=== PATIENT | female | born 1945 | race Caucasian/White ===

== ENCOUNTER 2019-07-25 09:45 | Outpatient (CLI) | payer MEDICARE, OTHER, SELFPAY ==
--- NOTE | 2019-07-25 10:07 | MM_ITS ---
WS: [id number] BILATERAL DIGITAL SCREENING MAMMOGRAPHY WITH CAD CLINICAL INFORMATION: SCREENING HISTORY: Screening mammogram. No current complaints. COMPARISON: TECHNIQUE: Bilateral CC and MLO views. FINDINGS: The breasts are composed of heterogeneous fibroglandular density tissue, which can limit the detectio n of small underlying mass lesions. Lucent centered calcifications. No suspicious mass, asymmetry, ca lcifications, or architectural distortion. No evidence of malignancy. MM/[place] [id number] IMPRESSION: BI-RADS: 2-Benign FOLLOW UP: 1 Year Follow-up Recommend return to annual screening mammography.
== END 2019-07-25 09:46 | disposition home or self-care (01) ==
PROVIDERS: Family Provider Family Medicine; PCP Family Medicine; Visit Provider Nurse Practitioner
DX: Z12.31 Encounter for screening mammogram for malignant neoplasm of breast (principal); C83.38 Diffuse large B-cell lymphoma, lymph nodes of multiple sites; Z45.2 Encounter for adjustment and management of vascular access device
CPT/HCPCS: 77067; 96523

== ENCOUNTER 2019-08-04 22:19 | Emergency (ER) | payer MEDICARE, OTHER, SELFPAY ==
[2019-08-04 22:25] VITALS: BP 119/70; PULSE 77; RESP 16; TEMP 36.6; O2SAT 97; BMI 22.6
--- NOTE | 2019-08-04 22:31 | ED_ITS ---
Entered by Tanya Anguiano, acting as scribe for Michael Ryan DO HPI - Eye Problem General: Chief complaint: Eye Problems Stated complaint: left eye redness Time Seen by Provider: 08/04/19 22:31 Source: patient Mode of arrival: ambulatory Limitations: no limitations History of Present Illness: HPI Narrative: 74 yo f came to the er pov for eye problems. Onset was today. Pt states that she woke up with both eyes pink. Pt states that her vision is fine. MD chief complaint: eye redness Onset (ago): day(s) (today) Onset description: sudden Duration: constant Location: left eye Associated symptoms: Denies fever(s), headache(s), nausea or vomiting Review of Systems Const: Denies: fever Eyes: Denies: change in vision or blurry vision ENMT: Denies: painful swallowing, swelling of lips/tongue, bleeding gums, dental pain, Change in hearing, nose bleeds, post nasal drip or facial/sinus pain Card: Denies: chest pain, palpitations, irregular heart rhythm, edema, swelling of feet/ankles, shortness of breath on exertion or shortness of breath when lying down Resp: Denies: shortness of breath, productive cough, non-productive cough or wheezing GI: Denies: nausea or vomiting Neuro: Denies: headache PFSH ED PFSH: Statuses (acute, chronic, etc) shown below reflect problem list status as previously entered and may not be historically accurate Social History Smoking and tobacco status: never smoked Physical Exam Const: GENERAL APPEARANCE: well developed ORIENTATION/CONSCIOUSNESS: Yes oriented to person, Yes oriented to place and Yes oriented to time HENMT: COMMON NORMALS: normocephalic, external ears normal and external nose normal HEAD & SCALP: normocephalic; no scalp tenderness FACE & SINUS: normal facial exam NOSE: external nose normal and no nasal discharge EXTERNAL EAR: Yes external ears normal MOUTH: tongue normal TEETH & GINGIVA: no abnormal tooth and associated gingiva THROAT: posterior oropharynx normal; no peritonsillar mass Eye: COMMON NORMALS: PERRL and EOMs intact bilaterally EYELID: eyelids normal CONJUNCTIVA: Yes conjunctiva abnormal positive left subconjunctival hemorrhage PUPIL: Yes PERRL Neck/C-Spine: COMMON NORMALS: full ROM GENERAL: No tracheal deviation Chest: COMMONS NORMALS: inspection of chest normal CHEST: No tenderness Resp: COMMON NORMALS: clear to auscultation bilaterally EFFORT & INSPECTION: No tachypneic, No respiratory distress, No retractions, No uses accessory muscles and No tracheal deviation AUSCULTATION: clear to auscultation bilaterally, no rhonchi, no wheezes and lung sounds not diminished Cardio: COMMON NORMALS: regular rate and regular rhythm RATE: regular rate RHYTHM: regular rhythm HEART SOUNDS: no murmurs PERIPHERAL PULSES: radial pulses present GI: INSPECTION: No abdominal distension PALPATION: No guarding and No rigid Neuro: SENSORIUM/ORIENTATION: Yes oriented to person, Yes oriented to place and Yes oriented to time Psych: COMMON NORMALS: mental status grossly normal Skin: COMMON NORMALS: no rashes or lesions noted GENERAL SKIN EXAM: no rashes or lesions noted Course ED course: Nonpainful redness to the left eye, appears to be subconjunctival hemorrhage. The patient states that she was lifting buckets of dirt earlier in the day which may be a cause Vital Signs: Vital signs: Vital Signs Temperature 97.8 F 08/04/19 22:25 Pulse Rate 61 08/04/19 23:16 Respiratory Rate 18 08/04/19 23:16 Blood Pressure 116/74 08/04/19 23:16 Pulse Oximetry 98 08/04/19 23:16 Discharge Plan Discharge Patient Disposition: Home, Self-Care Clinical Impression: Subconjunctival hemorrhage Qualifiers: Laterality: left Qualified Code(s): H11.32 - Conjunctival hemorrhage, left eye Condition: Stable Prescriptions: No Action Unable to Assess RF: 0 Discharge Orders: Discharge Order (Routine); Ordered 08/04/19 Ordered By: Michael Ryan Referrals: Jaycee Reed MD [Primary Care Provider] - Tevin Diaz MD [Physician] - 4-7 days Discharge Diet: Usual diet Discharge Activity: Increase activity as tolerated Patient Instructions: Subconjunctival Hemorrhage (ED) Activity Restrictions/Additional Instructions: Limit straining or forceful actions. Return for blurred vision, eye pain, other concerning symptoms Discharge Date/Time: 08/04/19 23:14 Coding Level of Care Code ED Winemaker for Chg Fwd The documentation recorded by the Silvio lynn Stephanie Lyn, accurately reflects the service I personally performed and the decisions made by me, Michael Ryan, DO Aug 04, 2019 22:19
[2019-08-04 23:16] VITALS: BP 116/74; PULSE 61; RESP 18; O2SAT 98
== END 2019-08-04 23:14 | disposition home or self-care (01) ==
PROVIDERS: Emergency Provider Emergency Medicine; Family Provider Family Medicine; PCP Family Medicine
DX: H11.32 Conjunctival hemorrhage, left eye (principal)
CPT/HCPCS: 99281

== ENCOUNTER 2019-08-24 11:22 | Outpatient (CLI) | payer MEDICARE, OTHER, SELFPAY | END 2019-08-24 11:23 | disposition home or self-care (01) | LOC: ONCMED 11:22 | PROVIDERS: Family Provider Family Medicine; PCP Family Medicine; Visit Provider Internal Medicine Medical Oncology | DX: Z45.2 Encounter for adjustment and management of vascular access device (principal) | CPT/HCPCS: 96523 ==

== ENCOUNTER 2019-09-21 10:09 | Outpatient (CLI) | payer MEDICARE, OTHER, SELFPAY | END 2019-09-21 10:10 | disposition home or self-care (01) | LOC: ONCMED 10:09 | PROVIDERS: Family Provider Family Medicine; PCP Family Medicine; Visit Provider Internal Medicine Medical Oncology | DX: Z45.2 Encounter for adjustment and management of vascular access device (principal) | CPT/HCPCS: 96523 ==

== ENCOUNTER 2019-10-22 09:37 | Outpatient (CLI) | payer MEDICARE, OTHER, SELFPAY | END 2019-10-22 09:38 | disposition home or self-care (01) | LOC: ONCMED 09:37 | PROVIDERS: Family Provider Family Medicine; PCP Family Medicine; Visit Provider Internal Medicine Medical Oncology | DX: Z45.2 Encounter for adjustment and management of vascular access device (principal) | CPT/HCPCS: 96523 ==

== ENCOUNTER 2019-11-22 10:03 | Outpatient (CLI) | payer MEDICARE, OTHER, SELFPAY | END 2019-11-22 10:04 | disposition home or self-care (01) | LOC: ONCMED 10:05 | PROVIDERS: PCP Family Medicine; Visit Provider Internal Medicine Medical Oncology | DX: Z45.2 Encounter for adjustment and management of vascular access device (principal); C83.38 Diffuse large B-cell lymphoma, lymph nodes of multiple sites | CPT/HCPCS: 96523 ==

== ENCOUNTER 2019-12-18 09:18 | Outpatient (CLI) | payer MEDICARE, OTHER, SELFPAY ==
--- NOTE | 2019-12-18 09:37 | MR_ITS ---
WS: [id number] MRI LEFT KNEE NONCONTRAST TECHNIQUE: Axial PD, coronal PD fat sat, coronal PD, sagittal PD, and sagittal PD fat-sat images obta ined. CLINICAL INFORMATION: LT MEDIAL KNEE PAIN COMPARISON: None. FINDINGS: Normal anterior and posterior cruciate ligaments. Distal quadriceps and patella tendons are intact. H ypertrophic patella. Chronic degenerative narrowing medial and lateral joint compartments. Chronic th inning of the menisci. Horizontal and radial tear involving the posterior horn medial meniscus extend ing to the articular surface. Lateral meniscus is better preserved. Small amount of edema about the m edial meniscus. Edema along the superficial and deep fibers of the MCL which appears intact consistent with grade 2 i njury. Normal LCL. Degenerative edema involving the medial joint compartment in the femoral condyle a nd tibial plateau. Hypertrophic changes along the joint line. MR/MR knee LT wo con* [id number] IMPRESSION: 1. Normal anterior and posterior cruciate ligaments. 2. Horizontal and radial tear involving the posterior horn medial meniscus ext ending to the articular surface. 3. Advanced degenerative narrowing involving the medial joint compartment with near complete loss of joint space and subchondral edema. 4. Grade 2 ligamentous injury involving the MCL which is intact.
== END 2019-12-18 09:19 | disposition home or self-care (01) ==
LOC: RADWPI 09:23
PROVIDERS: Family Provider Family Medicine; PCP Family Medicine; Visit Provider Family Medicine
DX: M25.562 Pain in left knee (principal); S83.242A Other tear of medial meniscus, current injury, left knee, initial encounter; X58.XXXA Exposure to other specified factors, initial encounter
CPT/HCPCS: 73721

== ENCOUNTER 2019-12-24 11:46 | Outpatient (CLI) | payer MEDICARE, OTHER, SELFPAY ==
[2019-12-24 12:24] LABS: Basophils % 0.2 %; Eosinophils # 0.1 10^3/uL (0.0-0.8); Eosinophils % 1.7 %; Hematocrit 32.7 % (37.0-47.0); Hemoglobin 10.6 g/dL (11.5-15.3); Lymphocytes # 1.5 10^3/uL (0.8-4.8); Lymphocytes % 32.9 %; Mean Corpuscular HGB Conc 32.4 g/dL (30.0-36.0); Mean Corpuscular Hemoglobin 33.3 pg (28.0-34.0); Mean Corpuscular Volume 102.8 fL (81-99); Mean Platelet Volume 8.9 fL (7.4-10.4); Monocytes # 0.4 10^3/uL (0.2-0.9); Monocytes % 8.9 %; Neutrophils # 2.6 10^3/uL (1.8-7.7); Neutrophils % 56.1 %; Nucleated Red Blood Cells % 0 %; Platelet Count 149 10^3/cmm (130-400); Red Blood Count 3.18 10^6/uL (4.1-5.3); White Blood Count 4.6 10^3/uL (4.0-10.0)
[2019-12-24 12:37] LABS: Alanine Aminotransferase 18 U/L (0-33); Alkaline Phosphatase 71 IU/L (35-105); Anion Gap 14.9 (5-19); Aspartate Amino Transferase 20 U/L (0-32); Blood Urea Nitrogen 16 mg/dL (8-23); Calcium 8.8 mg/dL (8.5-10.5); Carbon Dioxide 28 mmol/L (22-29); Chloride 101 mmol/L (98-107); Glucose 144 mg/dL (65-115); Osmolality Calculated 289 mOsm/kg (285-295); Potassium 3.9 mmol/L (3.5-5.1); Sodium 140 mmol/L (136-145); Total Bilirubin 0.2 mg/dL (0.15-1.2)
[2019-12-24 14:30] LABS: Lactate Dehydrogenase 212 U/L (135-214)
--- NOTE | 2019-12-28 09:33 | ONC FU_ITS ---
Dr. Noel Patient Follow-Up Note Patient: Ira Frost Unit #: [id number]: [id number] Dicatated By: Ehsan Noel M.D.Date of Visit:Dec 24, 2019 Onc Med Follow-up/Prog Note Chief Complaint: Lymphoma. 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 She was initially diagnosed with low-grade B cell lymphoma in August of 1999 when she presented with a chylous pleural effusion. There was also extensive retroperitoneal adenopathy. By CT scan it measured 7.5 x 5 cm and extended for a vertical length of 17-18 cm, from the level of the celiac axis to a level 4-5 cm below the bifurcation of the aorta. There was some associated hydronephrosis. The diagnosis was confirmed by right inguinal lymph node biopsy which showed grade I follicular lymphoma. She had an excellent response to treatment with 6 cycles of CVP chemotherapy, which she completed in January of 2000. She developed significant lower extremity pain following her chemotherapy. 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 Over time, it gradually resolved. She had no further treatment for the lymphoma. She was seen in March 2012 with new onset of lower extremity edema. A specific cause for that was never determined. There was no evidence of deep vein thrombosis by venous Doppler. CT scans did show some mesenteric and retroperitoneal adenopathy, but the largest lymph nodes measured only up to 1.5 cm, and they were FDG negative by PET. It was, nonetheless, felt to be suspicious for low-grade non-Hodgkin's lymphoma. There was also some mediastinal adenopathy, which appeared to be more likely reactive. Her swelling subsequently resolved and she had no further problems with the exception of an acute illness in June 2012 when she developed dizziness and vomiting. Evaluation in the emergency room was unrevealing. Her symptoms subsequently resolved, so this was most likely a viral syndrome. She remained on observation/expectant management. As of October 2015, her follow-up CT scan had shown some increase in the adenopathy, but with the largest node still relatively small at 2.24 cm, and she continued on observation. On 07/20/2016 she presented to the emergency room with an enlarging mass in the right side of the neck. She had been aware of it for a while, but she she had only recently made us aware of it. She was seen by Dr. Michaud as an outpatient and she underwent left axillary lymph node biopsy and placement of Port-A-Cath venous access device on 07/22/2016. The procedure was complicated by pneumothorax, requiring chest tube placement and hospitalization. Pathology on the lymph node biopsy was consistent with low-grade follicular lymphoma (grade 1-2/3). Restaging CT scans of the chest, abdomen, and pelvis on 07/28/2016 showed bulky right supraclavicular adenopathy. It measured 8.6 x 7.3 cm, but it was incompletely included on that study. A left subclavicular lymph node measured 1.1 cm. A postoperative fluid collection the left axilla measured 2.8 cm. There was additional smaller bilateral axillary adenopathy, largest measuring 1.7 x 1.3 cm. A precarinal mediastinal lymph node measured 1.4 x 1 cm, and a right hilar lymph node measured 1.9 x 1.2 cm. The abdomen/pelvis showed a generalized increase in the bulk of mesenteric and retroperitoneal lymphadenopathy with the entire process measuring about 11.2 cm in length and 4.8 cm in depth and extending over a vertical height of 13.9 cm. Bilateral inguinal lymph nodes measured up to 1.3 cm. Also noted were new multiple low density splenic metastatic lesions. She was seen for follow-up visit on 08/03/2016. At that point she had noted a significant decrease in her energy/activity tolerance, and her appetite also had declined. Her ECOG score was still 1. She was not having fever or night sweats. Her weight had dropped 13 pounds since October 2015. As the biopsy was still consistent with low-grade lymphoma, I opted to treat her with bendamustine/Rituxan. She presented for cycle 1 day 1 chemotherapy on 08/05/2016. Her laboratory studies at that time showed her hemoglobin decreased to 9.7 g compared to 12.0 g on a previous study from 07/28/2016. Her creatinine had increased from 1.1 to 1.3 mg/dL and a calcium increased from 10.4 to 13.7 mg/dL. She completed the day 1 bendamustine with no adverse effects, but during the Rituxan infusion she developed tightness in her throat and difficulty breathing. She had a drop in her oxygen saturation. She did recover with additional IV Solu-Medrol and Benadryl. She was not able to complete the full dose of Rituxan. She was hospitalized overnight for IV hydration. She received additional steroid therapy as well as an infusion of sodium pamidronate. She was able to complete her day 2 bendamustine the following day. During subsequent follow-up she developed an enlarging nodule in the left axilla. Ultrasound was consistent with seroma. She also developed a generalized erythematous skin eruption. She was treated with methylprednisolone with gradual resolution of the rash. I had seen her for follow-up on 09/02/2016. At that point she was not showing a significant response to the chemotherapy, and by clinical evaluation, I had suspected transformation of her lymphoma. She was referred to [facility] for further management. She was confirmed there to have transformed diffuse large B-cell lymphoma with involvement in the supraclavicular lymph node and spleen, thus stage III. Her IPI-3 score was 3 based on age, LDH, and stage. She began treatment with R-CHOP chemotherapy, cycle 1 administered on 09/17/2016. Her treatment was complicated by severe neutropenia and anemia. She required transfusion, but she otherwise tolerated it well. She had evidence of complete response after 2 cycles by PET/CT on 10/28/2016. She continued treatment and completed cycle 4 of R-CHOP on 11/18/2016. She became severely pancytopenic following that treatment, requiring hospital admission. She recovered uneventfully. However, by that point she had experienced a significant decline in performance status. She returned to [facility]. As her PET/CT following 2 cycles of chemotherapy had shown complete response, she was then offered the option to stop her treatment and proceed stem cell transplant. She underwent BEAM conditioning followed by autologous stem cell transplant on 01/12/2017. On 01/27/2017 she was able to be discharged to a nearby nursing facility. She was then able to transfer to a local long-term where she continued to have gradual recovery. She subsequently was able to return home. Her medical history is other significant for degenerative arthritis and for nephrolithiasis. She has had no other ongoing medical illnesses. Prior surgeries have been limited to tonsillectomy and removal of some benign skin lesions. She is a nonsmoker. INTERIM HISTORY: Restaging CT scans of the chest, abdomen, and pelvis on 04/22/2017 showed resolution of right supraclavicular all whitt lymphadenopathy and of bilateral axillary, mediastinal, and right hilar lymphadenopathy. There was an inferior lingular shaped subpleural soft tissue focus suggestive of focal atelectasis, postinflammatory change, or neoplasm. There was just trace residual left pleural effusion. There was continued decreased mesenteric and retroperitoneal lymphadenopathy and resolution of splenic low attenuation masses. Echocardiogram on 04/28/2017 showed normal left ventricular ejection fraction at 66%. There was no pericardial effusion. She continued on observation/expectant management. Repeat CT scans of the chest, abdomen, and pelvis on 03/27/2018 showed very marginal enlargement of numerous bilateral subcentimeter pulmonary nodules. There was no axillary, hilar, or mediastinal lymphadenopathy noted. There also was no evidence of recurrent lymphadenopathy in the abdomen/pelvis. There was unchanged central mesentery hazy opacity and subcentimeter central mesenteric shotty lymph nodes also appeared stable. Her surveillance CT scans on 06/26/2018 showed slight increase in multilobar, noncalcified pulmonary nodules, the largest measuring 5 mm. As on the prior study these nodules had a very minimal increase in the range of 1 to 2 mm. These were felt to be possibly postinfectious or related to metastatic disease or to lymphoma. There was no adenopathy in the chest, abdomen or pelvis. Central mesenteric misting was stable. There was new mild dilatation of the right renal pelvis and proximal ureter. No stone was identified, and it was felt to be possibly due to mild narrowing of the proximal right ureter or to transient dilatation of the renal pelvis. On 11/24/2018 she presented with complaints of being exhausted and pale. There were no significant changes in her laboratory studies or clinical exam. Restaging CT scans of the chest, abdomen, and pelvis on 12/28/2018 showed stable appearance of left upper and lower lobe subcentimeter noncalcified pulmonary nodules. There was resolution of right middle lobe pneumonia since July 2018. There was no lymphadenopathy or other evidence of disease progression in the abdomen/pelvis. In the absence of any obvious recurrence/progression of her lymphoma, she continued on observation/expectant management. She is seen for a scheduled visit. She has been feeling good generally. Her main complaint is that she had recently injured her left knee while gardening. She has had it evaluated with MRI, that result has not been reported yet. She says it is getting better. She has pretty good energy. She is doing light work. ECOG score is 1. Her appetite is good. She has no fever or night sweats. She has no shortness of breath, cough, or chest pain. She currently has no GI or complaints. In particular, she has had no further diarrhea. She has no other joint or bone pain. She has no focal neurologic symptoms. Medications: Acyclovir 1 (400 mg) Tablet Oral b.i.d., C 500 1 Tablet (of 500 mg) Oral b.i.d., Calcium 1 (250 mg) Capsule Oral daily, [employer] Fish Oil 1 (1000 mg) Capsule Oral daily, Multi-Vitamin 1 Tablet Oral daily Allergies: Demerol Review of Systems: Constitutional - Her energy is pretty good. She is doing gardening and other light work. Appetite is good and weight is stable. No fever, night sweats, or hot flashes. ECOG score is 1, ENMT - No sinus congestion/drainage. No mouth sores. No sore throat or difficulty swallowing, Hematologic/Lymphatic - No abnormal bruising or bleeding, Respiratory - No shortness of breath. No cough. No pleuritic pain or hemoptysis, Cardiovascular - No angina pain. No palpitations, Gastrointestinal - No nausea or vomiting. She has some acid reflux, but not bad. She is not having to take medication. She has not been having diarrhea. No constipation. No blood in the stool or black stools, Genitourinary (F) - No dysuria or hematuria. No urinary frequency. No urgency or incontinence, Musculoskeletal - She recently her left knee while working in the garden. It is getting better. She has no other joint or bone pain, Integumentary - No skin rash, Neurologic - No headache or dizziness. No numbness or tingling. No other focal neurologic symptoms, Psychiatric - No anxiety or depression. No insomnia. Vital Signs: Performed on Dec 24, 2019 13:36 Height - 67.00 in Weight - 143.2 lbs (HIGH) BSA - 1.75 sq.m BMI - 22.43 Temperature - 98.3 F (LOW) Pulse - 70 /min Respiration - 18 /min BP - 109/61 mm(hg) O2 Sat - 98 % Pain - 0 Physical Examination: Constitutional - She has limited mobility, but she otherwise looks pretty good, Eyes - Sclerae nonicteric. Conjunctivae clear, ENMT - No lesions noted in the oral cavity, Hematologic/Lymphatic - No cervical, clavicular, or axillary adenopathy, Respiratory - Lungs are clear with good air movement bilaterally, Cardiovascular - Heart rhythm is regular. There is no murmur, gallop or rub noted, Abdomen - Soft. Liver and spleen are not enlarged. There is no abdominal mass or ascites noted and there is no inguinal adenopathy, Extremities - No edema, Neurologic - There are no focal neurologic deficits noted. Lab/Imaging: Test performed on Dec 24, 2019 12:04 LDH (Total) 212 U/L Sodium 140 mmol/L Potassium 3.9 mmol/L Chloride 101 mmol/L CO2 28 mmol/L Anion Gap 14.9 BUN 16 mg/dL Creatinine 0.7 mg/dL Cr Clearance (Est) 71.21 mL/min Glucose 144 mg/dL Calcium 8.8 mg/dL Protein, Total 6.0 g/dL Albumin 4.0 g/dL Globulin 2.0 g/dL Bilirubin, Total 0.2 mg/dL ALT (SGPT) 18 U/L AST (SGOT) 20 U/L Alkaline Phosphatase 71 IU/L WBC 4.6 10 3/uL RBC 3.18 10 6/uL HGB 10.6 g/dL HCT 32.7 % MCV 102.8 fL MCH 33.3 pg MCHC 32.4 g/dL RDW 14.0 % Platelet Count 149 10 3/cmm MPV 8.9 fL Neutrophils 2.6 10 3/uL Lymphocytes 1.5 10 3/uL Monocytes 0.4 10 3/uL Eosinophils 0.1 10 3/uL Basophils 0.0 10 3/uL Neutrophil % 56.1 % Lymphocyte % 32.9 % Monocyte % 8.9 % Eosinophil % 1.7 % Basophils % 0.2 % NRBC % 0 % Impression: 1. Patient with transformed diffuse large B cell lymphoma, stage III, IPI score 3. The diagnosis was confirmed by needle biopsy of right supraclavicular mass on 09/08/2016. 2. She began a course of R-CHOP chemotherapy on 09/17/2016. She appeared to have complete response after 2 cycles of treatment. She continued her chemotherapy and she received her fourth cycle on 11/18/2016. That treatment was complicated by severe pancytopenia, requiring hospital admission. 3. She was then given the option to proceed with stem cell transplant. She underwent BEAM conditioning followed by autologous stem cell transplant, day 01/12/2017. 4. She has developed significant elevation of liver enzymes, predominantly alkaline phosphatase, but with normal bilirubin. 5. She has a history of low-grade non-Hodgkin's lymphoma, stage CIELO at initial diagnosis in 1999. She had a good response to a course of treatment with CVP chemotherapy, which she completed in January 2000. She had subsequently been followed on observation/expectant management. 6. She initially had evidence of recurrence in July 2016. A left axillary lymph node biopsy was still consistent with low-grade lymphoma, and she had subsequently started treatment with bendamustine/Rituxan, cycle 1 day 1 on 08/05/2016. Her other medical illnesses include: 7. Nephrolithiasis. 8. Degenerative arthritis. She had very marginal performance status following high-dose chemotherapy/stem cell transplant. During follow-up she has remained mildly anemic, but she has continued to show gradual improvement in her performance status. Overall, she appears to be doing well clinically with no evidence of recurrence/progression of the lymphoma. Plan: She remains on observation/expectant management for the lymphoma. I will see her again in 6 months. In the meantime, I will go ahead and make arrangements to have her Port-A-Cath removed. Signed By: Ehsan Noel M.D. <<Signature on File>>
== END 2019-12-24 11:47 | disposition home or self-care (01) ==
LOC: ONCMED 11:49
PROVIDERS: PCP Family Medicine; Visit Provider Internal Medicine Medical Oncology
DX: C83.38 Diffuse large B-cell lymphoma, lymph nodes of multiple sites (principal); Z92.21 Personal history of antineoplastic chemotherapy; D64.9 Anemia, unspecified; Z94.84 Stem cells transplant status; N20.0 Calculus of kidney; M19.90 Unspecified osteoarthritis, unspecified site; Z95.828 Presence of other vascular implants and grafts
CPT/HCPCS: 36591; 80053; 83615; 85025; G0463

== ENCOUNTER 2020-01-09 09:42 | Day surgery (SDC) | payer MEDICARE, OTHER, SELFPAY ==
[2020-01-08 12:40] VITALS: BMI 20.6
[2020-01-09] MEDS: sodium chloride 0.9% 1,000 ML 30 ML IV (10:31)
--- NOTE | 2020-01-09 11:58 | W.PM.OPSUD ---
Surgery/Procedure H&P Update DATE OF PROCEDURE: January 09, 2020 DATE H&P PERFORMED: 01/07/20 H&P UPDATE INFORMATION: I have reviewed H&P completed within last 30 days, I have examined patient prior to procedure and No changes to prior documentation PREOP DIAGNOSIS: Removal of Port-A-Cath PLANNED PROCEDURE: Operation Date: 01/09/20 13:10 Proposed Procedures p Portacath Removal/[id number] C85.90(Not Applicable) - Conor Jiang MD
[2020-01-09 12:10] VITALS: BP 140/90; PULSE 62; RESP 16; O2SAT 100
[2020-01-09 12:15] VITALS: BP 153/80; PULSE 68; RESP 16; O2SAT 98
[2020-01-09 12:20] VITALS: BP 150/91; PULSE 72; RESP 16; O2SAT 100
[2020-01-09 12:25] VITALS: BP 141/82; PULSE 70; RESP 14; O2SAT 100
[2020-01-09] MEDS: lidocaine 1% INJ 20 mL IM (12:25)
[2020-01-09 12:30] VITALS: BP 144/79; PULSE 65; RESP 14; O2SAT 100
[2020-01-09 12:41] VITALS: BP 149/82; PULSE 61; RESP 18; TEMP 36.1; O2SAT 93
--- NOTE | 2020-01-09 15:17 | PM.OP ---
Operative Report Date of procedure: January 09, 2020 Pre-op Diagnosis: Removal of Port-A-Cath Post-op diagnosis: same Procedure Done: Removal of Mediport from the left subclavian vein Pathology: none sent Surgeon: Conor Jiang Anesthesia: Local Condition: stable Disposition: same day Procedure: Patient was taken to the operating room and her left chest was prepped and draped in a sterile manner. 20 mL of 1% lidocaine with 0.5% Marcaine was infiltrated around the MediPort and catheter in the left subclavian vein. Using a 15 blade the previous incision was opened, the subcutaneous tissue was divided using electrocautery and MediPort along the catheter was dissected free from the surrounding subcutaneous tissue and removed entirely. The wound was irrigated with saline, hemostasis ensured with electrocautery and subcutaneous tissue was approximated using 3-0 Vicryl suture and skin was closed using running subcuticular 4-0 Monocryl suture. 4x4 and sterile dressings were used as a pressure dressing. The patient was transferred to the recovery room in stable condition.
== END 2020-01-09 13:16 | disposition home or self-care (01) ==
PROVIDERS: PCP Family Medicine; Visit Provider Surgery
PROC: (CPT 36589; principal; 2020-01-09 13:10)
DX: Z45.2 Encounter for adjustment and management of vascular access device (principal)
CPT/HCPCS: 36590; 12345; J2001; J3490; J7030

== ENCOUNTER → 2020-01-10 11:46 | Outpatient (BNVA) | payer MEDICARE, OTHER, SELFPAY | PROVIDERS: PCP Family Medicine; Referring Provider Family Medicine; Visit Provider Orthopaedic Surgery | DX: M17.12 Unilateral primary osteoarthritis, left knee (principal); M25.562 Pain in left knee | CPT/HCPCS: 73560; 73565 ==

== ENCOUNTER 2020-06-26 10:01 | Outpatient (CLI) | payer MEDICARE, OTHER, SELFPAY ==
[2020-06-26 10:46] LABS: Basophils % 0.4 %; Eosinophils % 0.8 %; Hematocrit 36.5 % (37.0-47.0); Hemoglobin 11.8 g/dL (11.5-15.3); Lymphocytes # 1.4 10^3/uL (0.8-4.8); Lymphocytes % 27.5 %; Mean Corpuscular HGB Conc 32.3 g/dL (30.0-36.0); Mean Corpuscular Hemoglobin 32.8 pg (28.0-34.0); Mean Corpuscular Volume 101.4 fL (81-99); Monocytes # 0.4 10^3/uL (0.2-0.9); Monocytes % 7.7 %; Neutrophils % 63.4 %; Nucleated Red Blood Cells % 0 %; Platelet Count 180 10^3/cmm (130-400); Red Cell Distribution Width 13.2 % (12.1-15.1); White Blood Count 5.2 10^3/uL (4.0-10.0)
[2020-06-26 11:13] LABS: Alanine Aminotransferase 22 U/L (0-33); Albumin Level 4.3 g/dL (3.5-5.2); Alkaline Phosphatase 95 IU/L (35-105); Aspartate Amino Transferase 22 U/L (0-32); Blood Urea Nitrogen 18 mg/dL (8-23); Calcium 9.2 mg/dL (8.5-10.5); Carbon Dioxide 26 mmol/L (22-29); Chloride 101 mmol/L (98-107); Glucose 103 mg/dL (65-115); Lactate Dehydrogenase 190 U/L (135-214); Osmolality Calculated 286 mOsm/kg (285-295); Sodium 137 mmol/L (136-145); Total Bilirubin 0.2 mg/dL (0.15-1.2); Total Protein 6.3 g/dL (6.6-8.7)
--- NOTE | 2020-06-29 13:44 | ONC FU_ITS ---
Dr. Noel Patient Follow-Up Note Patient: Ira Frost Unit #: [id number]: 1945 Dicatated By: Ehsan Noel M.D.Date of Visit:Jun 26, 2020 Onc Med Follow-up/Prog Note Chief Complaint: Lymphoma. 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 She was initially diagnosed with low-grade B cell lymphoma in August of 1999 when she presented with a chylous pleural effusion. There was also extensive retroperitoneal adenopathy. By CT scan it measured 7.5 x 5 cm and extended for a vertical length of 17-18 cm, from the level of the celiac axis to a level 4-5 cm below the bifurcation of the aorta. There was some associated hydronephrosis. The diagnosis was confirmed by right inguinal lymph node biopsy which showed grade I follicular lymphoma. She had an excellent response to treatment with 6 cycles of CVP chemotherapy, which she completed in January of 2000. She developed significant lower extremity pain following her chemotherapy. 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 Over time, it gradually resolved. She had no further treatment for the lymphoma. She was seen in March 2012 with new onset of lower extremity edema. A specific cause for that was never determined. There was no evidence of deep vein thrombosis by venous Doppler. CT scans did show some mesenteric and retroperitoneal adenopathy, but the largest lymph nodes measured only up to 1.5 cm, and they were FDG negative by PET. It was, nonetheless, felt to be suspicious for low-grade non-Hodgkin's lymphoma. There was also some mediastinal adenopathy, which appeared to be more likely reactive. Her swelling subsequently resolved and she had no further problems with the exception of an acute illness in June 2012 when she developed dizziness and vomiting. Evaluation in the emergency room was unrevealing. Her symptoms subsequently resolved, so this was most likely a viral syndrome. She remained on observation/expectant management. As of October 2015, her follow-up CT scan had shown some increase in the adenopathy, but with the largest node still relatively small at 2.24 cm, and she continued on observation. On 07/20/2016 she presented to the emergency room with an enlarging mass in the right side of the neck. She had been aware of it for a while, but she she had only recently made us aware of it. She was seen by Dr. Michaud as an outpatient and she underwent left axillary lymph node biopsy and placement of Port-A-Cath venous access device on 07/22/2016. The procedure was complicated by pneumothorax, requiring chest tube placement and hospitalization. Pathology on the lymph node biopsy was consistent with low-grade follicular lymphoma (grade 1-2/3). Restaging CT scans of the chest, abdomen, and pelvis on 07/28/2016 showed bulky right supraclavicular adenopathy. It measured 8.6 x 7.3 cm, but it was incompletely included on that study. A left subclavicular lymph node measured 1.1 cm. A postoperative fluid collection the left axilla measured 2.8 cm. There was additional smaller bilateral axillary adenopathy, largest measuring 1.7 x 1.3 cm. A precarinal mediastinal lymph node measured 1.4 x 1 cm, and a right hilar lymph node measured 1.9 x 1.2 cm. The abdomen/pelvis showed a generalized increase in the bulk of mesenteric and retroperitoneal lymphadenopathy with the entire process measuring about 11.2 cm in length and 4.8 cm in depth and extending over a vertical height of 13.9 cm. Bilateral inguinal lymph nodes measured up to 1.3 cm. Also noted were new multiple low density splenic metastatic lesions. She was seen for follow-up visit on 08/03/2016. At that point she had noted a significant decrease in her energy/activity tolerance, and her appetite also had declined. Her ECOG score was still 1. She was not having fever or night sweats. Her weight had dropped 13 pounds since October 2015. As the biopsy was still consistent with low-grade lymphoma, I opted to treat her with bendamustine/Rituxan. She presented for cycle 1 day 1 chemotherapy on 08/05/2016. Her laboratory studies at that time showed her hemoglobin decreased to 9.7 g compared to 12.0 g on a previous study from 07/28/2016. Her creatinine had increased from 1.1 to 1.3 mg/dL and a calcium increased from 10.4 to 13.7 mg/dL. She completed the day 1 bendamustine with no adverse effects, but during the Rituxan infusion she developed tightness in her throat and difficulty breathing. She had a drop in her oxygen saturation. She did recover with additional IV Solu-Medrol and Benadryl. She was not able to complete the full dose of Rituxan. She was hospitalized overnight for IV hydration. She received additional steroid therapy as well as an infusion of sodium pamidronate. She was able to complete her day 2 bendamustine the following day. During subsequent follow-up she developed an enlarging nodule in the left axilla. Ultrasound was consistent with seroma. She also developed a generalized erythematous skin eruption. She was treated with methylprednisolone with gradual resolution of the rash. I had seen her for follow-up on 09/02/2016. At that point she was not showing a significant response to the chemotherapy, and by clinical evaluation, I had suspected transformation of her lymphoma. She was referred to [facility] for further management. She was confirmed there to have transformed diffuse large B-cell lymphoma with involvement in the supraclavicular lymph node and spleen, thus stage III. Her IPI-3 score was 3 based on age, LDH, and stage. She began treatment with R-CHOP chemotherapy, cycle 1 administered on 09/17/2016. Her treatment was complicated by severe neutropenia and anemia. She required transfusion, but she otherwise tolerated it well. She had evidence of complete response after 2 cycles by PET/CT on 10/28/2016. She continued treatment and completed cycle 4 of R-CHOP on 11/18/2016. She became severely pancytopenic following that treatment, requiring hospital admission. She recovered uneventfully. However, by that point she had experienced a significant decline in performance status. She returned to [facility]. As her PET/CT following 2 cycles of chemotherapy had shown complete response, she was then offered the option to stop her treatment and proceed stem cell transplant. She underwent BEAM conditioning followed by autologous stem cell transplant on 01/12/2017. On 01/27/2017 she was able to be discharged to a nearby nursing facility. She was then able to transfer to a local [facility] where she continued to have gradual recovery. She subsequently was able to return home. Her medical history is other significant for degenerative arthritis and for nephrolithiasis. She has had no other ongoing medical illnesses. Prior surgeries have been limited to tonsillectomy and removal of some benign skin lesions. She is a nonsmoker. INTERIM HISTORY: Restaging CT scans of the chest, abdomen, and pelvis on 04/22/2017 showed resolution of right supraclavicular all whitt lymphadenopathy and of bilateral axillary, mediastinal, and right hilar lymphadenopathy. There was an inferior lingular shaped subpleural soft tissue focus suggestive of focal atelectasis, postinflammatory change, or neoplasm. There was just trace residual left pleural effusion. There was continued decreased mesenteric and retroperitoneal lymphadenopathy and resolution of splenic low attenuation masses. Echocardiogram on 04/28/2017 showed normal left ventricular ejection fraction at 66%. There was no pericardial effusion. She continued on observation/expectant management. Repeat CT scans of the chest, abdomen, and pelvis on 03/27/2018 showed very marginal enlargement of numerous bilateral subcentimeter pulmonary nodules. There was no axillary, hilar, or mediastinal lymphadenopathy noted. There also was no evidence of recurrent lymphadenopathy in the abdomen/pelvis. There was unchanged central mesentery hazy opacity and subcentimeter central mesenteric shotty lymph nodes also appeared stable. Her surveillance CT scans on 06/26/2018 showed slight increase in multilobar, noncalcified pulmonary nodules, the largest measuring 5 mm. As on the prior study these nodules had a very minimal increase in the range of 1 to 2 mm. These were felt to be possibly postinfectious or related to metastatic disease or to lymphoma. There was no adenopathy in the chest, abdomen or pelvis. Central mesenteric misting was stable. There was new mild dilatation of the right renal pelvis and proximal ureter. No stone was identified, and it was felt to be possibly due to mild narrowing of the proximal right ureter or to transient dilatation of the renal pelvis. On 11/24/2018 she presented with complaints of being exhausted and pale. There were no significant changes in her laboratory studies or clinical exam. Restaging CT scans of the chest, abdomen, and pelvis on 12/28/2018 showed stable appearance of left upper and lower lobe subcentimeter noncalcified pulmonary nodules. There was resolution of right middle lobe pneumonia since July 2018. There was no lymphadenopathy or other evidence of disease progression in the abdomen/pelvis. In the absence of any obvious recurrence/progression of her lymphoma, she continued on observation/expectant management. She is seen for a followup visit. She has been feeling good generally. Her energy is pretty good, though she still tends to feel draggy. Her ECOG score is 1. Her appetite is good. She has no fever or night sweats. She has no shortness of breath, cough, or chest pain. She has no GI or complaints. She still has pain in her left knee, but not as bad. She sitll has a little numbness in her feet. Medications: Acyclovir 1 (400 mg) Tablet Oral b.i.d., C 500 1 Tablet (of 500 mg) Oral b.i.d., Calcium 1 (250 mg) Capsule Oral daily, [facility] Fish Oil 1 (1000 mg) Capsule Oral daily, Multi-Vitamin 1 Tablet Oral daily Allergies: Demerol Review of Systems: Constitutional - Her energy has been pretty good, though she still feels draggy. She is able to do light work. Her appetite is good. Her weight is stable. No fever, night sweats, or hot flashes. ECOG score is 1, ENMT - No sinus congestion/drainage. No mouth sores. No sore throat or difficulty swallowing, Hematologic/Lymphatic - She still has some bruising, Respiratory - No shortness of breath. No cough. No pleuritic pain or hemoptysis, Cardiovascular - No angina pain. No palpitations, Gastrointestinal - No nausea or vomiting. No heartburn or acid reflux. No diarrhea or constipation. No blood in the stool or black stools, Genitourinary (F) - No dysuria or hematuria. No urinary frequency. No urgency or incontinence, Musculoskeletal - She has some joint pain, especially the left knee. It is better now than it was, Integumentary - No skin rash, Neurologic - No headache or dizziness, but she does complain that she is not as sure footed. She still has a little numbness in her feet. No other focal neurologic symptoms, Psychiatric - No anxiety or depression. She sleeps 4 to 5 hours a night. Vital Signs: Performed on Jun 26, 2020 13:34 Height - 67.00 in Weight - 146.4 lbs (HIGH) BSA - 1.77 sq.m BMI - 22.93 Temperature - 97.8 F (LOW) Pulse - 87 /min Respiration - 16 /min BP - 102/64 mm(hg) O2 Sat - 96 % Pain - 0 Physical Examination: Constitutional - She looks good generally, Eyes - Sclerae nonicteric. Conjunctivae clear, ENMT - No lesions noted in the oral cavity, Hematologic/Lymphatic - No cervical, clavicular, or axillary adenopathy, Respiratory - Lungs are clear with good air movement bilaterally, Cardiovascular - Heart rhythm is regular. There is no murmur, gallop, or rub noted, Abdomen - Soft. Liver and spleen are not enlarged. There is no abdominal mass or ascites noted and there is no inguinal adenopathy, Extremities - No edema, Neurologic - No focal neurologic deficits noted. Lab/Imaging: Test performed on Jun 26, 2020 10:18 LDH (Total) 190 U/L Sodium 137 mmol/L Potassium 4.0 mmol/L Chloride 101 mmol/L CO2 26 mmol/L Anion Gap 14.0 BUN 18 mg/dL Creatinine 0.6 mg/dL Cr Clearance (Est) 84.93 mL/min Glucose 103 mg/dL Osmolality - Calculated 286 mOsm/kg Calcium 9.2 mg/dL Protein, Total 6.3 g/dL Albumin 4.3 g/dL Globulin 2.0 g/dL Bilirubin, Total 0.2 mg/dL ALT (SGPT) 22 U/L AST (SGOT) 22 U/L Alkaline Phosphatase 95 IU/L WBC 5.2 10 3/uL RBC 3.60 10 6/uL HGB 11.8 g/dL HCT 36.5 % MCV 101.4 fL MCH 32.8 pg MCHC 32.3 g/dL RDW 13.2 % Platelet Count 180 10 3/cmm MPV 9.0 fL Neutrophils 3.30 10 3/uL Lymphocytes 1.4 10 3/uL Monocytes 0.4 10 3/uL Eosinophils 0.0 10 3/uL Basophils 0.0 10 3/uL Neutrophil % 63.4 % Lymphocyte % 27.5 % Monocyte % 7.7 % Eosinophil % 0.8 % Basophils % 0.4 % NRBC % 0 % Impression: 1. Patient with transformed diffuse large B cell lymphoma, stage III, IPI score 3. The diagnosis was confirmed by needle biopsy of right supraclavicular mass on 09/08/2016. 2. She began a course of R-CHOP chemotherapy on 09/17/2016. She appeared to have complete response after 2 cycles of treatment. She continued her chemotherapy and she received her fourth cycle on 11/18/2016. That treatment was complicated by severe pancytopenia, requiring hospital admission. 3. She was then given the option to proceed with stem cell transplant. She underwent BEAM conditioning followed by autologous stem cell transplant, day 01/12/2017. 4. She has developed significant elevation of liver enzymes, predominantly alkaline phosphatase, but with normal bilirubin. 5. She has a history of low-grade non-Hodgkin's lymphoma, stage CIELO at initial diagnosis in 1999. She had a good response to a course of treatment with CVP chemotherapy, which she completed in January 2000. She had subsequently been followed on observation/expectant management. 6. She initially had evidence of recurrence in July 2016. A left axillary lymph node biopsy was still consistent with low-grade lymphoma, and she had subsequently started treatment with bendamustine/Rituxan, cycle 1 day 1 on 08/05/2016. Her other medical illnesses include: 7. Nephrolithiasis. 8. Degenerative arthritis. She had very marginal performance status following high-dose chemotherapy/stem cell transplant. During follow-up she has continued to show gradual improvement. Overall, she appears has been doing well clinically with no evidence of recurrence/progression of the lymphoma. Plan: She remains on observation/expectant management for the lymphoma. I will see her again in 6 months. In the meantime, I will go ahead and make arrangements to have her Port-A-Cath removed. Signed By: Ehsan Noel M.D. <<Signature on File>>
== END 2020-06-26 10:02 | disposition home or self-care (01) ==
LOC: ONCMED 10:04
PROVIDERS: PCP Family Medicine; Visit Provider Internal Medicine Medical Oncology
DX: Z85.72 Personal history of non-Hodgkin lymphomas (principal); N20.0 Calculus of kidney; M19.90 Unspecified osteoarthritis, unspecified site; Z92.21 Personal history of antineoplastic chemotherapy; Z94.84 Stem cells transplant status
CPT/HCPCS: 36415; 80053; 83615; 85025; G0463

== ENCOUNTER 2020-12-25 13:02 | Outpatient (CLI) | payer MEDICARE, OTHER, SELFPAY ==
[2020-12-25 14:00] LABS: Basophils % 0.5 %; Eosinophils % 0.9 %; Hematocrit 35.6 % (37.0-47.0); Hemoglobin 11.7 g/dL (11.5-15.3); Lymphocytes # 1.3 10^3/uL (0.8-4.8); Lymphocytes % 29.2 %; Mean Corpuscular HGB Conc 32.9 g/dL (30.0-36.0); Mean Corpuscular Hemoglobin 32.1 pg (28.0-34.0); Mean Corpuscular Volume 97.8 fL (81-99); Mean Platelet Volume 9.4 fL (7.4-10.4); Monocytes # 0.4 10^3/uL (0.2-0.9); Monocytes % 9.3 %; Neutrophils # 2.63 10^3/uL (1.8-7.7); Neutrophils % 59.9 %; Nucleated Red Blood Cells % 0 %; Platelet Count 160 10^3/cmm (130-400); Red Blood Count 3.64 10^6/uL (4.1-5.3); Red Cell Distribution Width 13.4 % (12.1-15.1); White Blood Count 4.4 10^3/uL (4.0-10.0)
[2020-12-25 14:13] LABS: Alanine Aminotransferase 15 U/L (0-33); Albumin Level 4.2 g/dL (3.5-5.2); Alkaline Phosphatase 84 IU/L (35-105); Anion Gap 13.3 (5-19); Aspartate Amino Transferase 20 U/L (0-32); Blood Urea Nitrogen 16 mg/dL (8-23); Calcium 9.3 mg/dL (8.5-10.5); Carbon Dioxide 28 mmol/L (22-29); Chloride 100 mmol/L (98-107); Globulin 2.1 g/dL (1.3-4.6); Glucose 100 mg/dL (65-115); Lactate Dehydrogenase 248 U/L (135-214); Osmolality Calculated 285 mOsm/kg (285-295); Potassium 4.3 mmol/L (3.5-5.1); Sodium 137 mmol/L (136-145); Total Bilirubin 0.3 mg/dL (0.15-1.2); Total Protein 6.3 g/dL (6.6-8.7)
--- NOTE | 2020-12-29 07:04 | ONC FU_ITS ---
Dr. Noel Patient Follow-Up Note Patient: Ira Frost Unit #: [id number]: 1945 Dicatated By: Ehsan Noel M.D.Date of Visit:Dec 25, 2020 Onc Med Follow-up/Prog Note Chief Complaint: Lymphoma. History of Present Illness: This is a 75 year-old woman with transformed diffuse large B-cell lymphoma. She was initially diagnosed with low-grade B cell lymphoma in August of 1999 when she presented with a chylous pleural effusion. There was also extensive retroperitoneal adenopathy. By CT scan it measured 7.5 x 5 cm and extended for a vertical length of 17-18 cm, from the level of the celiac axis to a level 4-5 cm below the bifurcation of the aorta. There was some associated hydronephrosis. The diagnosis was confirmed by right inguinal lymph node biopsy which showed grade I follicular lymphoma. She had an excellent response to treatment with 6 cycles of CVP chemotherapy, which she completed in January of 2000. She developed significant lower extremity pain following her chemotherapy. 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 Over time, it gradually resolved. She had no further treatment for the lymphoma. She was seen in March 2012 with new onset of lower extremity edema. A specific cause for that was never determined. There was no evidence of deep vein thrombosis by venous Doppler. CT scans did show some mesenteric and retroperitoneal adenopathy, but the largest lymph nodes measured only up to 1.5 cm, and they were FDG negative by PET. It was, nonetheless, felt to be suspicious for low-grade non-Hodgkin's lymphoma. There was also some mediastinal adenopathy, which appeared to be more likely reactive. Her swelling subsequently resolved and she had no further problems with the exception of an acute illness in June 2012 when she developed dizziness and vomiting. Evaluation in the emergency room was unrevealing. Her symptoms subsequently resolved, so this was most likely a viral syndrome. She remained on observation/expectant management. As of October 2015, her follow-up CT scan had shown some increase in the adenopathy, but with the largest node still relatively small at 2.24 cm, and she continued on observation. On 07/20/2016 she presented to the emergency room with an enlarging mass in the right side of the neck. She had been aware of it for a while, but she she had only recently made us aware of it. She was seen by Dr. Michaud as an outpatient and she underwent left axillary lymph node biopsy and placement of Port-A-Cath venous access device on 07/22/2016. The procedure was complicated by pneumothorax, requiring chest tube placement and hospitalization. Pathology on the lymph node biopsy was consistent with low-grade follicular lymphoma (grade 1-2/3). Restaging CT scans of the chest, abdomen, and pelvis on 07/28/2016 showed bulky right supraclavicular adenopathy. It measured 8.6 x 7.3 cm, but it was incompletely included on that study. A left subclavicular lymph node measured 1.1 cm. A postoperative fluid collection the left axilla measured 2.8 cm. There was additional smaller bilateral axillary adenopathy, largest measuring 1.7 x 1.3 cm. A precarinal mediastinal lymph node measured 1.4 x 1 cm, and a right hilar lymph node measured 1.9 x 1.2 cm. The abdomen/pelvis showed a generalized increase in the bulk of mesenteric and retroperitoneal lymphadenopathy with the entire process measuring about 11.2 cm in length and 4.8 cm in depth and extending over a vertical height of 13.9 cm. Bilateral inguinal lymph nodes measured up to 1.3 cm. Also noted were new multiple low density splenic metastatic lesions. She was seen for follow-up visit on 08/03/2016. At that point she had noted a significant decrease in her energy/activity tolerance, and her appetite also had declined. Her ECOG score was still 1. She was not having fever or night sweats. Her weight had dropped 13 pounds since October 2015. As the biopsy was still consistent with low-grade lymphoma, I opted to treat her with bendamustine/Rituxan. She presented for cycle 1 day 1 chemotherapy on 08/05/2016. Her laboratory studies at that time showed her hemoglobin decreased to 9.7 g compared to 12.0 g on a previous study from 07/28/2016. Her creatinine had increased from 1.1 to 1.3 mg/dL and a calcium increased from 10.4 to 13.7 mg/dL. She completed the day 1 bendamustine with no adverse effects, but during the Rituxan infusion she developed tightness in her throat and difficulty breathing. She had a drop in her oxygen saturation. She did recover with additional IV Solu-Medrol and Benadryl. She was not able to complete the full dose of Rituxan. She was hospitalized overnight for IV hydration. She received additional steroid therapy as well as an infusion of sodium pamidronate. She was able to complete her day 2 bendamustine the following day. During subsequent follow-up she developed an enlarging nodule in the left axilla. Ultrasound was consistent with seroma. She also developed a generalized erythematous skin eruption. She was treated with methylprednisolone with gradual resolution of the rash. I had seen her for follow-up on 09/02/2016. At that point she was not showing a significant response to the chemotherapy, and by clinical evaluation, I had suspected transformation of her lymphoma. She was referred to [facility] for further management. She was confirmed there to have transformed diffuse large B-cell lymphoma with involvement in the supraclavicular lymph node and spleen, thus stage III. Her IPI-3 score was 3 based on age, LDH, and stage. She began treatment with R-CHOP chemotherapy, cycle 1 administered on 09/17/2016. Her treatment was complicated by severe neutropenia and anemia. She required transfusion, but she otherwise tolerated it well. She had evidence of complete response after 2 cycles by PET/CT on 10/28/2016. She continued treatment and completed cycle 4 of R-CHOP on 11/18/2016. She became severely pancytopenic following that treatment, requiring hospital admission. She recovered uneventfully. However, by that point she had experienced a significant decline in performance status. She returned to [facility]. As her PET/CT following 2 cycles of chemotherapy had shown complete response, she was then offered the option to stop her treatment and proceed stem cell transplant. She underwent BEAM conditioning followed by autologous stem cell transplant on 01/12/2017. On 01/27/2017 she was able to be discharged to a nearby nursing facility. She was then able to transfer to a local [place] [facility] care facility where she continued to have gradual recovery. She subsequently was able to return home. Restaging CT scans of the chest, abdomen, and pelvis on 04/22/2017 showed resolution of right supraclavicular all whitt lymphadenopathy and of bilateral axillary, mediastinal, and right hilar lymphadenopathy. There was an inferior lingular shaped subpleural soft tissue focus suggestive of focal atelectasis, postinflammatory change, or neoplasm. There was just trace residual left pleural effusion. There was continued decreased mesenteric and retroperitoneal lymphadenopathy and resolution of splenic low attenuation masses. Echocardiogram on 04/28/2017 showed normal left ventricular ejection fraction at 66%. There was no pericardial effusion. She continued on observation/expectant management. Repeat CT scans of the chest, abdomen, and pelvis on 03/27/2018 showed very marginal enlargement of numerous bilateral subcentimeter pulmonary nodules. There was no axillary, hilar, or mediastinal lymphadenopathy noted. There also was no evidence of recurrent lymphadenopathy in the abdomen/pelvis. There was unchanged central mesentery hazy opacity and subcentimeter central mesenteric shotty lymph nodes also appeared stable. Her surveillance CT scans on 06/26/2018 showed slight increase in multilobar, noncalcified pulmonary nodules, the largest measuring 5 mm. As on the prior study these nodules had a very minimal increase in the range of 1 to 2 mm. These were felt to be possibly postinfectious or related to metastatic disease or to lymphoma. There was no adenopathy in the chest, abdomen or pelvis. Central mesenteric misting was stable. There was new mild dilatation of the right renal pelvis and proximal ureter. No stone was identified, and it was felt to be possibly due to mild narrowing of the proximal right ureter or to transient dilatation of the renal pelvis. On 11/24/2018 she presented with complaints of being exhausted and pale. There were no significant changes in her laboratory studies or clinical exam. Restaging CT scans of the chest, abdomen, and pelvis on 12/28/2018 showed stable appearance of left upper and lower lobe subcentimeter noncalcified pulmonary nodules. There was resolution of right middle lobe pneumonia since July 2018. There was no lymphadenopathy or other evidence of disease progression in the abdomen/pelvis. In the absence of any obvious recurrence/progression of her lymphoma, she continued on observation/expectant management. Her medical history is other significant for degenerative arthritis and for nephrolithiasis. She has had no other ongoing medical illnesses. Prior surgeries have been limited to tonsillectomy and removal of some benign skin lesions. She is a nonsmoker. INTERIM HISTORY: She is seen for a follow-up visit. She has been feeling pretty good generally, though she says she still does not have the energy that she used to. She is able to do light work. ECOG score is 1. Her appetite has been good. She has no fever or night sweats. She has not had sore mouth or throat, and she has no difficulty swallowing. She has no shortness of breath, cough, or chest pain. She has no GI complaints other than occasional heartburn, which she has been able to manage adequately by eating [place] cheese. Bladder function has been okay. She has no significant joint or bone pain, but she still gets a lot of muscle cramps at night. She reports that is still difficult for her to get up from a chair. She has also unsteady, and she still has numbness/tingling in her feet. Medications: Acyclovir 1 (400 mg) Tablet Oral b.i.d., C 500 1 Tablet (of 500 mg) Oral b.i.d., Calcium 1 (250 mg) Capsule Oral daily, [facility] Fish Oil 1 (1000 mg) Capsule Oral daily, Multi-Vitamin 1 Tablet Oral daily Allergies: Demerol Vital Signs: Performed on Dec 25, 2020 15:18 Height - 67.00 in Weight - 141 lbs (LOW) BSA - 1.74 sq.m BMI - 22.08 Temperature - 97.6 F (LOW) Pulse - 69 /min Respiration - 18 /min BP - 101/65 mm(hg) O2 Sat - 95 % (LOW) Pain - 0 Fatigue - 5 Physical Examination: Constitutional - She looks good generally, Eyes - Sclerae nonicteric. Conjunctivae clear, ENMT - No lesions noted in the oral cavity, Hematologic/Lymphatic - No cervical, clavicular, or axillary adenopathy, Respiratory - Lungs are clear with good air movement bilaterally, Cardiovascular - Heart rhythm is regular. There is no murmur, gallop, or rub noted, Abdomen - Soft. Liver and spleen are not enlarged. There is no abdominal mass or ascites noted and there is no inguinal adenopathy, Extremities - No edema, Neurologic - No focal neurologic deficits noted. Lab/Imaging: Test performed on Dec 25, 2020 13:18 LDH (Total) 248 U/L Sodium 137 mmol/L Potassium 4.3 mmol/L Chloride 100 mmol/L CO2 28 mmol/L Anion Gap 13.3 BUN 16 mg/dL Creatinine 0.7 mg/dL Cr Clearance (Est) 69.03 mL/min Glucose 100 mg/dL Osmolality - Calculated 285 mOsm/kg Calcium 9.3 mg/dL Protein, Total 6.3 g/dL Albumin 4.2 g/dL Globulin 2.1 g/dL Bilirubin, Total 0.3 mg/dL ALT (SGPT) 15 U/L AST (SGOT) 20 U/L Alkaline Phosphatase 84 IU/L WBC 4.4 10 3/uL RBC 3.64 10 6/uL HGB 11.7 g/dL HCT 35.6 % MCV 97.8 fL MCH 32.1 pg MCHC 32.9 g/dL RDW 13.4 % Platelet Count 160 10 3/cmm MPV 9.4 fL Neutrophils 2.63 10 3/uL Lymphocytes 1.3 10 3/uL Monocytes 0.4 10 3/uL Eosinophils 0.0 10 3/uL Basophils 0.0 10 3/uL Neutrophil % 59.9 % Lymphocyte % 29.2 % Monocyte % 9.3 % Eosinophil % 0.9 % Basophils % 0.5 % NRBC % 0 % Problem List: 1. Patient with transformed diffuse large B cell lymphoma, stage III, IPI score 3. The diagnosis was confirmed by needle biopsy of right supraclavicular mass on 09/08/2016. 2. She has a history of low-grade non-Hodgkin's lymphoma, stage CIELO at initial diagnosis in 1999. 3. Nephrolithiasis. 4. Degenerative arthritis. Problems Addressed with this Encounter and Plan: 1. Patient with transformed diffuse large B cell lymphoma, stage III, IPI score 3. The diagnosis was confirmed by needle biopsy of right supraclavicular mass on 09/08/2016. She began a course of R-CHOP chemotherapy on 09/17/2016. She appeared to have complete response after 2 cycles of treatment. She continued her chemotherapy and she received her 4th cycle on 11/18/2016. That treatment was complicated by severe pancytopenia, requiring hospital admission. She then underwent stem cell transplant with BEAM conditioning on 01/12/2017. Following the transplant procedure she had very marginal performance status and she had developed significant elevation of liver enzymes, predominantly alkaline phosphatase. During follow-up she had gradual improvement in her clinical status and her liver enzymes eventually normalized. At this point she continues to have some fatigue and she also has some residual neuropathy symptoms, but thus far there has been no evidence of any further recurrence of her lymphoma. She continues on expectant management. I will see her again in 6 months. 2. She has a history of low-grade non-Hodgkin's lymphoma, stage CIELO at initial diagnosis in 1999. She had a good response to a course of treatment with CVP chemotherapy, which she completed in January 2000. She had subsequently been followed on observation/expectant management. She initially had evidence of recurrence in July 2016. A left axillary lymph node biopsy was still consistent with low-grade lymphoma, and she had started treatment with bendamustine/Rituxan, cycle 1 day 1 on 08/05/2016. Her treatment was subsequently changed when she was confirmed to have transformation to diffuse large B-cell lymphoma. Thus far during follow-up there has been no evidence for recurrence of the low-grade lymphoma, but she is still at risk. Signed By: Ehsan Noel M.D. <<Signature on File>>
== END 2020-12-25 13:03 | disposition home or self-care (01) ==
LOC: ONCMED 13:09
PROVIDERS: PCP Family Medicine; Visit Provider Internal Medicine Medical Oncology
DX: Z08 Encounter for follow-up examination after completed treatment for malignant neoplasm (principal); Z85.72 Personal history of non-Hodgkin lymphomas; N20.0 Calculus of kidney; M19.90 Unspecified osteoarthritis, unspecified site; Z79.899 Other long term (current) drug therapy; Z92.21 Personal history of antineoplastic chemotherapy
CPT/HCPCS: 80053; 83615; 85025; 99214

== ENCOUNTER 2021-03-04 08:17 | Emergency (ER) | payer MEDICARE, OTHER, SELFPAY ==
[2021-03-04 08:28] VITALS: BP 159/93; PULSE 76; RESP 18; O2SAT 100; BMI 22.6
--- NOTE | 2021-03-04 08:32 | XR_ITS ---
WS: [id number] Exam: XR chest 1V portable [id number] Date/Time of Exam: 03/04/2021 8:35 AM Reason For Exam: dyspnea/cough Comparison 12/07/2018. The lungs are hyperinflated and clear. Chronic interstitial changes in the lower lung zones. Normal c ardiomediastinal silhouette. No pleural effusions. Regional bony elements are intact. XR/XR chest 1V portable [id number] IMPRESSION: 1. No acute cardiopulmonary finding. 2. Pulmonary hyperinflation which might indicate obstructive lung disease.
--- NOTE | 2021-03-04 08:32 | ECG_ITS ---
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
--- NOTE | 2021-03-04 08:34 | W.ED.CHESTPA ---
HPI - Chest Pain General: Chief Complaint: Chest Pain Stated Complaint: THINKS HAS HAD A HEART ATTACK Time Seen by Provider: 03/04/21 08:19 History of Present Illness: HPI narrative: 75-year-old female presents emergency room with complaint of chest discomfort. She became quite anxious and nervous after an interaction with the tablet for a property she owns. She not previously had a known history of heart disease she did have lymphoma and had a bone marrow transplant. She is not diabetic or hypertensive. There is no radiation of pain to the neck or arm she was a little bit short of breath she is completely resolved with a chest pain now without any intervention she had not noted anything that worsened or relieved it other than time. She does not but have a any similar episodes recently. MD complaint: chest discomfort Onset (ago): minute(s) Timing of current episode: episodic Onset: during rest Pain location: left chest Pain radiation: none Quality: heaviness Relieving factors: nothing Exacerbating factors: nothing Associated symptoms: Reports palpitations and sense of impending doom; Deny abdominal pain, diaphoresis, dyspnea, fever(s), leg edema, nausea, syncope or vomiting Treatment prior to arrival: none Review of Systems Const: Denies: fever(s) or diaphoresis ENMT: Denies: throat pain, ear or mastoid pain, nasal discharge or nasal congestion Card: Reports: palpitations; Denies: syncope Resp: Denies: dyspnea GI: Denies: abdominal pain, nausea or vomiting : Denies: flank pain, difficulty voiding, dysuria, urinary frequency or urinary urgency Skin/Breast: Denies: rash or pruritus [facility] PFSH: Medical History (Updated 03/04/21 @ 12:05 by Mega Bhandari DO) Lymphoma Port-A-Cath in place Family History Denies family history of Anesthesia complication Bleeding disorder Social History Smoking and tobacco status: never smoked Physical Exam Const: COMMON NORMALS: no acute distress GENERAL APPEARANCE: cooperative and comfortable ORIENTATION/CONSCIOUSNESS: Yes awake, Yes oriented to person, Yes oriented to place and Yes oriented to time HENMT: COMMON NORMALS: normocephalic, atraumatic and hearing grossly normal bilaterally HEAD & SCALP: normocephalic and atraumatic Neck/C-Spine: COMMON NORMALS: no JVD Resp: COMMON NORMALS: normal respiratory effort, No retractions, No use of accessory muscles and clear to auscultation bilaterally AUSCULTATION: clear to auscultation bilaterally Cardio: COMMON NORMALS: no JVD, regular rate, regular rhythm and No murmurs present (Cardio) RATE: regular rate RHYTHM: regular rhythm GI: COMMON NORMALS: Soft to palpation and No hepatosplenomegaly present AUSCULTATION: Yes normoactive bowel sounds PALPATION: Yes Soft to palpation, No Tenderness to palpation present (GI), No Guarding due to palpation present (GI) and Yes No hepatosplenomegaly present Extremity: COMMON NORMALS: normal to inspection, capillary refill normal, no clubbing, cyanosis or edema, no calf tenderness and no pedal edema Neuro: SENSORIUM/ORIENTATION: Yes oriented to person, Yes oriented to place and Yes oriented to time Skin: COMMON NORMALS: no rashes or lesions noted GENERAL SKIN EXAM: no rashes or lesions noted Course Vital Signs: Vital signs: Vital Signs Pulse Rate 65 03/04/21 10:50 Respiratory Rate 16 03/04/21 10:50 Blood Pressure 135/73 03/04/21 10:50 Pulse Oximetry 100 03/04/21 10:50 MDM - Chest Pain MDM Narrative: Medical decision making narrative: Reviewed EKG and labs on the chart discussed the patient will discharge patient home and make arrangements for outpatient Lexiscan sestamibi stress test. Lab Data: Labs: Lab Results 03/04/21 03/04/21 03/04/21 Range/Units 08:50 08:50 08:50 WBC 4.6 (4.0-10.0) 10^3/ uL RBC 3.67 L (4.1-5.3) 10^6/u L Hgb 11.6 (11.5-15.3) g/dL Hct 36.5 L (37.0-47.0) % MCV 99.5 H (81-99) fl MCH 31.6 (28.0-34.0) pg MCHC 31.8 (30.0-36.0) g/dL RDW 13.9 (12.1-15.1) % Plt Count 177 (130-400) 10^3/c mm MPV 9.0 (7.4-10.4) fL Neut % (Auto) 55.8 % Lymph % (Auto) 30.0 % Slope % (Auto) 9.9 % Eos % (Auto) 3.7 % Baso % (Auto) 0.2 % Neut # (Auto) 2.59 (1.8-7.7) 10^3/u L Lymph # (Auto) 1.4 (0.8-4.8) 10^3/u L Slope # (Auto) 0.5 (0.2-0.9) 10^3/u L Eos # (Auto) 0.2 (0.0-0.8) 10^3/u L Baso # (Auto) 0.0 (0.0-0.1) 10^3/u L Nucleated RBC % (a uto) 0 % Nucleated RBCs # 0.0 /100WBC Sodium 141 (136-145) mmol/L Potassium 3.9 (3.5-5.1) mmol/L Chloride 105 (98-107) mmol/L Carbon Dioxide 27 (22-29) mmol/L Anion Gap 12.9 (5-19) BUN 16 (8-23) mg/dL Creatinine 0.5 (0.5-0.9) mg/dL GFR Calculation Not Reportable Glucose 91 (65-115) mg/dL Calculated Osmolal ity 293 (285-295) mOsm/k g Calcium 8.7 (8.5-10.5) mg/dL Total Bilirubin 0.3 (0.15-1.2) mg/dL AST 14 (0-32) U/L ALT 13 (0-33) U/L Alkaline Phosphata se 78 (35-105) IU/L Troponin T Baselin e 17 H (0-10) ng/L Troponin T 120 Min mentasta (0-10) ng/L Delta Troponin T (0-10) ABS# Total Protein 5.7 L (6.6-8.7) g/dL Albumin 4.2 (3.5-5.2) g/dL Globulin 1.5 (1.3-4.6) g/dL Urine Color (Yellow) Urine Appearance (CLEAR) Urine pH (5-7) Ur Specific Gravit y (1.005-1.030) Urine Protein (Negative) Urine Glucose (UA) (Normal) Urine Ketones (Negative) Urine Blood (Negative) Urine Nitrate (Negative) Urine Bilirubin (Negative) Urine Urobilinogen (Negative) mg/dL Ur Leukocyte Arleth ase (Negative) 03/04/21 03/04/21 Range/Units 09:09 10:53 WBC (4.0-10.0) 10^3/ uL RBC (4.1-5.3) 10^6/u L Hgb (11.5-15.3) g/dL Hct (37.0-47.0) % MCV (81-99) fl MCH (28.0-34.0) pg MCHC (30.0-36.0) g/dL RDW (12.1-15.1) % Plt Count (130-400) 10^3/c mm MPV (7.4-10.4) fL Neut % (Auto) % Lymph % (Auto) % Slope % (Auto) % Eos % (Auto) % Baso % (Auto) % Neut # (Auto) (1.8-7.7) 10^3/u L Lymph # (Auto) (0.8-4.8) 10^3/u L Slope # (Auto) (0.2-0.9) 10^3/u L Eos # (Auto) (0.0-0.8) 10^3/u L Baso # (Auto) (0.0-0.1) 10^3/u L Nucleated RBC % (a uto) % Nucleated RBCs # /100WBC Sodium (136-145) mmol/L Potassium (3.5-5.1) mmol/L Chloride (98-107) mmol/L Carbon Dioxide (22-29) mmol/L Anion Gap (5-19) BUN (8-23) mg/dL Creatinine (0.5-0.9) mg/dL GFR Calculation Glucose (65-115) mg/dL Calculated Osmolal ity (285-295) mOsm/k g Calcium (8.5-10.5) mg/dL Total Bilirubin (0.15-1.2) mg/dL AST (0-32) U/L ALT (0-33) U/L Alkaline Phosphata se (35-105) IU/L Troponin T Baselin e (0-10) ng/L Troponin T 120 Min mentasta 15.38 H (0-10) ng/L Delta Troponin T -1.62 L (0-10) ABS# Total Protein (6.6-8.7) g/dL Albumin (3.5-5.2) g/dL Globulin (1.3-4.6) g/dL Urine Color Yellow (Yellow) Urine Appearance Clear (CLEAR) Urine pH 6.5 (5-7) Ur Specific Gravit y 1.005 (1.005-1.030) Urine Protein Neg (Negative) Urine Glucose (UA) Norm (Normal) Urine Ketones Negative (Negative) Urine Blood Neg (Negative) Urine Nitrate Negative (Negative) Urine Bilirubin Neg (Negative) Urine Urobilinogen Norm (Negative) mg/dL Ur Leukocyte Arleth ase Negative (Negative) Discharge Plan Discharge Patient Disposition: Home Clinical Impression: Atypical chest pain Condition: Stable Prescriptions: New aspirin 81 mg tablet,delayed release (DR/EC) 81 mg PO DAILY Qty: 30 RF: 0 No Action acyclovir 400 mg Tablet 400 mg PO BID RF: 0 multivitamin Tablet 2 tab PO TID RF: 0 Calcium + D 600 mg(1,500mg) -200 unit Tablet 2 tab PO TID RF: 0 Vitamin C 500 mg Tablet 1,000 mg PO TID RF: 0 Fish Oil Capsule 2,000 mg PO TID RF: 0 Vitamin D3 125 mcg (5,000 unit) Tablet 125 mcg PO DAILY RF: 0 Vitamin With Lots Of Herbs 2 tab PO TID RF: 0 vitamin E 1 cap PO DAILY RF: 0 Discharge Orders: Discharge ED (Routine); Ordered 03/04/21 Ordered By: Mega Bhandari Referrals: Jaycee Reed MD [Primary Care Provider] - Discharge Diet: Usual diet Discharge Activity: Increase activity as tolerated Patient Instructions: Opioid Safety Activity Restrictions/Additional Instructions: Management will call to make arrangements for you to have a Lexiscan sestamibi stress test. 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
[2021-03-04 08:48] VITALS: BP 165/83; PULSE 71; RESP 16; O2SAT 99
[2021-03-04 09:00] LABS: Basophils % 0.2 %; Eosinophils # 0.2 10^3/uL (0.0-0.8); Eosinophils % 3.7 %; Hematocrit 36.5 % (37.0-47.0); Hemoglobin 11.6 g/dL (11.5-15.3); Lymphocytes # 1.4 10^3/uL (0.8-4.8); Mean Corpuscular HGB Conc 31.8 g/dL (30.0-36.0); Mean Corpuscular Hemoglobin 31.6 pg (28.0-34.0); Mean Corpuscular Volume 99.5 fl (81-99); Monocytes # 0.5 10^3/uL (0.2-0.9); Monocytes % 9.9 %; Neutrophils # 2.59 10^3/uL (1.8-7.7); Neutrophils % 55.8 %; Nucleated Red Blood Cells % 0 %; Platelet Count 177 10^3/cmm (130-400); Red Blood Count 3.67 10^6/uL (4.1-5.3); Red Cell Distribution Width 13.9 % (12.1-15.1); White Blood Count 4.6 10^3/uL (4.0-10.0)
[2021-03-04 09:20] LABS: Troponin(5th) Baseline 17 ng/L (0-10)
[2021-03-04 09:22] LABS: Add Urine Microscopic? NO; Charge for UA Resulting for Rev
[2021-03-04 09:24] LABS: Alanine Aminotransferase 13 U/L (0-33); Albumin Level 4.2 g/dL (3.5-5.2); Alkaline Phosphatase 78 IU/L (35-105); Anion Gap 12.9 (5-19); Aspartate Amino Transferase 14 U/L (0-32); Carbon Dioxide 27 mmol/L (22-29); Chloride 105 mmol/L (98-107); Creatinine Clr Calc Pharmacy 57.5934; Globulin 1.5 g/dL (1.3-4.6); Glucose 91 mg/dL (65-115); Potassium 3.9 mmol/L (3.5-5.1); Sodium 141 mmol/L (136-145); Total Bilirubin 0.3 mg/dL (0.15-1.2); Total Protein 5.7 g/dL (6.6-8.7)
[2021-03-04 09:25] LABS: Bilirubin Urine Neg (Negative); Blood Urine Neg (Negative); Glucose Urine UA Norm (Normal); Ketones Urine Negative (Negative); Leukocyte Esterase Urine Negative (Negative); Nitrate Urine Negative (Negative); Protein Urine Neg (Negative); Specific Gravity, Urine 1.005 (1.005-1.030); Urine Appearance Clear (CLEAR); Urine Color Yellow (Yellow); Urobilinogen Urine Norm (Negative); pH Urine 6.5 (5-7)
[2021-03-04 09:29] LABS: Blood Urea Nitrogen 16 mg/dL (8-23); Calcium 8.7 mg/dL (8.5-10.5); Osmolality Calculated 293 mOsm/kg (285-295)
--- NOTE | 2021-03-04 09:56 | PC.PHAR ---
pt states she takes care of her own medications-pt states she takes no rx medications except for the acyclovir 400mg bid-pt states she takes lots of otc medications-pt states a from [facility] makes her a vitamin states it has lots of herbs and other things she is unsure of the names
[2021-03-04 10:50] VITALS: BP 135/73; PULSE 65; RESP 16; O2SAT 100
[2021-03-04 11:25] LABS: Troponin 5 2HR 15.38 ng/L (0-10)
[2021-03-04 11:31] LABS: Troponin 5 2HR Delta -1.62 ABS# (0-10)
--- NOTE | 2021-03-04 13:35 | DCPLANNER ---
intake manager had message to schedule an outpatient stress test for patient. intake manager faxed signed order to centralized scheduling, who will patient with appointment information.
--- NOTE | 2021-03-04 14:32 | ECG_ITS ---
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
--- NOTE | 2021-03-05 10:58 | DCPLANNER ---
Patient has an outpatient stress test scheduled for Saturday March 20, 2021 at 10:00.
--- NOTE | 2021-03-25 14:53 | DCPLANNER ---
Patient had a follow up appointment scheduled for 03.20.21 for an outpatient stress test - patient did attend appointment.
== END 2021-03-04 12:18 | disposition home or self-care (01) ==
PROVIDERS: Emergency Provider Family Medicine; PCP Family Medicine
DX: R07.89 Other chest pain (principal)
CPT/HCPCS: 71045; 80053; 81003; 84484; 85025; 93005; 99283

== ENCOUNTER 2021-03-20 07:14 | Outpatient (CLI) | payer MEDICARE, OTHER, SELFPAY ==
--- NOTE | 2021-03-20 07:45 | NMCV_ITS ---
NM ander perf SPECT r/s* [id number] Ira Frost Age: 75 Gender: F : 1945 Exam Date: 03/20/2021 08:25 Ordering Phys: Mega Bhandari DO Technologist: SANDRO Mann Exam Location: [facility] Indications: CHEST PAIN STRESS TEST Please see separate stress test report in [facility] for full findings IMAGE PROTOCOL Rest/Stress 1 Lexiscan Day Radiopharmaceutical Dose (mCi) Administration Site Administered by Rest: Tc-99m 10.7 IV SANDRO Sotelo Sestamibi Stress:Tc-99m 32.0 IV SANDRO Sotelo Sestamibi Rest: 20-Mar-2021 60 Discovery 630 Stress: 20-Mar-2021 30 Discovery 630 0.4mg Lexiscan. Images obtained in supine and prone position. SPECT RESULTS Technical Quality: Excellent Raw Data Analysis: Normal Image Corrections: No attenuation or motion correction applied Summed Stress Score: 0 Summed Rest Score: 0 Summed Difference Score: 0 PERFUSION FINDINGS SPECT images demonstrate homogeneous tracer distribution throughout the myocardium. FUNCTIONAL RESULTS (calculated via Gated SPECT) Stress Image LV EF (%): 75 Stress EDV (mL):59 TID: 0.74 Stress ESV (mL):15 FUNCTIONAL FINDINGS: The left ventricle is normal in size. Transient Ischemia Dilatation of 0.74. There is normal left ventricular systolic function. The left ventricular ejection fraction is normal with a value of 75%. There is normal left ventricular wall thickening with no regional wall motion normality. Normal end-diastolic end-systolic volumes. IMPRESSIONS 1. Myocardial perfusion imaging is normal. 2. Overall left ventricular systolic function is normal without regional wall motion abnormalities. 3. The left ventricular ejection fraction is normal with a value of 75%. 4. No significant EKG changes with Lexiscan stress. Refer to separate report for details. 5. Scan indicates low risk for cardiac events. Krystal Carey MD (Electronically Signed) Final Date: 20 March 2021 13:09 S
--- NOTE | 2021-03-20 07:45 | ECG_ITS ---
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 Interpretive Statements NAME OF STUDY: LEXISCAN SESTAMIBI STRESS TEST INDICATION: Chest Pain PROCEDURE: At the baseline, the blood pressure was 135/66 mmHg with a heart rate of 50 bpm. The electrocardiogram showed sinus bradycardia, normal axis. The Lexiscan was infused over a period of 20 seconds. A total of 0.4 milligrams of Lexiscan was infused. The stress phase was continued for a total of 5 minutes. Heart rate at the end of the stress phase was 87 bpm with a blood pressure of 134/68 mmHg. The EKG at the peak infusion revealed sinus rhythm with no significant ST-T wave changes. Sestamibi was injected 20 seconds after the Lexiscan infusion. Blood pressure at the end of the recovery phase was 133/71 mmHg with a heart rate of 86 beats per minute. CONCLUSION: 1. Normal EKG response to LexiScan infusion. 2. No LexiScan induced chest pain or cardiac arrhythmia. 3. Normal blood pressure and heart rate response. 4. Sestamibi/sestamibi perfusion scan pending; see separate report. Electronically Signed On 03-20-2021 13:05:32 CDT by Krystal Carey M.D. [id number]
[2021-03-20 07:48] VITALS: BMI 22.4
[2021-03-20 09:17] VITALS: BP 126/81; PULSE 88
[2021-03-20] MEDS: regadenoson 0.4 Mg/5 ml Syringe IVP (09:19)
== END 2021-03-20 07:15 | disposition home or self-care (01) ==
PROVIDERS: PCP Family Medicine; Visit Provider Family Medicine
DX: R07.9 Chest pain, unspecified (principal)
CPT/HCPCS: 78452; 93017; A9500; J2785

== ENCOUNTER 2021-06-25 13:03 | Outpatient (CLI) | payer MEDICARE, OTHER, SELFPAY ==
[2021-06-25 13:39] LABS: Basophils % 0.4 %; Eosinophils # 0.1 10^3/uL (0.0-0.8); Eosinophils % 1.1 %; Hematocrit 36.6 % (37.0-47.0); Hemoglobin 12.1 g/dL (11.5-15.3); Lymphocytes # 1.5 10^3/uL (0.8-4.8); Lymphocytes % 26.6 %; Mean Corpuscular HGB Conc 33.1 g/dL (30.0-36.0); Mean Corpuscular Hemoglobin 32.7 pg (28.0-34.0); Mean Corpuscular Volume 98.9 fl (81-99); Monocytes # 0.4 10^3/uL (0.2-0.9); Monocytes % 7.6 %; Neutrophils # 3.56 10^3/uL (1.8-7.7); Neutrophils % 63.9 %; Nucleated Red Blood Cells % 0 %; Platelet Count 174 10^3/cmm (130-400); White Blood Count 5.6 10^3/uL (4.0-10.0)
[2021-06-25 13:58] LABS: Alanine Aminotransferase 15 U/L (0-33); Albumin Level 4.4 g/dL (3.5-5.2); Alkaline Phosphatase 70 IU/L (35-105); Anion Gap 19.3 (5-19); Aspartate Amino Transferase 18 U/L (0-32); Blood Urea Nitrogen 17 mg/dL (8-23); Calcium 8.9 mg/dL (8.5-10.5); Carbon Dioxide 24 mmol/L (22-29); Chloride 101 mmol/L (98-107); Globulin 1.7 g/dL (1.3-4.6); Glucose 108 mg/dL (65-115); Lactate Dehydrogenase 209 U/L (135-214); Osmolality Calculated 292 mOsm/kg (285-295); Potassium 4.3 mmol/L (3.5-5.1); Sodium 140 mmol/L (136-145); Total Bilirubin 0.2 mg/dL (0.15-1.2); Total Protein 6.1 g/dL (6.6-8.7)
--- NOTE | 2021-06-28 14:21 | ONC FU_ITS ---
Dr. Noel Patient Follow-Up Note Patient: Ira Frost Unit #: [id number]: 1945 Dicatated By: Ehsan Noel M.D.Date of Visit:Jun 25, 2021 Onc Med Follow-up/Prog Note Chief Complaint: Lymphoma. History of Present Illness: This is a 75 year-old woman with transformed diffuse large B-cell lymphoma. She was initially diagnosed with low-grade B cell lymphoma in August of 1999 when she presented with a chylous pleural effusion. There was also extensive retroperitoneal adenopathy. By CT scan it measured 7.5 x 5 cm and extended for a vertical length of 17-18 cm, from the level of the celiac axis to a level 4-5 cm below the bifurcation of the aorta. There was some associated hydronephrosis. The diagnosis was confirmed by right inguinal lymph node biopsy which showed grade I follicular lymphoma. She had an excellent response to treatment with 6 cycles of CVP chemotherapy, which she completed in January of 2000. She developed significant lower extremity pain following her chemotherapy. 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 Over time, it gradually resolved. She had no further treatment for the lymphoma. She was seen in March 2012 with new onset of lower extremity edema. A specific cause for that was never determined. There was no evidence of deep vein thrombosis by venous Doppler. CT scans did show some mesenteric and retroperitoneal adenopathy, but the largest lymph nodes measured only up to 1.5 cm, and they were FDG negative by PET. It was, nonetheless, felt to be suspicious for low-grade non-Hodgkin's lymphoma. There was also some mediastinal adenopathy, which appeared to be more likely reactive. Her swelling subsequently resolved and she had no further problems with the exception of an acute illness in June 2012 when she developed dizziness and vomiting. Evaluation in the emergency room was unrevealing. Her symptoms subsequently resolved, so this was most likely a viral syndrome. She remained on observation/expectant management. As of October 2015, her follow-up CT scan had shown some increase in the adenopathy, but with the largest node still relatively small at 2.24 cm, and she continued on observation. On 07/20/2016 she presented to the emergency room with an enlarging mass in the right side of the neck. She had been aware of it for a while, but she she had only recently made us aware of it. She was seen by Dr. Michaud as an outpatient and she underwent left axillary lymph node biopsy and placement of Port-A-Cath venous access device on 07/22/2016. The procedure was complicated by pneumothorax, requiring chest tube placement and hospitalization. Pathology on the lymph node biopsy was consistent with low-grade follicular lymphoma (grade 1-2/3). Restaging CT scans of the chest, abdomen, and pelvis on 07/28/2016 showed bulky right supraclavicular adenopathy. It measured 8.6 x 7.3 cm, but it was incompletely included on that study. A left subclavicular lymph node measured 1.1 cm. A postoperative fluid collection the left axilla measured 2.8 cm. There was additional smaller bilateral axillary adenopathy, largest measuring 1.7 x 1.3 cm. A precarinal mediastinal lymph node measured 1.4 x 1 cm, and a right hilar lymph node measured 1.9 x 1.2 cm. The abdomen/pelvis showed a generalized increase in the bulk of mesenteric and retroperitoneal lymphadenopathy with the entire process measuring about 11.2 cm in length and 4.8 cm in depth and extending over a vertical height of 13.9 cm. Bilateral inguinal lymph nodes measured up to 1.3 cm. Also noted were new multiple low density splenic metastatic lesions. She was seen for follow-up visit on 08/03/2016. At that point she had noted a significant decrease in her energy/activity tolerance, and her appetite also had declined. Her ECOG score was still 1. She was not having fever or night sweats. Her weight had dropped 13 pounds since October 2015. As the biopsy was still consistent with low-grade lymphoma, I opted to treat her with bendamustine/Rituxan. She presented for cycle 1 day 1 chemotherapy on 08/05/2016. Her laboratory studies at that time showed her hemoglobin decreased to 9.7 g compared to 12.0 g on a previous study from 07/28/2016. Her creatinine had increased from 1.1 to 1.3 mg/dL and a calcium increased from 10.4 to 13.7 mg/dL. She completed the day 1 bendamustine with no adverse effects, but during the Rituxan infusion she developed tightness in her throat and difficulty breathing. She had a drop in her oxygen saturation. She did recover with additional IV Solu-Medrol and Benadryl. She was not able to complete the full dose of Rituxan. She was hospitalized overnight for IV hydration. She received additional steroid therapy as well as an infusion of sodium pamidronate. She was able to complete her day 2 bendamustine the following day. During subsequent follow-up she developed an enlarging nodule in the left axilla. Ultrasound was consistent with seroma. She also developed a generalized erythematous skin eruption. She was treated with methylprednisolone with gradual resolution of the rash. I had seen her for follow-up on 09/02/2016. At that point she was not showing a significant response to the chemotherapy, and by clinical evaluation, I had suspected transformation of her lymphoma. She was referred to [facility] for further management. She was confirmed there to have transformed diffuse large B-cell lymphoma with involvement in the supraclavicular lymph node and spleen, thus stage III. Her IPI-3 score was 3 based on age, LDH, and stage. She began treatment with R-CHOP chemotherapy, cycle 1 administered on 09/17/2016. Her treatment was complicated by severe neutropenia and anemia. She required transfusion, but she otherwise tolerated it well. She had evidence of complete response after 2 cycles by PET/CT on 10/28/2016. She continued treatment and completed cycle 4 of R-CHOP on 11/18/2016. She became severely pancytopenic following that treatment, requiring hospital admission. She recovered uneventfully. However, by that point she had experienced a significant decline in performance status. She returned to [facility]. As her PET/CT following 2 cycles of chemotherapy had shown complete response, she was then offered the option to stop her treatment and proceed stem cell transplant. She underwent BEAM conditioning followed by autologous stem cell transplant on 01/12/2017. On 01/27/2017 she was able to be discharged to a nearby nursing facility. She was then able to transfer to a local [facility] where she continued to have gradual recovery. She subsequently was able to return home. Restaging CT scans of the chest, abdomen, and pelvis on 04/22/2017 showed resolution of right supraclavicular all whitt lymphadenopathy and of bilateral axillary, mediastinal, and right hilar lymphadenopathy. There was an inferior lingular shaped subpleural soft tissue focus suggestive of focal atelectasis, postinflammatory change, or neoplasm. There was just trace residual left pleural effusion. There was continued decreased mesenteric and retroperitoneal lymphadenopathy and resolution of splenic low attenuation masses. Echocardiogram on 04/28/2017 showed normal left ventricular ejection fraction at 66%. There was no pericardial effusion. She continued on observation/expectant management. Repeat CT scans of the chest, abdomen, and pelvis on 03/27/2018 showed very marginal enlargement of numerous bilateral subcentimeter pulmonary nodules. There was no axillary, hilar, or mediastinal lymphadenopathy noted. There also was no evidence of recurrent lymphadenopathy in the abdomen/pelvis. There was unchanged central mesentery hazy opacity and subcentimeter central mesenteric shotty lymph nodes also appeared stable. Her surveillance CT scans on 06/26/2018 showed slight increase in multilobar, noncalcified pulmonary nodules, the largest measuring 5 mm. As on the prior study these nodules had a very minimal increase in the range of 1 to 2 mm. These were felt to be possibly postinfectious or related to metastatic disease or to lymphoma. There was no adenopathy in the chest, abdomen or pelvis. Central mesenteric misting was stable. There was new mild dilatation of the right renal pelvis and proximal ureter. No stone was identified, and it was felt to be possibly due to mild narrowing of the proximal right ureter or to transient dilatation of the renal pelvis. On 11/24/2018 she presented with complaints of being exhausted and pale. There were no significant changes in her laboratory studies or clinical exam. Restaging CT scans of the chest, abdomen, and pelvis on 12/28/2018 showed stable appearance of left upper and lower lobe subcentimeter noncalcified pulmonary nodules. There was resolution of right middle lobe pneumonia since July 2018. There was no lymphadenopathy or other evidence of disease progression in the abdomen/pelvis. In the absence of any obvious recurrence/progression of her lymphoma, she continued on observation/expectant management. Her medical history is other significant for degenerative arthritis and for nephrolithiasis. She has had no other ongoing medical illnesses. Prior surgeries have been limited to tonsillectomy and removal of some benign skin lesions. She is a nonsmoker. INTERIM HISTORY: She is seen for a follow-up visit. She has been feeling pretty good generally. She has noticed that her energy has been gradually slowing down. She is still doing light work. ECOG score is 1. She has good appetite. She has no fever or night sweats. She had an ER visit for chest pain back in March. It appeared to have been stress related. She had a negative sestamibi stress test. She has not had sore mouth or throat. She does not complain of cough or shortness of breath. She has had no further chest pain. She has no GI or complaints. She has no significant joint or bone pain. She does not complain of headache or dizziness, and at this point she has no residual neuropathy. Medications: Acyclovir 1 (400 mg) Tablet Oral b.i.d., C 500 1 Tablet (of 500 mg) Oral b.i.d., Calcium 1 (250 mg) Capsule Oral daily, [facility] Fish Oil 1 (1000 mg) Capsule Oral daily, Multi-Vitamin 1 Tablet Oral daily Allergies: Demerol Vital Signs: Performed on Jun 25, 2021 14:38 Height - 67.00 in Weight - 143.0 lbs (HIGH) BSA - 1.75 sq.m BMI - 22.40 Temperature - 97.5 F (LOW) Pulse - 79 /min Respiration - 16 /min BP - 124/76 mm(hg) O2 Sat - 96 % Pain - 0 Fatigue - 0 Physical Examination: Constitutional - She looks pretty good generally, Eyes - Sclerae nonicteric. Conjunctivae clear, ENMT - No lesions noted in the oral cavity, Hematologic/Lymphatic - No cervical, clavicular, or axillary adenopathy, Respiratory - Lungs are clear with good air movement bilaterally, Cardiovascular - Heart rhythm is regular. There is no murmur, gallop, or rub noted, Abdomen - Soft. Liver and spleen are not enlarged. There is no abdominal mass or ascites noted and there is no inguinal adenopathy, Extremities - No edema, Neurologic - No focal neurologic deficits noted. Lab/Imaging: Test performed on Jun 25, 2021 13:20 LDH (Total) 209 U/L Sodium 140 mmol/L Potassium 4.3 mmol/L Chloride 101 mmol/L CO2 24 mmol/L Anion Gap 19.3 BUN 17 mg/dL Creatinine 0.6 mg/dL Cr Clearance (Est) 81.68 mL/min Glucose 108 mg/dL Osmolality - Calculated 292 mOsm/kg Calcium 8.9 mg/dL Protein, Total 6.1 g/dL Albumin 4.4 g/dL Globulin 1.7 g/dL Bilirubin, Total 0.2 mg/dL ALT (SGPT) 15 U/L AST (SGOT) 18 U/L Alkaline Phosphatase 70 IU/L WBC 5.6 10 3/uL RBC 3.70 10 6/uL HGB 12.1 g/dL HCT 36.6 % MCV 98.9 fl MCH 32.7 pg MCHC 33.1 g/dL RDW 14.0 % Platelet Count 174 10 3/cmm MPV 9.0 fL Neutrophils 3.56 10 3/uL Lymphocytes 1.5 10 3/uL Monocytes 0.4 10 3/uL Eosinophils 0.1 10 3/uL Basophils 0.0 10 3/uL Neutrophil % 63.9 % Lymphocyte % 26.6 % Monocyte % 7.6 % Eosinophil % 1.1 % Basophils % 0.4 % NRBC % 0 % Problem List: 1. Patient with transformed diffuse large B cell lymphoma, stage III, IPI score 3. The diagnosis was confirmed by needle biopsy of right supraclavicular mass on 09/08/2016. 2. She has a history of low-grade non-Hodgkin's lymphoma, stage CIELO at initial diagnosis in 1999. 3. Nephrolithiasis. 4. Degenerative arthritis. Problems Addressed with this Encounter and Plan: Patient with low-grade non-Hodgkin's lymphoma, stage CIELO at initial diagnosis in 1999. She had a good response to a course of treatment with CVP chemotherapy, which she completed in January 2000. She had subsequently been followed on observation/expectant management. She had subsequent transformation to diffuse large B cell lymphoma, stage III, IPI score 3. The diagnosis was confirmed by needle biopsy of a right supraclavicular mass on 09/08/2016. She began a course of R-CHOP chemotherapy on 09/17/2016. She appeared to have complete response after 2 cycles of treatment. She continued her chemotherapy and she received her 4th cycle on 11/18/2016. That treatment was complicated by severe pancytopenia, requiring hospital admission. She then underwent stem cell transplant with BEAM conditioning on 01/12/2017. Following the transplant procedure she had very marginal performance status and she had developed significant elevation of liver enzymes, predominantly alkaline phosphatase, but her liver enzymes eventually normalized and her performance status gradually improved. During follow-up she has continued to have some fatigue, and over the past year there has been some decline in her activity tolerance. Overall, though, she is doing well clinically. Thus far there has been no evidence of any further recurrence of the lymphoma. She remains on observation/expectant management. I will see her again in 6 months. Signed By: Ehsan Noel M.D. <<Signature on File>>
== END 2021-06-25 13:04 | disposition home or self-care (01) ==
LOC: ONCMED 13:06
PROVIDERS: PCP Family Medicine; Visit Provider Internal Medicine Medical Oncology
DX: Z08 Encounter for follow-up examination after completed treatment for malignant neoplasm (principal); Z85.72 Personal history of non-Hodgkin lymphomas; Z85.79 Personal history of other malignant neoplasms of lymphoid, hematopoietic and related tissues; N20.0 Calculus of kidney; M19.90 Unspecified osteoarthritis, unspecified site; Z95.828 Presence of other vascular implants and grafts
CPT/HCPCS: 36415; 80053; 83615; 85025; 99214

== ENCOUNTER 2021-10-18 11:06 | Emergency (ER) | payer MEDICARE, OTHER, SELFPAY ==
[2021-10-18 11:17] VITALS: BP 114/74; PULSE 75; RESP 16; TEMP 37; O2SAT 96; BMI 22.6
--- NOTE | 2021-10-18 11:31 | ED_ITS ---
HPI - General Adult General: Chief complaint: General Medical Stated complaint: Weakness, diff breathing Time Seen by Provider: 10/18/21 11:26 Source: patient Mode of arrival: ambulatory Limitations: no limitations History of Present Illness: Patient is a 76-year-old female presents to ED today with a complaint of diarrhea and fevers as high as 99.0. She states symptoms started yesterday. She states she is only here because all other offices are closed and she wants a test for the Fela's Croatian flu . She states her elderly sister comes and stays with her on the weekends and is normally from a [place] [facility] and states she does not want to expose her to COVID if this is indeed what she has. She does not want any other tests or blood work. She reports approximately 5-6 episodes of nonbloody diarrhea over the past 24 hours. Occasional and mild abdominal cramping. She has no other symptoms or concerns at this time. Onset (ago): day(s) (yesterday) Quality: other (cramping) Associated symptoms: Deny chest pain, dyspnea, headache(s), nausea, rash or vomiting Treatments prior to arrival: none Review of Systems Const: Reports: fever(s) (reports fevres as high as 99.0); Denies: chills or body aches Card: Denies: chest pain Resp: Denies: dyspnea GI: Reports: diarrhea and GI cramping; Denies: nausea, vomiting, hematemesis, coffee ground emesis, hematochezia or melena : Denies: flank pain or dysuria Musc: Denies: neck pain, back pain, extremity pain or joint pain Skin/Breast: Denies: rash Neuro: Denies: headache(s), numbness in extremities, weakness in extremities, sensory changes or dizziness PFS ED PFSH: Medical History Lymphoma Port-A-Cath in place Family History Denies family history of Anesthesia complication Bleeding disorder Social History Smoking and tobacco status: never smoked Physical Exam Const: COMMON NORMALS: no acute distress, average body habitus, patient orien nadia x3, no limitations, healthy appearing, alert and well nourished Resp: COMMON NORMALS: normal respiratory effort and clear to auscultation bila terally AUSCULTATION: clear to auscultation bilaterally Cardio: COMMON NORMALS: regular rate and regular rhythm RATE: regular rate RHYTHM: regular rhythm GI: COMMON NORMALS: Normal to inspection, nondistended, normoactive bowel sounds present, Soft to palpation, non-tender, No hepatosplenomegaly present and no masses PALPATION: Yes Soft to palpation and Yes No hepatosplenomegaly pr esent : COMMON NORMALS: Yes no CVA tenderness BLADDER/KIDNEY EXAM: Yes no CVA tenderness Back/Pelvis: COMMON NORMALS: no CVA tenderness Extremity: COMMON NORMALS: normal to inspection Neuro: JD COMA SCALE: document [facility] findings Sanborn coma scale eye opening: Spontaneous Sanborn coma scale verbal response: Orientated Sanborn coma scale motor response: Obey commands Sanborn coma scale total score: 15 COMMON NORMALS: patient oriented x3, moves all extremities, no focal motor deficits and no sensory deficits noted SENSORIUM/ORIENTATION: Yes alert Skin: COMMON NORMALS: no rashes or lesions noted GENERAL SKIN EXAM: no rashes or lesions noted Course Vital Signs: Vital signs: Vital Signs Temperature 98.6 F 10/18/21 11:17 Pulse Rate 75 10/18/21 11:17 Respiratory Rate 16 10/18/21 11:17 Blood Pressure 114/74 10/18/21 11:17 Pulse Oximetry 96 10/18/21 11:17 [facility] - General Adult Medical Decision Making Patient states she is only here for a COVID test. She does not want any other testing or work-up performed. Coronavirus PCR obtained. I will contact patient later with results. Discharge Plan Discharge Patient Disposition: Home Clinical Impression: Diarrhea Qualifiers: Diarrhea type: unspecified type Qualified Code(s): R19.7 - Diarrhea, unspecified Condition: Stable Prescriptions: No Action acyclovir 400 mg Tablet 400 mg PO BID 0RF multivitamin Tablet 2 tab PO TID 0RF Calcium + D 600 mg(1,500mg) -200 unit Tablet 2 tab PO TID 0RF Vitamin C 500 mg Tablet 1,000 mg PO TID 0RF Fish Oil Capsule 2,000 mg PO TID 0RF Vitamin D3 125 mcg (5,000 unit) Tablet 125 mcg PO DAILY 0RF Vitamin With Lots Of Herbs 2 tab PO TID 0RF vitamin E 1 cap PO DAILY 0RF aspirin 81 mg tablet,delayed release (DR/EC) 81 mg PO DAILY Qty: 30 0RF Discharge Orders: Discharge ED (Routine); Ordered 10/18/21 Ordered By: Elvia Galloway Referrals: Jaycee Reed MD [Primary Care Provider] - Coding Level of Care Code ED Ceo And President for Remington Orantes
[2021-10-18 12:00] VITALS: PULSE 78; RESP 16; O2SAT 98
[2021-10-18 13:25] LABS: Adenovirus Not Detected (NOT DETECT); Chlamydia Pneumoniae Not Detected (NOT DETECT); Coronavirus 229E,HKU1,NL63,OC4 Not Detected (NOT DETECT); Human Metapneumovirus Not Detected (NOT DETECT); Human Rhinovirus/Enterovirus Not Detected (NOT DETECT); Influenza A Not Detected (NOT DETECT); Influenza A H1 Not Detected (NOT DETECT); Influenza A H1-2009 Not Detected (NOT DETECT); Influenza A H3 Not Detected (NOT DETECT); Influenza B Not Detected (NOT DETECT); Mycoplasma Pneumoniae Not Detected (NOT DETECT); Parainfluenza Virus Type 1 Not Detected (NOT DETECT); Parainfluenza Virus Type 2 Not Detected (NOT DETECT); Parainfluenza Virus Type 3 Not Detected (NOT DETECT); Parainfluenza Virus Type 4 Not Detected (NOT DETECT); Respiratory Syncytial Virus A Not Detected (NOT DETECT); Respiratory Syncytial Virus B Not Detected (NOT DETECT); SARS-COV-2 Not Detected (NOT DETECT)
== END 2021-10-18 12:00 | disposition home or self-care (01) ==
PROVIDERS: Emergency Provider Physician Assistant; PCP Family Medicine
DX: R53.1 Weakness (principal); R19.7 Diarrhea, unspecified
CPT/HCPCS: 87635; 99281

== ENCOUNTER 2022-01-15 11:09 | Outpatient (CLI) | payer MEDICARE, OTHER, SELFPAY ==
--- NOTE | 2022-01-15 11:24 | MM_ITS ---
WS: [id number] Bilateral screening 3D tomosynthesis digital mammogram, 01/15/2022 Clinical Data: SCREENING Comparison: 07/25/2019, 07/24/2018, 09/06/2011, 08/11/2010, 08/15/2009, 08/14/2008. Findings: The breast parenchymal pattern shows fibroglandular tissue. No spiculated masses or clustered calcifi cations are seen. There are no secondary signs of carcinoma. MM/[place] [id number] Impression: 1. Negative bilateral mammogram unchanged. 2. Recommend annual screening mammograms. BIRADS: 1-Negative FOLLOW UP: 1 Year Follow-up The CAD program checker was used.
== END 2022-01-15 11:10 | disposition home or self-care (01) ==
LOC: RAD 11:10
PROVIDERS: PCP Family Medicine; Visit Provider Family Medicine
DX: Z12.31 Encounter for screening mammogram for malignant neoplasm of breast (principal)
CPT/HCPCS: 77063; 77067

== ENCOUNTER → 2022-01-27 08:35 | Outpatient (BNVA) | payer MEDICARE, OTHER, SELFPAY | PROVIDERS: PCP Family Medicine; Referring Provider Family Medicine; Visit Provider Specialist | DX: M71.21 Synovial cyst of popliteal space [Baker], right knee (principal); M17.0 Bilateral primary osteoarthritis of knee; M25.861 Other specified joint disorders, right knee | CPT/HCPCS: 73560; 73565; 99204 ==

== ENCOUNTER 2022-02-03 08:10 | Oncology outpatient (recurring) (ONCR) | payer MEDICARE, OTHER, SELFPAY ==
[2022-02-03 08:36] LABS: Basophils % 0.2 %; Eosinophils % 0.9 %; Hematocrit 36.1 % (37.0-47.0); Hemoglobin 11.5 g/dL (11.5-15.3); Lymphocytes # 1.6 10^3/uL (0.8-4.8); Lymphocytes % 35.5 %; Mean Corpuscular HGB Conc 31.9 g/dL (30.0-36.0); Mean Corpuscular Hemoglobin 31.6 pg (28.0-34.0); Mean Corpuscular Volume 99.2 fl (81-99); Mean Platelet Volume 9.2 fL (7.4-10.4); Monocytes # 0.4 10^3/uL (0.2-0.9); Monocytes % 8.3 %; Neutrophils # 2.52 10^3/uL (1.8-7.7); Neutrophils % 54.9 %; Nucleated Red Blood Cells % 0 %; Platelet Count 161 10^3/cmm (130-400); Red Blood Count 3.64 10^6/uL (4.1-5.3); White Blood Count 4.6 10^3/uL (4.0-10.0)
[2022-02-03 09:05] LABS: Alanine Aminotransferase 13 U/L (0-33); Albumin Level 4.1 g/dL (3.5-5.2); Alkaline Phosphatase 73 IU/L (35-105); Anion Gap 12.1 (5-19); Aspartate Amino Transferase 17 U/L (0-32); Blood Urea Nitrogen 17 mg/dL (8-23); Calcium 8.9 mg/dL (8.5-10.5); Carbon Dioxide 27 mmol/L (22-29); Chloride 104 mmol/L (98-107); Glucose 109 mg/dL (65-115); Lactate Dehydrogenase 214 U/L (135-214); Osmolality Calculated 290 mOsm/kg (285-295); Potassium 4.1 mmol/L (3.5-5.1); Sodium 139 mmol/L (136-145); Total Bilirubin 0.2 mg/dL (0.15-1.2); Total Protein 6.1 g/dL (6.6-8.7)
== END 2022-02-07 23:59 | disposition home or self-care (01) ==
PROVIDERS: Internal Medicine Medical Oncology; PCP Family Medicine; Visit Provider Nurse Practitioner Family
DX: Z08 Encounter for follow-up examination after completed treatment for malignant neoplasm (principal); Z85.72 Personal history of non-Hodgkin lymphomas
CPT/HCPCS: 80053; 83615; 85025; G0463

== ENCOUNTER 2022-08-09 10:02 | Oncology outpatient (recurring) (ONCR) | payer MEDICARE, OTHER, SELFPAY ==
[2022-08-09 10:24] LABS: Basophils % 0.4 %; Eosinophils # 0.2 10^3/uL (0.0-0.8); Eosinophils % 3.6 %; Hematocrit 39.6 % (37.0-47.0); Hemoglobin 12.6 g/dL (11.5-15.3); Lymphocytes # 2.1 10^3/uL (0.8-4.8); Lymphocytes % 38.2 %; Mean Corpuscular HGB Conc 31.8 g/dL (30.0-36.0); Mean Corpuscular Hemoglobin 31.4 pg (28.0-34.0); Mean Corpuscular Volume 98.8 fl (81-99); Monocytes # 0.5 10^3/uL (0.2-0.9); Monocytes % 9.5 %; Neutrophils # 2.65 10^3/uL (1.8-7.7); Neutrophils % 48.1 %; Nucleated Red Blood Cells % 0 %; Platelet Count 183 10^3/cmm (130-400); Red Blood Count 4.01 10^6/uL (4.1-5.3); Red Cell Distribution Width 13.3 % (12.1-15.1); White Blood Count 5.5 10^3/uL (4.0-10.0)
[2022-08-09 10:48] LABS: Alanine Aminotransferase 16 U/L (0-33); Albumin Level 4.2 g/dL (3.5-5.2); Alkaline Phosphatase 96 U/L (35-105); Anion Gap 12.1 (5-19); Aspartate Amino Transferase 19 U/L (0-32); Blood Urea Nitrogen 20 mg/dL (8-23); Calcium 9.5 mg/dL (8.5-10.5); Carbon Dioxide 31 mmol/L (22-29); Chloride 103 mmol/L (98-107); Globulin 2.5 g/dL (1.3-4.6); Glucose 96 mg/dL (65-115); Lactate Dehydrogenase 192 U/L (135-214); Osmolality Calculated 296 mOsm/kg (285-295); Potassium 4.1 mmol/L (3.5-5.1); Sodium 142 mmol/L (136-145); Total Bilirubin 0.4 mg/dL (0.15-1.2); Total Protein 6.7 g/dL (6.6-8.7)
== END 2022-08-10 23:59 | disposition home or self-care (01) ==
PROVIDERS: PCP Family Medicine; Visit Provider Nurse Practitioner Family
DX: Z08 Encounter for follow-up examination after completed treatment for malignant neoplasm (principal); Z85.72 Personal history of non-Hodgkin lymphomas; R42 Dizziness and giddiness; Z92.21 Personal history of antineoplastic chemotherapy
CPT/HCPCS: 36415; 80053; 83615; 85025; 99213

== ENCOUNTER 2022-09-22 06:00 | Outpatient (RCR) | payer MEDICARE, OTHER, SELFPAY | END 2022-10-08 23:59 | disposition home or self-care (01) | LOC: SPT 06:00 | PROVIDERS: PCP Family Medicine; Visit Provider Internal Medicine Medical Oncology | DX: R42 Dizziness and giddiness (principal) | CPT/HCPCS: 97161; 97530 ==

== ENCOUNTER 2023-03-08 13:01 | Outpatient (CLI) | payer MEDICARE, OTHER, SELFPAY ==
--- NOTE | 2023-03-08 13:07 | MM_ITS ---
WS: [id number] BILATERAL 3D TOMOSYNTHESIS DIGITAL SCREENING MAMMOGRAPHY WITH CAD CLINICAL INFORMATION: SCREENING HISTORY: Screening mammogram. No current complaints. COMPARISON: None. TECHNIQUE: Bilateral CC and MLO views. FINDINGS: Scattered fibroglandular densities bilaterally. No suspicious focal mass, asymmetry, calcifications, or architectural distortion. No evidence of malignancy. Punctate and lucent centered calcifications. Ovoid nodule LEFT breast increased in size compared to previous measuring 9.6 mm. Recommend further e valuation with LEFT breast diagnostic mammography and ultrasound. RIGHT breast is unchanged in appearance. Vascular calcification. IMPRESSION: MM/[place] [id number] BI-RADS: 0-Incomplete: Need additional imaging evaluation FOLLOW UP: Need Additional Imaging Recommend LEFT breast diagnostic mammography and ultrasound in further evaluati on.
== END 2023-03-08 13:02 | disposition home or self-care (01) ==
LOC: RAD 13:04 → MOBLMAM 13:07
PROVIDERS: PCP Family Medicine; Visit Provider Family Medicine
DX: Z12.31 Encounter for screening mammogram for malignant neoplasm of breast (principal); N63.20 Unspecified lump in the left breast, unspecified quadrant
CPT/HCPCS: 77063; 77067

== ENCOUNTER 2023-05-26 13:56 | Outpatient (CLI) | payer MEDICARE, OTHER, SELFPAY ==
--- NOTE | 2023-05-26 14:20 | MM_ITS ---
WS: [id number] LEFT 3D TOMOSYNTHESIS DIGITAL MAMMOGRAPHY WITH CAD CLINICAL INFORMATION: ABNORMAL MAMMO HISTORY: Additional views COMPARISON: 2022 TECHNIQUE: 3 views of the left breast were obtained. FINDINGS: Scattered fibroglandular densities of the left breast. Again seen is the ovoid nodule LEFT breast jenifer suring approximately 9.6 mm unchanged compared to the recent mammogram. Ultrasound is pending. ULTRASOUND BREAST LEFT TECHNIQUE: Ultrasound left breast focused area of concern. CLINICAL INFORMATION: ABNORMAL MAMMO FINDINGS: In the area of concern at the 12 o'clock position 1 cm from the nipple, there is an ovoid hypoechoic nodule measuring 1.0 x 0.9 x 0.6 cm with a small amount of through transmission. This may present a c omplex cyst with internal debris but technically indeterminant. Considering increased size on recent mammogram recommend further evaluation with ultrasound-guided biopsy IMPRESSION: MM/[place] [id number] BI-RADS: 4-Suspicious Finding-Biopsy Should Be Considered FOLLOW UP: US Guided Biopsy Recommended
== END 2023-05-26 13:57 | disposition home or self-care (01) ==
LOC: RAD 13:57
PROVIDERS: PCP Family Medicine; Visit Provider Family Medicine
DX: R92.8 Other abnormal and inconclusive findings on diagnostic imaging of breast (principal)
CPT/HCPCS: 76642; 77061; G0279

== ENCOUNTER 2023-06-04 07:11 | Emergency (ER) | payer MEDICARE, OTHER, SELFPAY ==
[2023-06-04 07:22] VITALS: BP 146/72; PULSE 75; RESP 18; O2SAT 98
--- NOTE | 2023-06-04 07:49 | ED_ITS ---
HPI - Extremity Problem General: Chief complaint: Extremity Problem,Nontraumatic Stated complaint: right hand pain Time Seen by Provider: 06/04/23 07:34 History of Present Illness: Patient presents to the ER with complaints of a knot on the dorsum of her right hand for about a week and a half. Patient says the lump does not necessarily hurt. She does not remember getting poked or traumatized. However she does work out in the yard quite frequently. There is no redness or streaking to this lump. Patient has been using topical antibiotic ointment on it. Patient already has an appointment with her doctor to look at it coming up on this Tuesday. Review of Systems General: Reports: 10 or more systems reviewed and unremarkable except in HPI and below PFSH ED PFSH: Medical History Degenerative arthritis Nephrolithiasis Non Hodgkin's lymphoma Transformed diffuse large B-cell lymphoma Surgical History History of local excision of skin lesion Benign lesion arm, cheek, and scalp History of thoracentesis 08/1999 History of tonsillectomy 194 Family History Mother Stroke Other Dementia Diabetes Suicide Denies family history of CAD (coronary artery disease) Clotting disorder Hyperlipidemia Psychiatric illness Chronic kidney disease (CKD) Anesthesia complication Bleeding disorder Lung disease Cancer Hypertension Social History Smoking and tobacco/nicotine status: never used tobacco/nicotine Alcohol intake: never Physical Exam Const: COMMON NORMALS: no acute distress, average body habitus, patient oriented x3, no limitations, healthy appearing, alert and well nourished HENMT: COMMON NORMALS: normocephalic, atraumatic, hearing grossly normal bilaterally, external ears normal and Normal external nose present HEAD & SCALP: normocephalic and atraumatic NOSE: Normal external nose present EX TERNAL EAR: Yes external ears normal Neck/C-Spine: COMMON NORMALS: no JVD Chest: COMMONS NORMALS: normal inspection of the chest and normal palpation of entire chest wall Resp: COMMON NORMALS: normal respiratory effort, No retractions, No use of accessory muscles and clear to auscultation bilaterally AUSCULTATION: clear to auscultation bilaterally Cardio: COMMON NORMALS: no JVD, regular rate, regular rhythm, S1 normal heart sound present, S2 normal heart sound present, No gallops present (Cardio), No clicks present (Cardio), No murmurs present (Cardio) and No rub (Cardio) RATE: regular rate RHYTHM: regular rhythm HEART SOUNDS: S1 normal heart sound present and S2 normal heart sound present Extremity: NARRATIVE EXTREMITY EXAM: Soft but firm freely mobile less than 1 cm soft tissue like mass near the tendon but not on the tendon the extensor tendon of the second digit on the dorsum of the right hand. Nontender to palpate Neuro: COMMON NORMALS: patient oriented x3 SENSORIUM/ORIENTATION: Yes alert Course Vital Signs: Vital signs: Vital Signs Pulse Rate 75 06/04/23 07:22 Respiratory Rate 18 06/04/23 07:22 Blood Pressure 146/72 06/04/23 07:22 Pulse Oximetry 98 06/04/23 07:22 Oxygen Delivery Me thod Room Air 06/04/23 07:22 MDM - Extremity (Nontraumatic) Medical Decision Making It appears patient has a ganglion cyst on the dorsum of her right hand. Patient already has an appointment with her PCP to look at this. Patient be discharged from the ER. Differential Diagnosis Unlikely herpes zoster, gout, cellulitis, superficial thrombophlebitis, deep venous thrombosis of upper extremity, lower extremity edema or deep vein thrombosis of lower extremity Medical Records I reviewed the patient's medical records. Lab Data I reviewed the patient's lab results. No radiology studies performed this visit Discharge Plan Discharge Patient Disposition: Home Clinical Impression: Ganglion cyst Condition: Stable Prescriptions: No Action acyclovir 400 mg Tablet 400 mg PO BID multivitamin Tablet 2 tab PO TID Vitamin C 500 mg Tablet 1,000 mg PO TID Fish Oil Capsule 2,000 mg PO TID Vitamin D3 125 mcg (5,000 unit) Tablet 125 mcg PO DAILY Vitamin With Lots Of Herbs 2 tab PO TID vitamin E 1 cap PO DAILY Discharge Orders: Discharge ED (Routine); Ordered 06/04/23 Ordered By: Jomar Singletary Referrals: Jaycee Reed MD [Primary Care Provider] - 1 week Patient Instructions: Ganglion Cyst (ED) Activity Restrictions/Additional Instructions: Keep your appointment with your doctor for further evaluation and treatment. They may end up referring you to an orthopedic surgeon or hand surgeon for possible removal of this ganglion cyst. 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
== END 2023-06-04 07:59 | disposition home or self-care (01) ==
PROVIDERS: Emergency Provider Emergency Medicine; PCP Family Medicine
DX: M67.441 Ganglion, right hand (principal); Z85.72 Personal history of non-Hodgkin lymphomas
CPT/HCPCS: 99281

== ENCOUNTER 2023-07-13 14:25 | Outpatient (CLI) | payer MEDICARE, OTHER, SELFPAY ==
--- NOTE | 2023-07-13 14:31 | US_ITS ---
WS: [id number] ULTRASOUND-GUIDED LEFT BREAST BIOPSY CLINICAL INFORMATION: ABNORMAL MAMMOGRAPHY FINDINGS: The procedure including risks, benefits, and complications were discussed with the patient who agreed to proceed. Using sterile technique patient was prepped and draped in the usual sterile fashion. Aft er 1% lidocaine utilizing real-time ultrasound guidance the LEFT breast lesion at the 12 o'clock posi tion was aspirated with an 18-gauge needle. Approximately 3 cc of bloody fluid was aspirated. Cyst co mpletely collapsed. No immediate complications. No biopsy clip was placed. Cytology demonstrates apocrine type cyst with minimal atypia. IMPRESSION: 1. Uncomplicated ultrasound-guided LEFT breast cyst aspiration. Cyst completely resolved after aspir ation. 2. The cytology demonstrates benign cyst 3. Recommend return to annual screen mammography. US/[place] [id number] BI-RADS: 2-Benign FOLLOW UP: 1 Year Follow-up
== END 2023-07-13 14:26 | disposition home or self-care (01) ==
PROVIDERS: PCP Family Medicine; Visit Provider Family Medicine
DX: N60.02 Solitary cyst of left breast (principal); R92.8 Other abnormal and inconclusive findings on diagnostic imaging of breast
CPT/HCPCS: 19000; 76942; 88112; 88305

== ENCOUNTER 2023-08-15 22:42 | Inpatient (IN) | payer MEDICARE, OTHER, SELFPAY ==
[2023-08-15 22:43] VITALS: BP 149/69; PULSE 93; RESP 18; TEMP 38.6; O2SAT 94; BMI 22.6
--- NOTE | 2023-08-15 22:52 | XRR_ITS ---
PROCEDURE INFORMATION: Exam: XR Chest Exam date and time: 08/15/2023 11:10 PM Age: 78 years old Clinical indication: Fever TECHNIQUE: Imaging protocol: Radiologic exam of the chest. Views: 1 view. COMPARISON: CR XR chest 1V portable [id number] 03/04/2021 8:33 AM FINDINGS: Lungs: There is a left lower lung zone consolidation with an associated left pleural effusion. Pleural spaces: Unremarkable. No right pleural effusion. No pneumothorax. Heart/Mediastinum: Unremarkable. No cardiomegaly. Bones/joints: There is mild degenerative disease of bilateral acromioclavicular joints and bilateral glenohumeral joints. XR/XR chest 1V portable [id number] IMPRESSION: Left lower lung zone consolidation with a small left pleural effusion.
--- NOTE | 2023-08-15 22:56 | ED_ITS ---
HPI - Nausea/Vomiting/Diarrhea 2 General: Chief complaint: Nausea/Vomiting/Diarrhea Stated complaint: nausea, shaky Time Seen by Provider: 08/15/23 22:44 History of Present Illness: Patient presents to the ER by EMS with complaints of shaking, nausea vomiting, and being exposed to COVID, the shaking nausea vomiting started about an hour ago. Patient has been exposed to a person who is COVID-positive for the last couple days. Patient said she was feeling good up until that point. Patient arrives with a fever of 101.5. Patient was given 4 mg Zofran on route however she did still had emesis x 1 when she was in the exam room. Review of Systems 2 General: Reports: 10 or more systems reviewed and unremarkable except in HPI and below PFSH ED 2 PFSH: Medical History Nephrolithiasis Degenerative arthritis Non Hodgkin's lymphoma Transformed diffuse large B-cell lymphoma Surgical History History of local excision of skin lesion Benign lesion arm, cheek, and scalp History of thoracentesis 08/1999 History of tonsillectomy 194 Family History Mother Stroke Other Dementia Diabetes Suicide Denies family history of CAD (coronary artery disease) Clotting disorder Hyperlipidemia Psychiatric illness Chronic kidney disease (CKD) Anesthesia complication Bleeding disorder Lung disease Cancer Hypertension Social History Smoking and tobacco/nicotine status: never used tobacco/nicotine Alcohol intake: never Physical Exam 2 Const: COMMON NORMALS: no acute distress, average body habitus, patient oriented x3, no limitations, healthy appearing, alert and well nourished HENMT: COMMON NORMALS: normocephalic, atraumatic, hearing grossly normal bilaterally, external ears normal, Normal external nose present, moist oral mucous membranes and oropharynx normal HEAD & SCALP: normocephalic and atraumatic NOSE: Normal external nose present EXTERNAL EAR: Yes external ears normal Neck/C-Spine: COMMON NORMALS: no JVD Chest: COMMONS NORMALS: normal inspection of the chest and normal palpation of entire chest wall Resp: COMMON NORMALS: normal respiratory effort, No retractions, No use of accessory muscles and clear to auscultation bilaterally AUSCULTATION: clear to auscultation bilaterally Cardio: COMMON NORMALS: no JVD, regular rate, regular rhythm, S1 normal heart sound present, S2 normal heart sound present, No gallops present (Cardio), No clicks present (Cardio), No murmurs present (Cardio) and No rub (Cardio) R ATE: regular rate RHYTHM: regular rhythm HEART SOUNDS: S1 normal heart sound present and S2 normal heart sound present GI: COMMON NORMALS: Normal to inspection, nondistended, normoactive bowel sounds present, Soft to palpation, non-tender, No hepatosplenomegaly present and no masses PALPATION: Yes Soft to palpation and Yes No hepatosplenomegaly present Neuro: COMMON NORMALS: patient oriented x3 SENSORIUM/ORIENTATION: Yes alert Course 2 Vital Signs: Vital signs: Vital Signs Temperature 102 F H 08/16/23 00:25 Pulse Rate 93 08/15/23 22:43 Respiratory Rate 18 08/15/23 22:43 Blood Pressure 149/69 08/15/23 22:43 Pulse Oximetry 94 08/15/23 22:43 Oxygen Delivery Me thod Room Air 08/15/23 22:43 MDM - Nausea/Vomiting/Diarrhea Medical Decision Making Patient was evaluated and had lab work as well as chest x-ray done. Lab work showed elevated white count of 13.2 and elevated lactic acid 2.9, chest x-ray showed left lower lobe infiltrate. Patient was bolused with 1 L normal saline and given 800 mg of ibuprofen and 1 g of Tylenol to help with her fever. Patient was also given 3.[address] Up was consulted who agreed to place the patient in observation for further evaluation and treatment. Differential Diagnosis Likely gastroenteritis; Unlikely traveler's diarrhea, food poisoning, clostridium difficile infection, drug-induced nausea and vomiting or dehydration Medical Records I reviewed the patient's medical records. Lab Data I reviewed the patient's lab results. 08/15/23 22:26 08/15/23 22:26 Radiology Impressions Chest X-Ray 08/15/23 22:52 IMPRESSION: Left lower lung zone consolidation with a small left pleural effusion. Laboratory Results WBC 13.20 10^3/uL (3.29-11.43) H 08/15/23 22:26 RBC 3.96 10^6/uL (3.85-5.65) 08/15/23 22: Hgb 12.70 g/dL (11.27-16.99) 08/15/23 22: Hct 38.8 % (36-47) 08/15/23 22: MCV 98.0 fl (85-98) 08/15/23 22: MCH 32.1 pg (27-33) 08/15/23: MCHC 32.7 g/dL (30-55) 08/15/23 22: RDW 13.5 % (12.1-15.1) 08/15/23: Plt Count 157 10^3/cmm (157-399) 08/15/23: MPV 9.1 fL (7.4-10.4) 08/15/23: Neut % (Auto) 79.1 % 08/15/23 22: Lymph % (Auto) 15.5 % 08/15/23: Christian % (Auto) 4.5 % 08/15/23: Eos % (Auto) 0.3 % 08/15/23: Baso % (Auto) 0.2 % 08/15/23: Neut # (Auto) 10.44 10^3/uL (1.8-7.7) H 08/15/23: Lymph # (Auto) 2.1 10^3/uL (0.8-4.8) 08/15/23: Christian # (Auto) 0.6 10^3/uL (0.2-0.9) 08/15/23: Eos # (Auto) 0.0 10^3/uL (0.0-0.8) 08/15/23 22: Baso # (Auto) 0.0 10^3/uL (0.0-0.1) 08/15/23: Nucleated RBC % (auto) 0 % 08/15/23: Nucleated RBCs # 0.0 /100WBC 08/15/23 22: Sodium 140 mmol/L (136-145) 08/15/23: Potassium 3.9 mmol/L (3.5-5.1) 02/05/24 22:26 Chloride 100 mmol/L (98-107) 08/15/23 22:26 Carbon Dioxide 29 mmol/L (22-29) 08/15/23 22:26 Anion Gap 14.9 (5-19) 08/15/23 22:26 BUN 20 mg/dL (8-23) 08/15/23 22:26 Creatinine 0.7 mg/dL (0.5-0.9) 08/15/23 22:26 GFR Calculation Not Reportable 08/15/23 22:26 Glucose 149 mg/dL (65-115) H 08/15/23 22:26 Calculated Osmolality 295 mOsm/kg (285-295) 08/15/23 22:26 Lactic Acid 2.9 mmol/L (0.5-2.2) H 08/16/23 00:59 Calcium 9.6 mg/dL (8.5-10.5) 08/15/23 22:26 Magnesium 2.0 mg/dL (1.7-2.3) 08/15/23 22:26 Total Bilirubin 0.2 mg/dL (0.15-1.2) 08/15/23 22:26 AST 18 U/L (0-32) 08/15/23 22:26 ALT 15 U/L (0-33) 08/15/23 22:26 Alkaline Phosphatase 80 U/L (35-105) 08/15/23 22:26 Total Protein 7.0 g/dL (6.6-8.7) 08/15/23 22:26 Albumin 4.3 g/dL (3.5-5.2) 08/15/23 22:26 Globulin 2.7 g/dL (1.3-4.6) 08/15/23 22:26 Procalcitonin 0.11 ng/mL (0-0.5) 08/16/23 00:54 Urine Color Yellow (Yellow) 08/16/23 01:15 Urine Appearance Clear (CLEAR) 08/16/23 01:15 Urine pH 6 (5-7) 08/16/23 01:15 Ur Specific [place] 1.015 (1.005-1.030) 08/16/23 01:15 Urine Protein Neg (Negative) 08/16/23 01:15 Urine Glucose (UA) Norm (Normal) 08/16/23 01:15 Urine Ketones Negative (Negative) 08/16/23 01:15 Urine Blood Trace (Negative) H 08/16/23 01:15 Urine Nitrate Negative (Negative) 08/16/23 01:15 Urine Bilirubin Neg (Negative) 08/16/23 01:15 Urine Urobilinogen Neg mg/dL (Negative) 08/16/23 01:15 Ur Leukocyte Esterase Negative (Negative) 08/16/23 01:15 Urine RBC 0-4 /hpf (0-2) H 08/16/23 01:15 Urine WBC 0-4 /hpf (0-5) H 08/16/23 01:15 Ur Squamous Epith Cells None /hpf (0-5) 08/16/23 01:15 Amorphous Sediment Not Reportable 08/16/23 01:15 Urine Bacteria Trace /hpf (NONE) 08/16/23 01:15 Influenza Type A Ag negative (Negative) 08/15/23 23:35 Influenza Type B Ag negative (Negative) 08/15/23 23:35 SARS-CoV-2 Ag (Rapid) negative (Negative) 08/15/23 23:35 All radiology interpretation(s) finalized by discharge Discharge Plan Discharge Patient Disposition: Placed in Observation Clinical Impression: Elevated lactic acid level Pneumonia Qualifiers: Pneumonia type: due to unspecified organism Laterality: left Lung location: l ower lobe of lung Qualified Code(s): J18.9 - Pneumonia, unspecified organism Fever Qualifiers: Fever type: unspecified Qualified Code(s): R50.9 - Fever, unspecified Nausea & vomiting Qualifiers: Vomiting type: unspecified Qualified Code(s): R11.2 - Nausea with vomiting, unspecified 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
[2023-08-15 22:57] LABS: Basophils % 0.2 %; Eosinophils % 0.3 %; Hematocrit 38.8 % (36-47); Lymphocytes # 2.1 10^3/uL (0.8-4.8); Lymphocytes % 15.5 %; Mean Corpuscular HGB Conc 32.7 g/dL (30-55); Mean Corpuscular Hemoglobin 32.1 pg (27-33); Mean Platelet Volume 9.1 fL (7.4-10.4); Monocytes # 0.6 10^3/uL (0.2-0.9); Monocytes % 4.5 %; Neutrophils # 10.44 10^3/uL (1.8-7.7); Neutrophils % 79.1 %; Nucleated Red Blood Cells % 0 %; Platelet Count 157 10^3/cmm (157-399); Red Blood Count 3.96 10^6/uL (3.85-5.65); Red Cell Distribution Width 13.5 % (12.1-15.1)
[2023-08-15 23:11] LABS: Alanine Aminotransferase 15 U/L (0-33); Albumin Level 4.3 g/dL (3.5-5.2); Alkaline Phosphatase 80 U/L (35-105); Anion Gap 14.9 (5-19); Aspartate Amino Transferase 18 U/L (0-32); Blood Urea Nitrogen 20 mg/dL (8-23); Calcium 9.6 mg/dL (8.5-10.5); Carbon Dioxide 29 mmol/L (22-29); Chloride 100 mmol/L (98-107); Creatinine Clr Calc Pharmacy 54.8937; Globulin 2.7 g/dL (1.3-4.6); Glucose 149 mg/dL (65-115); Osmolality Calculated 295 mOsm/kg (285-295); Potassium 3.9 mmol/L (3.5-5.1); Sodium 140 mmol/L (136-145); Total Bilirubin 0.2 mg/dL (0.15-1.2)
[2023-08-15] MEDS: acetaminophen 500 mg Tablet 1000 MG PO (23:16)
[2023-08-15] MEDS: ondansetron 2 mg/ML SDV 2 mL 4 MG IVP (23:17)
[2023-08-15] MEDS: sodium chloride 0.9% 1,000 ML 999 ML IV (23:18)
[2023-08-15 23:54] LABS: Influenza A by IFA negative (Negative); Influenza B by IFA negative (Negative); SARS Covid-2 Antigen negative (Negative)
[2023-08-16] VITALS (15 sets, daily range): BP systolic 84–107; BP diastolic 35–58; PULSE 63–88; RESP 15–18; TEMP 36.4–38.8; O2SAT 90–95; BMI 22.6
[2023-08-16] MEDS: piperacillin-tazobactam 3.375 GM in sodium chloride 0.9% (plus) 50 ML IV ×3 (00:52→22:48)
[2023-08-16] MEDS: ibuprofen 800 mg tablet PO (00:57)
[2023-08-16 01:23] LABS: Lactic Sepsis W/Reflex 2.9 mmol/L (0.5-2.2)
[2023-08-16 01:28] LABS: Add Urine Microscopic? YES; Bilirubin Urine Neg (Negative); Blood Urine Trace (Negative); Glucose Urine UA Norm (Normal); Ketones Urine Negative (Negative); Leukocyte Esterase Urine Negative (Negative); Nitrate Urine Negative (Negative); Protein Urine Neg (Negative); Specific Gravity, Urine 1.015 (1.005-1.030); Urine Appearance Clear (CLEAR); Urine Color Yellow (Yellow); Urobilinogen Urine Neg (Negative); pH Urine 6 (5-7)
[2023-08-16 01:29] LABS: Add Urine Culture? No; Bacteria Urine TRACE /hpf; RBC Urine 0-4 /hpf (0-2); WBC Urine 0-4 /hpf (0-5)
[2023-08-16 01:30] LABS: Procalcitonin 0.11 ng/mL (0-0.5)
[2023-08-16] MEDS: sodium chloride 0.9% 1,000 ML 999 ML IV ×2 (02:10→03:47)
--- NOTE | 2023-08-16 02:11 | P.HP_ITS ---
Providers/Chief Complaint 2 Primary Care Provider: Jaycee Reed MD Chief Complaint: nausea, shaky History of Present Illness Ira Frost is a 78 year old female with a past medical history significant for DLBCL and osteoarthritis who presents to the emergency department with shakiness, nausea, and diarrhea. Patient reports onset at 5 PM on Tuesday. Denies cough, or shortness of breath. She reported transient pleurisy on the left earlier in the night that has now resolved. In the ED, patient was found to have a fever with mildly elevated white count and lactic acid. She was on room air with SpO2 94 to 95%. Rapid flu and influenza were negative. She does report exposure to COVID 2 days ago. Chest x-ray showed left lower consolidation. She was treated with Zosyn and IVF. She reports she lives home alone and feels weak. A daughter from [place] is in the room. There is also a daughter who lives locally. Patient states she does not get either them sick so she does not want them to stay with her. Discussed with both the ED provider and the patient/family. She does not meet inpatient criteria. She can be placed in observation but she has crossed midnight so she may be discharged later today. Patient/family understand and agree to treatment plan. Review of Systems 2 Narrative: A complete review of systems was obtained and is negative except as stated in HPI. Medications/Allergies Home Medications Medication Instructions Recorded Confirmed Last Taken Type acyclovir 400 mg tablet 400 mg PO BID 01/08/20 08/09/22 03/04/21 07:00 History Vitamin With Lots Of Herbs 2 tab PO TID 03/04/21 08/09/22 Unknown History ascorbic acid (vitamin C) 500 mg 1,000 mg PO TID 03/04/21 08/09/22 03/04/21 07:00 History tablet (Vitamin C) cholecalciferol (vitamin D3) 125 125 mcg PO DAILY 03/04/21 08/09/22 Unknown History mcg (5,000 unit) tablet (Vitamin D3) multivitamin 2 tab PO TID 03/04/21 08/09/22 03/04/21 07:00 History omega-3 fatty acids 2,000 mg PO TID 03/04/21 08/09/22 03/04/21 07:00 History vitamin E 1 cap PO DAILY 03/04/21 08/09/22 Unknown History Allergies Allergy/AdvReac Type Severity Reaction Status Date / Time meperidine [From Demerol] Allergy Unknown Verified 08/15/23 22:48 PFSH Acute 2 PFSH: Medical History Nephrolithiasis Degenerative arthritis Non Hodgkin's lymphoma Transformed diffuse large B-cell lymphoma Surgical History History of local excision of skin lesion Benign lesion arm, cheek, and scalp History of thoracentesis 08/1999 History of tonsillectomy 194 Family History Mother Stroke Other Dementia Diabetes Suicide Denies family history of CAD (coronary artery disease) Clotting disorder Hyperlipidemia Psychiatric illness Chronic kidney disease (CKD) Anesthesia complication Bleeding disorder Lung disease Cancer Hypertension Social History Smoking and tobacco/nicotine status: never used tobacco/nicotine Alcohol intake: never Vitals/I&O/Wt Last Vital Signs Temp 102 F H 08/16/23 00:25 Pulse 93 08/15/23 22:43 Resp 18 08/15/23 22:43 BP 107/58 08/16/23 01:53 Pulse Ox 93 08/16/23 01:53 O2 Del Method Room Air 08/16/23 01:53 08/15/23 08/15/23 08/16/23 14:59 22:59 06:59 Intake Total 1050 / 1050 Balance 1050 / 1050 Weight last 48 hrs Weight 63.503 kg Physical Exam 2 Narrative: General: Patient is awake and alert. Sitting in bed. Head: Normocephalic. Atraumatic. EOM intact. Neck: No JVD. Cardiovascular: RRR. No gallops. No murmurs. No peripheral edema. Lungs: Breath sounds diminished bilateral bases no use of accessory muscles, no crackles or wheezes. Skin: No jaundice. No rashes. Abdomen: Normal bowel sounds, abdomen soft and nontender. Genito Urinary: Genital exam not performed since complaints not related. Rectal: Rectal exam not performed since no symptoms indicated blood loss. Extremities: No cyanosis or clubbing. Musculoskeletal: No swollen or erythematous joints. Neurological: Moves all 4 extremities. No myoclonus. Data 08/15/23 22:26 08/15/23 22:26 Micro: Microbiology 08/16/23 00:59 Blood Culture - Preliminary Blood SPECIMEN COLLECTED 08/16/23 00:54 Blood Culture - Preliminary Blood SPECIMEN COLLECTED A&P Assessment and plan (1) Pneumonia: Left basilar community-acquired pneumonia Given Zosyn in ED Ceftriaxone and doxycycline ordered Qualifiers: Laterality: left Lung location: lower lobe of lung Pneumonia type: due to unspecified organism Qualified Code(s): J18.9 - Pneumonia, unspecified organism (2) Nausea & vomiting: Improved Antiemetics as needed Qualifiers: Vomiting type: unspecified Qualified Code(s): R11.2 - Nausea with vomiting, unspecified (3) Elevated lactic acid level: Status post IV fluid resuscitation (4) Diffuse large b-cell lymphoma, lymph nodes of multiple sites: Plan DVT prophylaxis: Lovenox Code: Assume full code Attestations 2 Medical Necessity Statement*: Admit to observation as expected hospitalization not to cross 2 midnights. Coding Level of Care Code Acute Code for [facility] Fwd Diagnoses Pneumonia J18.9 Laterality: left Lung location: lower lobe of lung Pneumonia type: due to unspecified organism Nausea & vomiting R11.2 Vomiting type: unspecified Elevated lactic acid level R79.89 Diffuse large b-cell lymphoma, lymph nodes of multiple sites C83.38
[2023-08-16 02:52] LABS: Reflex Lactate Order REFLEX LACTIC ORDERD
[2023-08-16 03:19] LABS: Lactic Acid level (Lactate) 1.6 mmol/L (0.5-2.2)
[2023-08-16] MEDS: cefTRIAXone 1,000 MG in sodium chloride 0.9% (plus) 50 ML 100 MG IV (05:01)
[2023-08-16] MEDS: doxycycline 100 mg Tablet PO (05:02)
--- NOTE | 2023-08-16 08:11 | CTR_ITS ---
PROCEDURE INFORMATION: Exam: CTA Chest With Contrast Exam date and time: 08/16/2023 10:25 AM Age: 78 years old Clinical indication: Other: Hypotension; Other: Chest pain; Additional info: Chest pain, hypotension TECHNIQUE: Imaging protocol: Computed tomographic angiography of the chest with contrast. Exam focused on the arteries. 3D rendering (Not supervised by radiologist): MIP and/or 3D reconstructed images were created by the technologist. Radiation optimization: All CT scans at this facility use at least one of these dose optimization techniques: automated exposure control; mA and/or kV adjustment per patient size (includes targeted exams where dose is matched to clinical indication); or iterative reconstruction. Contrast material: OMNI 350; Contrast volume: 80 ml; Contrast route: INTRAVENOUS (IV); COMPARISON: CT angio chest PE protcl [id number] 08/06/2018 5:45 AM RADIATION DOSE METRICS: Total DLP (mGy-cm): 256.81 FINDINGS: Pulmonary arteries: Normal. No pulmonary emboli. Aorta: Unremarkable. No aortic aneurysm. No aortic dissection. Lungs: Bilateral bronchial wall thickening and mucous plugging. Consolidative opacities in the bilateral lower lobes and lingula. Septal thickening in the lung bases. Pleural spaces: Small bilateral pleural effusions. Heart: Unremarkable. No cardiomegaly. No pericardial effusion. Coronary arteries: Mild coronary artery calcification. Lymph nodes: Mediastinal and hilar lymphadenopathy including reference right hilar lymph node measuring 1.5 cm in short axis and prevascular lymph node measuring 1.7 cm in short axis. Bones/joints: Unremarkable. No acute fracture. Soft tissues: Unremarkable. CT/CT angio chest PE protcl [id number] IMPRESSION: 1. Lingular and bilateral lower lobe consolidations, concerning for infection/aspiration. 2. Mediastinal lymphadenopathy, likely reactive. 3. Bronchial wall thickening and mucous plugging, as can be seen in the setting of bronchitis. 4. Small bilateral pleural effusions.
--- NOTE | 2023-08-16 08:51 | PM.CCNAC ---
Critical Care Event Note The high probability of a clinically significant, sudden or life threatening deterioration of the patient's [pulmonary, vascular] system(s) required my full and direct attention, intervention and personal management. The critical care time is as shown. This time is in addition to time spent performing any reported procedures but includes the following: [x] Data and vital sign review and interpretation [x] Patient assessment, examination and intervention [x] Documentation [x] Medication orders and management History and physical reviewed. Assumed care. Nursing called me for blood pressure with MAP around 55. She has received multiple boluses through the night. Tmax 102, at around 12:30 AM. I interviewed the patient and she is alert, responsive but feeling weak. Current blood pressure 95/65. Heart rate 70. She complains of some pain with deep breathing on the left. I asked the nurse to initiate normal saline at 125 cc an hour. She is already received over 3 L of boluses. She is to continue her current antibiotics of ceftriaxone and doxycycline. I have ordered a CTA of her chest to clarify her left-sided pneumonia with possible small effusion as well as rule out pulmonary embolism. I have ordered a respiratory panel as she has had a recent COVID exposure. Lovenox for DVT prophylaxis was initiated. Blood cultures have already been sent. I will repeat her laboratory today. Urinalysis did not appear infected. Changed to regular admission secondary to acuity of illness, with worsening today with hypotension. Critical Care Time Code activated: No Critical Care Time (min): 36 Coding Level of Care Code Critical Care Time Spent (min) 36
--- NOTE | 2023-08-16 08:58 | PC.PHAR ---
pt states takes no prescription medications-pt states only takes the otc vitamins and herbs pt states she cant remember all the names of what she takes
[2023-08-16] MEDS: enoxaparin 40 mg/0.4 mL Syringe SUBCUT (09:09)
[2023-08-16] MEDS: sodium chloride 0.9% 1,000 ML 125 ML IV ×3 (09:09→22:48)
[2023-08-16 10:03] LABS: Basophils % 0.2 %; Eosinophils % 0.1 %; Hematocrit 31.1 % (36-47); Lymphocytes # 1.2 10^3/uL (0.8-4.8); Lymphocytes % 9.3 %; Mean Corpuscular HGB Conc 31.5 g/dL (30-55); Mean Corpuscular Hemoglobin 30.9 pg (27-33); Mean Corpuscular Volume 98.1 fl (85-98); Mean Platelet Volume 9.1 fL (7.4-10.4); Monocytes # 0.8 10^3/uL (0.2-0.9); Monocytes % 5.9 %; Neutrophils # 11.13 10^3/uL (1.8-7.7); Neutrophils % 83.8 %; Nucleated Red Blood Cells % 0 %; Platelet Count 129 10^3/cmm (157-399); Red Blood Count 3.17 10^6/uL (3.85-5.65); Red Cell Distribution Width 13.6 % (12.1-15.1); White Blood Count 13.26 10^3/uL (3.29-11.43)
[2023-08-16 10:16] LABS: Alanine Aminotransferase 36 U/L (0-33); Albumin Level 3.1 g/dL (3.5-5.2); Alkaline Phosphatase 56 U/L (35-105); Anion Gap 10.6 (5-19); Aspartate Amino Transferase 31 U/L (0-32); Blood Urea Nitrogen 15 mg/dL (8-23); Calcium 7.8 mg/dL (8.5-10.5); Carbon Dioxide 27 mmol/L (22-29); Chloride 110 mmol/L (98-107); Globulin 1.8 g/dL (1.3-4.6); Glucose 134 mg/dL (65-115); Osmolality Calculated 301 mOsm/kg (285-295); Potassium 3.6 mmol/L (3.5-5.1); Sodium 144 mmol/L (136-145); Total Bilirubin 0.4 mg/dL (0.15-1.2); Total Protein 4.9 g/dL (6.6-8.7)
[2023-08-16] MEDS: iohexol 350 mg/mL 500 mL Btl (per mL) IV (10:33)
--- NOTE | 2023-08-16 10:37 | PC.NURSE ---
0800- This RN is notified of a low BP on pt. Reassessment shows 83/35 with MAP of 50. RN immediately placed pt in trendelenburg position and notifies Dr. Bryan. Pt is asymptomatic at this time. Dr. Bryan arrives and assesses pt. Maintenance fluids started at 125ml/hr. Dr. Bryan would like BP checked Q15m x4. 0815- BP 87/51 trendelenburg 0830- BP 92/53 trendelenburg 0900- BP 97/60 trendelenburg 0915- BP 92/[address] Bryan of current readings.
[2023-08-16] MEDS: vancomycin 1,250 MG/250 ML PIGGYBACK 250 MG IV (12:16)
[2023-08-16 13:03] LABS: Adenovirus Not Detected (NOT DETECT); Chlamydia Pneumoniae Not Detected (NOT DETECT); Coronavirus 229E,HKU1,NL63,OC4 Not Detected (NOT DETECT); Human Metapneumovirus Not Detected (NOT DETECT); Human Rhinovirus/Enterovirus Not Detected (NOT DETECT); Influenza A Not Detected (NOT DETECT); Influenza A H1 Not Detected (NOT DETECT); Influenza A H1-2009 Not Detected (NOT DETECT); Influenza A H3 Not Detected (NOT DETECT); Influenza B Not Detected (NOT DETECT); Mycoplasma Pneumoniae Not Detected (NOT DETECT); Parainfluenza Virus Type 1 Not Detected (NOT DETECT); Parainfluenza Virus Type 2 Not Detected (NOT DETECT); Parainfluenza Virus Type 3 Not Detected (NOT DETECT); Parainfluenza Virus Type 4 Not Detected (NOT DETECT); Respiratory Syncytial Virus A Not Detected (NOT DETECT); Respiratory Syncytial Virus B Not Detected (NOT DETECT); SARS-COV-2 Not Detected (NOT DETECT)
[2023-08-17] VITALS (7 sets, daily range): BP systolic 107–127; BP diastolic 56–68; PULSE 67–82; RESP 16–18; TEMP 36.6–37.2; O2SAT 76–95
[2023-08-17 06:11] LABS: Basophils % 0.2 %; Eosinophils % 0.3 %; Hematocrit 32.8 % (36-47); Lymphocytes # 1.2 10^3/uL (0.8-4.8); Mean Corpuscular Hemoglobin 31.5 pg (27-33); Mean Corpuscular Volume 98.5 fl (85-98); Mean Platelet Volume 9.5 fL (7.4-10.4); Monocytes # 0.4 10^3/uL (0.2-0.9); Monocytes % 3.7 %; Neutrophils # 8.35 10^3/uL (1.8-7.7); Neutrophils % 83.2 %; Nucleated Red Blood Cells % 0 %; Platelet Count 130 10^3/cmm (157-399); Red Blood Count 3.33 10^6/uL (3.85-5.65); White Blood Count 10.03 10^3/uL (3.29-11.43)
[2023-08-17 06:31] LABS: Alanine Aminotransferase 28 U/L (0-33); Albumin Level 3.1 g/dL (3.5-5.2); Alkaline Phosphatase 68 U/L (35-105); Anion Gap 14.5 (5-19); Aspartate Amino Transferase 20 U/L (0-32); Blood Urea Nitrogen 12 mg/dL (8-23); Calcium 7.7 mg/dL (8.5-10.5); Carbon Dioxide 20 mmol/L (22-29); Chloride 109 mmol/L (98-107); Globulin 2.3 g/dL (1.3-4.6); Glucose 89 mg/dL (65-115); Magnesium 1.8 mg/dL (1.7-2.3); Osmolality Calculated 289 mOsm/kg (285-295); Potassium 3.5 mmol/L (3.5-5.1); Sodium 140 mmol/L (136-145); Total Bilirubin 0.5 mg/dL (0.15-1.2); Total Protein 5.4 g/dL (6.6-8.7)
[2023-08-17] MEDS: piperacillin-tazobactam 3.375 GM in sodium chloride 0.9% (plus) 50 ML IV ×3 (06:33→21:59)
[2023-08-17] MEDS: sodium chloride 0.9% 1,000 ML 125 ML IV (06:33)
[2023-08-17] MEDS: enoxaparin 40 mg/0.4 mL Syringe SUBCUT (08:33)
[2023-08-17] MEDS: docusate sodium 100 mg Capsule PO (09:44)
--- NOTE | 2023-08-17 11:30 | P.PN_ITS ---
Subjective 2 Subjective: Trudy reports she feels weak and rough this morning. Occasional cough but nonproductive. Currently on 2 L of oxygen. Medications: Reviewed: Yes Vitals/I&O/Wt Last Vital Signs Temp 97.9 F 08/17/23 08:44 Pulse 74 08/17/23 08:44 Resp 16 08/17/23 08:44 BP 107/56 08/17/23 08:44 Pulse Ox 90 08/17/23 08:44 O2 Del Method Room Air 08/17/23 08:44 08/16/23 08/17/23 08/17/23 22:59 06:59 14:59 Intake Total 2476.250 / 3376.250 1018.75 / 4395.000 913.333 / 913.333 Output Total 350 / 350 Balance 2126.250 / 3026.250 1018.75 / 4045.000 913.333 / 913.333 Weight last 48 hrs Weight 70.307 kg Weight 66.27 kg Weight 63.503 kg Weight 63.503 kg Physical Exam 2 Narrative: General exam no distress Neck is supple Cardiovascular regular rate and rhythm without murmur Lungs few crackles in the right lung, left clear but with diminished breath sounds Abdomen is soft Extremities no cyanosis, edema Data 08/17/23 05:33 08/17/23 05:33 Micro: Microbiology 08/16/23 00:59 Blood Culture - Preliminary Blood NEGATIVE TO DATE 08/16/23 00:54 Blood Culture - Preliminary Blood NEGATIVE TO DATE 08/16/23 04:20 Bacterial Antigens - Final Urine,Voided A&P Assessment and plan (1) Pneumonia: Patient currently being treated for pneumonia Antibiotics were expanded yesterday to include vancomycin and Zosyn Awaiting cultures Bacterial antigens negative Respiratory panel negative MRSA PCR pending White blood cell count decreasing Still requiring oxygen CTA demonstrated bilateral lower lobe infiltrates, mucous plugging, small bilateral effusions and no pulmonary embolism CBC, BMP in the morning Associated with hypoxia. Qualifiers: Laterality: left Lung location: lower lobe of lung Pneumonia type: due to unspecified organism Qualified Code(s): J18.9 - Pneumonia, unspecified organism (2) Hypotension: Improved. Likely secondary to pneumonia Discontinue IV fluids (3) Nausea & vomiting: Resolved Able to take p.o., hydrate p.o. Qualifiers: Vomiting type: unspecified Qualified Code(s): R11.2 - Nausea with vomiting, unspecified (4) Diffuse large b-cell lymphoma, lymph nodes of multiple sites: Currently in remission Plan Other medical problems as outlined in past medical history Full code Lovenox will suffice for DVT prophylaxis Attestations 2 Medical Necessity Statement*: Needs continued hospital stay for IV antibiotics secondary to pneumonia with hypoxia Diagnoses Pneumonia J18.9 Laterality: left Lung location: lower lobe of lung Pneumonia type: due to unspecified organism Hypotension I95.9 Nausea & vomiting R11.2 Vomiting type: unspecified Diffuse large b-cell lymphoma, lymph nodes of multiple sites C83.38 Time Spent (min) 24
[2023-08-17] MEDS: vancomycin 1,250 MG/250 ML PIGGYBACK 250 MG IV (12:13)
[2023-08-17] MEDS: ondansetron 2 mg/ML SDV 2 mL 4 MG IVP (18:02)
[2023-08-18] VITALS (9 sets, daily range): BP systolic 118–158; BP diastolic 63–98; PULSE 63–88; RESP 16–18; TEMP 36.7–37.7; O2SAT 90–96
--- NOTE | 2023-08-18 05:00 | PC.NURSE ---
Oxygen desaturation: Patient o@ was at 85% and she was c/o shortness of breath after ambulating to the restroom and back. She states she wore her oxygen when she was up. Lung sounds unchanged since assessment earlier. Turned o2 to 4L and she slowly recovered to 91-92%.
--- NOTE | 2023-08-18 05:13 | XRR_ITS ---
PROCEDURE INFORMATION: Exam: XR Chest Exam date and time: 08/18/2023 5:20 AM Age: 78 years old Clinical indication: Dyspnea; Additional info: Short of breath, oxygen requirements increasing TECHNIQUE: Imaging protocol: Radiologic exam of the chest. Views: 1 view. COMPARISON: CT angio chest PE protcl [id number] 08/16/2023 10:25 AM FINDINGS: Lungs: Diffuse predominantly bilateral bibasilar patchy airspace infiltrates. Bilateral linear opacities are additionally appreciated. Pleural spaces: There is blunting of the bilateral costophrenic angles, [id number]-right. Heart/Mediastinum: There is mild increased prominence of the cardiomediastinal silhouette. Bones/joints: Diffuse osseous degenerative change of the visualized structures. XR/XR chest 1V portable [id number] IMPRESSION: Diffuse patchy airspace disease predominantly bibasilar with associated linear opacities at the lung bases. Bilateral pleural effusions, [id number]-right. Nonspecific, however given prominence of the cardiomediastinal silhouette, likely represents volume overload, less likely infection and aspiration. Correlate with physical examination and history.
[2023-08-18 05:37] LABS: Basophils % 0.1 %; Eosinophils # 0.1 10^3/uL (0.0-0.8); Eosinophils % 0.6 %; Hematocrit 31.2 % (36-47); Lymphocytes # 1.1 10^3/uL (0.8-4.8); Lymphocytes % 13.4 %; Mean Corpuscular HGB Conc 32.4 g/dL (30-55); Mean Corpuscular Hemoglobin 31.7 pg (27-33); Mean Corpuscular Volume 97.8 fl (85-98); Mean Platelet Volume 8.8 fL (7.4-10.4); Monocytes # 0.5 10^3/uL (0.2-0.9); Neutrophils # 6.53 10^3/uL (1.8-7.7); Neutrophils % 79.4 %; Nucleated Red Blood Cells % 0 %; Platelet Count 123 10^3/cmm (157-399); Red Blood Count 3.19 10^6/uL (3.85-5.65); Red Cell Distribution Width 13.6 % (12.1-15.1); White Blood Count 8.22 10^3/uL (3.29-11.43)
[2023-08-18] MEDS: piperacillin-tazobactam 3.375 GM in sodium chloride 0.9% (plus) 50 ML IV ×3 (05:49→22:28)
[2023-08-18 05:56] LABS: Anion Gap 13.4 (5-19); Blood Urea Nitrogen 9 mg/dL (8-23); Calcium 7.9 mg/dL (8.5-10.5); Carbon Dioxide 22 mmol/L (22-29); Chloride 110 mmol/L (98-107); Glucose 108 mg/dL (65-115); Osmolality Calculated 293 mOsm/kg (285-295); Potassium 3.4 mmol/L (3.5-5.1); Sodium 142 mmol/L (136-145)
[2023-08-18] MEDS: enoxaparin 40 mg/0.4 mL Syringe SUBCUT (07:42)
[2023-08-18] MEDS: potassium chloride ER 20 mEq Tablet 40 MEQ PO ×2 (07:42→12:01)
[2023-08-18] MEDS: FUROsemide 10 mg/mL SDV 4mL 40 MG IVP (07:42)
--- NOTE | 2023-08-18 09:48 | P.PN_ITS ---
Subjective 2 Subjective: Ira got significantly short of breath last night. She reports she is a little bit better this morning. Occasional cough. No vomiting. Oxygen has been able to be weaned to 4 L from 5 L. No chest discomfort. Medications: Reviewed: Yes Vitals/I&O/Wt Last Vital Signs Temp 98.0 F 08/18/23 07:18 Pulse 88 08/18/23 07:18 Resp 17 08/18/23 07:18 BP 132/75 08/18/23 07:18 Pulse Ox 96 08/18/23 07:18 O2 Del Method Nasal Cannula 08/18/23 07:18 O2 Flow Rate 5 08/18/23 07:18 08/17/23 08/18/23 08/18/23 22:59 06:59 14:59 Intake Total 290 / 1933.333 500 / 2433.333 360 / 360 Output Total 400 / 400 750 / 1150 800 / 800 Balance -110 / 1533.333 -250 / 1283.333 -440 / -440 Weight last 48 hrs Weight 69.598 kg Weight 70.307 kg Physical Exam 2 Narrative: General exam no distress, now afebrile Neck is supple Cardiovascular regular rate and rhythm without murmur Lungs some diminished breath sounds bilaterally Abdomen is soft Extremities no cyanosis, edema Data 08/18/23 05:29 08/18/23 05:29 Micro: Microbiology 08/17/23 15:30 Gram Stain - Final Sputum - Expectorated Sputum A&P Assessment and plan (1) Pneumonia: Patient currently being treated for pneumonia Continue vancomycin and Zosyn Blood cultures negative to date. Sputum culture pending. Bacterial antigens negative Respiratory panel negative MRSA PCR pending White blood cell count decreasing Still requiring oxygen. Somewhat fluid overloaded last night so Lasix 40 mg IV given today. CTA demonstrated bilateral lower lobe infiltrates, mucous plugging, small bilateral effusions and no pulmonary embolism Chest x-ray this morning demonstrated worsening pleural effusions bilaterally. This is most consistent with fluid overload, fluid being given for hypotension. CBC, CMP, magnesium Associated with hypoxia. Patient worsened overnight, with fluid overload. She is now requiring IV Lasix with close monitoring of electrolytes. A dose of IV Lasix was given this morning, and she will be reassessed this afternoon for repeat dose. Lasix is a potentially renal toxic medication needs to be monitored by electrolytes daily, which were ordered. Qualifiers: Laterality: left Lung location: lower lobe of lung Pneumonia type: due to unspecified organism Qualified Code(s): J18.9 - Pneumonia, unspecified organism (2) Hypotension: Resolved, secondary to pneumonia (3) Nausea & vomiting: Resolved Able to take p.o., hydrate p.o. Qualifiers: Vomiting type: unspecified Qualified Code(s): R11.2 - Nausea with vomiting, unspecified (4) Diffuse large b-cell lymphoma, lymph nodes of multiple sites: Currently in remission Plan Hypokalemia, supplement Other medical problems as outlined in past medical history Full code Lovenox will suffice for DVT prophylaxis Attestations 2 Medical Necessity Statement*: He continued hospitalization for IV antibiotics for pneumonia, and oxygen Diagnoses Pneumonia J18.9 Laterality: left Lung location: lower lobe of lung Pneumonia type: due to unspecified organism Hypotension I95.9 Nausea & vomiting R11.2 Vomiting type: unspecified Diffuse large b-cell lymphoma, lymph nodes of multiple sites C83.38 Time Spent (min) 24
--- NOTE | 2023-08-18 10:52 | PC.CHAP ---
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 [] Patient/Family/Request visit [] Outpatient visit [] Follow-up visit [] Physician referral [] Code/Alert [x] Routine visit [] Staff referral [] Actively dying [] Patient sleeping [] Family support [] [] Out of room [] Palliative care [] [x] Receiving care in room [] Pre-surgical visit [] Trauma [] Long length of stay [] ICU visit [] Other: Relational/Emotional Strength [x] Patient feels connected with others/family/visitors/staff [] Distress [] Loneliness/isolation [] Abandonment Spirituality of Patient [x] Person of Yuli [] Attends Spiritism of their Yuli [x] Believes in Prayer [] Reads Bible or Baptist materials [] There are Spiritual issues to be addressed Toxicologist Interventions [x] Prayer [x] Active listening [x] Non-anxious presence [x] Spiritual/emotional support [] Crisis/trauma care [x] Spiritual counseling [] Bereavement support [] Provided bereavement packet [] Provided Bible/devotional materials [] Provided toy/stuffed animal, coloring book to patient or family member [] Provided Communion [] Anointing/[place] [] Salvation [x] Completed spiritual assessment [] Other: Impact on Illness or Injury [] Angry [] Fearful [] Anxious [] Often cries [] Exhaustion [] Unable to work [] Unable to attend holiness [] Unable to walk/stand [] Unable to read [] Unable to drive [] Unable to eat/drink [] Unable to sleep [] Unable to be with family [] Patient intubated [] Other: Summary senior knowles had tests waiting on doctor before she can go home gegative feeling Time spent with patient 10 mins
[2023-08-18] MEDS: vancomycin 1,250 MG/250 ML PIGGYBACK 250 MG IV (12:00)
[2023-08-18] MEDS: FUROsemide 10 mg/mL SDV 2mL 20 MG IVP (17:18)
[2023-08-19] VITALS (8 sets, daily range): BP systolic 115–134; BP diastolic 67–74; PULSE 61–92; RESP 14–20; TEMP 36.5–37.2; O2SAT 90–94; BMI 23.3
[2023-08-19 05:50] LABS: Basophils % 0.2 %; Eosinophils # 0.1 10^3/uL (0.0-0.8); Eosinophils % 1.4 %; Hematocrit 33.8 % (36-47); Lymphocytes # 1.4 10^3/uL (0.8-4.8); Mean Corpuscular HGB Conc 32.2 g/dL (30-55); Mean Corpuscular Hemoglobin 30.9 pg (27-33); Mean Corpuscular Volume 95.8 fl (85-98); Mean Platelet Volume 9.1 fL (7.4-10.4); Monocytes # 0.5 10^3/uL (0.2-0.9); Monocytes % 8.2 %; Neutrophils # 4.32 10^3/uL (1.8-7.7); Neutrophils % 67.7 %; Nucleated Red Blood Cells % 0 %; Platelet Count 149 10^3/cmm (157-399); Red Blood Count 3.53 10^6/uL (3.85-5.65); Red Cell Distribution Width 13.3 % (12.1-15.1); White Blood Count 6.37 10^3/uL (3.29-11.43)
[2023-08-19 06:07] LABS: Alanine Aminotransferase 19 U/L (0-33); Albumin Level 3.3 g/dL (3.5-5.2); Alkaline Phosphatase 70 U/L (35-105); Anion Gap 11.6 (5-19); Aspartate Amino Transferase 16 U/L (0-32); Blood Urea Nitrogen 10 mg/dL (8-23); Calcium 8.6 mg/dL (8.5-10.5); Carbon Dioxide 30 mmol/L (22-29); Chloride 103 mmol/L (98-107); Globulin 2.7 g/dL (1.3-4.6); Glucose 104 mg/dL (65-115); Magnesium 1.7 mg/dL (1.7-2.3); Osmolality Calculated 291 mOsm/kg (285-295); Potassium 3.6 mmol/L (3.5-5.1); Sodium 141 mmol/L (136-145); Total Bilirubin 0.5 mg/dL (0.15-1.2)
[2023-08-19] MEDS: piperacillin-tazobactam 3.375 GM in sodium chloride 0.9% (plus) 50 ML IV ×2 (06:11→17:04)
--- NOTE | 2023-08-19 07:00 | XR_ITS ---
WS: [id number] XR chest 1V portable [id number] REASON FOR EXAM: follow up resp failure FINDINGS: There is central pulmonary vein congestion. There are reticular interstitial densities throughout the lower and mid lung watkins. There appears to be some resolution of the diffuse reticular interstitial lung opacities. Bilateral pleural effusions unchanged. Lower lobe atelectasis/airspace consolidation with left hemidiaphragm obscuration unchanged. No new findings. IMPRESSION: Partial resolution of lung abnormality abnormal chest otherwise stable.
--- NOTE | 2023-08-19 07:50 | US_ITS ---
WS: [id number] Ultrasound chest, bilateral. HISTORY: Evaluate pleural effusions. COMPARISON: Chest radiograph 08/19/[address] 08/16/2023 There is a small RIGHT pleural effusion. Atelectatic lung is noted floating within the effusion. The LEFT pleural effusion is slightly greater in size but still small. IMPRESSION: Bilateral small pleural effusions, LEFT slightly greater than RIGHT.
--- NOTE | 2023-08-19 10:05 | P.PN_ITS ---
Documented by User: MARY JO Lloyd STDERMA 08/19/23 10:35 Subjective 2 Subjective: Ira Frost is a 78-year-old female who was being seen for pneumonia of left lung. She reported chills last night and cold sweat, but is doing well today on 2 L of oxygen without shortness of breath, cough, lightheadedness or fever this morning. She has eaten well for breakfast today. She reports no pain, and has been wanting to get up and walk, but cannot do so due so without being taken off of the Oxygen attached to the wall. Her oxygen was removed to see how she would do for 3 to 5-minutes. She did well with pO2 of 90 to 91% on pulse ox. Medications: Reviewed: Yes Vitals/I&O/Wt Last Vital Signs Temp 97.7 F 08/19/23 08:00 Pulse 62 08/19/23 08:00 Resp 16 08/19/23 08:00 BP 134/74 08/19/23 08:00 Pulse Ox 93 08/19/23 08:00 O2 Del Method Nasal Cannula 08/19/23 08:00 O2 Flow Rate 1 08/19/23 08:00 08/18/23 08/19/23 08/19/23 22:59 06:59 14:59 Intake Total 50 / 950 50 / 1000 120 / 120 Output Total 1450 / 4450 100 / 4550 Balance -1400 / -3500 -50 / -3550 120 / 120 Weight last 48 hrs Weight 144 lb 11.2 oz Weight 153 lb 7 oz Physical Exam 2 Narrative: General alert and oriented to person place time and situation pleasant, slightly less alert off of oxygen HEENT normocephalic atraumatic EOMI PERRL Cardiac regular rate and rhythm normal heart sounds pulses 2+ throughout, no edema, no JVD Pulmonary breath sounds normal on right, breath sounds markedly decreased on the left and apex and medial and lateral bases Abdomen normal bowel sounds deferred Neuro no focal deficit, mentation normal Psych normal mood and affect Data 08/19/23 05:37 08/19/23 05:37 Other Labs: red blood cells 3.53, hematocrit 33.8, and hemoglobin 10.9 remain low but are slightly improved Platelets remain low 149,000, but are slightly improved Carbon dioxide high 30 Total protein 6.0 albumin 3.3 remain low, but slightly improved Micro: Microbiology 08/17/23 15:30 Gram Stain - Final Sputum - Expectorated Sputum Sputum Culture - Preliminary few gram-positive rods no white blood cells Scant normal mark present on day 1 A&P Assessment and plan (1) Pneumonia: Patient currently being treated for pneumonia Continue vancomycin and Zosyn Blood cultures negative to date. Sputum culture Few gram-positive rods no white blood cell, scant normal mark or present on day 1 Bacterial antigens negative Respiratory panel negative MRSA PCR pending White blood cell count decreasing and normal for 3 days, neutrophils decreasing normal for 2 days Patient is no longer fluid overloaded since Lasix 40 mg IV given last night We will try to discontinue oxygen today and see how the patient does There is no hypoxia off of O2, pO2 between 90-91% Discontinue Lasix CTA demonstrated bilateral lower lobe infiltrates, mucous plugging, small bilateral effusions and no pulmonary embolism CBC, CMP, magnesium Qualifiers: Laterality: left Lung location: lower lobe of lung Pneumonia type: due to unspecified organism Qualified Code(s): J18.9 - Pneumonia, unspecified organism (2) Hypotension: Resolved, secondary to pneumonia (3) Nausea & vomiting: Resolved Able to take p.o., hydrate p.o. Qualifiers: Vomiting type: unspecified Qualified Code(s): R11.2 - Nausea with vomiting, unspecified (4) Diffuse large b-cell lymphoma, lymph nodes of multiple sites: Currently in remission Plan Hypokalemia, supplement Other medical problems as outlined in past medical history Patient will be discontinued from oxygen today and see how she does Patient will get up and walk today with assistance from nurse Full code Lovenox will suffice for DVT prophylaxis Attestations 2 Medical Necessity Statement*: Patient needs continued hospital hospitalization to monitor for fever and continue to treat pneumonia. Coding Level of Care Code 30916 Diagnoses Pneumonia J18.9 Laterality: left Lung location: lower lobe of lung Pneumonia type: due to unspecified organism Hypotension I95.9 Nausea & vomiting R11.2 Vomiting type: unspecified Diffuse large b-cell lymphoma, lymph nodes of multiple sites C83.38 Time Spent (min) 24 Documented by User: Juve Bryan MD 08/19/23 12:23 Data 08/19/23 05:37 08/19/23 05:37 A&P Assessment and plan (1) Pneumonia: Patient currently being treated for pneumonia Continue vancomycin and Zosyn Blood cultures negative to date. Sputum culture Few gram-positive rods no white blood cell, scant normal mark or present on day 1 Bacterial antigens negative Respiratory panel negative MRSA PCR pending White blood cell count decreasing and normal for 3 days, neutrophils decreasing normal for 2 days Patient is no longer fluid overloaded since Lasix 40 mg IV given last night We will try to discontinue oxygen today and see how the patient does There is no hypoxia off of O2, pO2 between 90-91% Chest ultrasound today demonstrated small effusions bilaterally. At this point thoracentesis will not be done. 1 more dose of Lasix today. These effusions, secondary to fluid overload that occurred with significant volume needed to give for hypotension when she initially presented. CTA demonstrated bilateral lower lobe infiltrates, mucous plugging, small bilateral effusions and no pulmonary embolism CBC, BMP in the morning Suspect if she continues to improve likely discharge tomorrow. Qualifiers: Laterality: left Lung location: lower lobe of lung Pneumonia type: due to unspecified organism Qualified Code(s): J18.9 - Pneumonia, unspecified organism (2) Hypotension: (3) Nausea & vomiting: Qualifiers: Vomiting type: unspecified Qualified Code(s): R11.2 - Nausea with vomiting, unspecified (4) Diffuse large b-cell lymphoma, lymph nodes of multiple sites: Plan Hypokalemia, supplement Other medical problems as outlined in past medical history Patient will be discontinued from oxygen today and see how she does Patient will get up and walk today with assistance from nurse Full code Lovenox will suffice for DVT prophylaxis Probable discharge tomorrow if continues to improve. Diagnoses Pneumonia J18.9 Laterality: left Lung location: lower lobe of lung Pneumonia type: due to unspecified organism Hypotension I95.9 Nausea & vomiting R11.2 Vomiting type: unspecified Diffuse large b-cell lymphoma, lymph nodes of multiple sites C83.38 Time Spent (min) 24
[2023-08-19] MEDS: FUROsemide 10 mg/mL SDV 2mL 20 MG IVP (12:20)
[2023-08-19] MEDS: vancomycin 1,250 MG/250 ML PIGGYBACK 250 MG IV (12:21)
[2023-08-19] MEDS: vancomycin 1,500 MG/300 ML PIGGYBACK 200 MG IV (12:44)
[2023-08-19 14:05] LABS: Methicillin-Resist S.aureu PCR NOT DETECTED (NOT DETECTED)
[2023-08-19] MEDS: enoxaparin 40 mg/0.4 mL Syringe SUBCUT (17:04)
[2023-08-20] VITALS (7 sets, daily range): BP systolic 121–146; BP diastolic 72–89; PULSE 57–79; RESP 16–17; TEMP 36.7–37; O2SAT 90–94; BMI 23.3
[2023-08-20] MEDS: piperacillin-tazobactam 3.375 GM in sodium chloride 0.9% (plus) 50 ML IV ×2 (00:35→08:23)
[2023-08-20 04:20] LABS: Basophils % 0.2 %; Eosinophils # 0.1 10^3/uL (0.0-0.8); Eosinophils % 1.8 %; Lymphocytes # 1.4 10^3/uL (0.8-4.8); Lymphocytes % 28.3 %; Mean Platelet Volume 9.7 fL (7.4-10.4); Monocytes # 0.5 10^3/uL (0.2-0.9); Monocytes % 9.8 %; Neutrophils # 2.89 10^3/uL (1.8-7.7); Neutrophils % 59.3 %; Nucleated Red Blood Cells % 0 %; Platelet Count 180 10^3/cmm (157-399); Red Blood Count 3.61 10^6/uL (3.85-5.65); Red Cell Distribution Width 13.4 % (12.1-15.1); White Blood Count 4.88 10^3/uL (3.29-11.43)
[2023-08-20 04:44] LABS: Anion Gap 15.7 (5-19); Blood Urea Nitrogen 18 mg/dL (8-23); Carbon Dioxide 27 mmol/L (22-29); Chloride 105 mmol/L (98-107); Glucose 122 mg/dL (65-115); Osmolality Calculated 301 mOsm/kg (285-295); Potassium 3.7 mmol/L (3.5-5.1); Sodium 144 mmol/L (136-145)
[2023-08-20] MEDS: vancomycin 1,500 MG/300 ML PIGGYBACK 200 MG IV (12:24)
--- NOTE | 2023-08-20 12:48 | P.DS_ITS ---
Discharge Providers Date of Admission: 08/16/23 08:54 Date of Discharge: August 20, 2023 Attending Provider at Admission: Jose Up MD Attending Provider at Discharge: Francisco Blanco MD Primary Care Provider: Jaycee Reed MD Diagnoses at Discharge Discharge Diagnosis (1) Pneumonia: Status: Acute Qualifiers: Laterality: left Lung location: lower lobe of lung Pneumonia type: due to unspecified organism Qualified Code(s): J18.9 - Pneumonia, unspecified organism (2) Hypotension: Status: Acute (3) Nausea & vomiting: Status: Acute Qualifiers: Vomiting type: unspecified Qualified Code(s): R11.2 - Nausea with vomiting, unspecified (4) Diffuse large b-cell lymphoma, lymph nodes of multiple sites: Status: Acute Reason for Visit Reason for Visit: nausea, shaky Brief History: History as per HPI: Ira Frost is a 78 year old female with a past medical history significant for DLBCL and osteoarthritis who presents to the emergency department with shakiness, nausea, and diarrhea. Patient reports onset at 5 PM on Tuesday. Denies cough, or shortness of breath. She reported transient pleurisy on the left earlier in the night that has now resolved. In the ED, patient was found to have a fever with mildly elevated white count and lactic acid. She was on room air with SpO2 94 to 95%. Rapid flu and influenza were negative. She does report exposure to COVID 2 days ago. Chest x-ray showed left lower consolidation. She was treated with Zosyn and IVF. She reports she lives home alone and feels weak. A daughter from [place] is in the room. There is also a daughter who lives locally. Patient states she does not get either them sick so she does not want them to stay with her. Discussed with both the ED provider and the patient/family. She does not meet inpatient criteria. She can be placed in observation but she has crossed midnight so she may be discharged later today. Patient/family understand and agree to treatment plan. Hospital Course Hospital Course Patient was admitted under observation to the hospital further evaluation and management for possible left basilar community-acquired pneumonia. She was started on broad-spectrum antibiotics. During hospitalization patient developed sepsis with episode of hypotension requiring IV fluid boluses but never required vasopressors. Respiratory viral panel was negative. Her blood culture remain negative during hospitalization. Patient responded well to the treatment and has been on room air for the last 24 to 36 hours both at rest and on exertion. Patient's hemodynamics have remained stable. Patient has been complaining of weakness which has been ongoing for last few months for which further blood work including iron panel, TSH and vitamin B12 and A1c have been sent out. She has been discharged home in hemodynamically stable condition on oral Augmentin and Levaquin for next 5 days with advised to follow-up with a primary care provider within next 1 week. Home oxygen evaluation was done prior to discharge. Discharge plan discussed in detail with patient and caregiver at bedside. All the questions were answered. Physical Exam Narrative: General exam no distress, now afebrile Neck is supple Cardiovascular regular rate and rhythm without murmur Lungs some diminished breath sounds bilaterally Abdomen is soft Extremities no cyanosis, edema Discharge Data Studies Completed and Pending Completed Studies During Hospitalization Category Date Time Status CTA chest [CT angio chest PE protcl 65623] Routine Cat Scan 08/16/23 08:11 Completed CXRP [XR chest 1V portable [id number]] Stat Exams 08/18/23 05:13 Completed XR chest 1V portable [id number] Routine Exams 08/19/23 07:00 Completed XR chest 1V portable [id number] Stat Exams 08/15/23 22:52 [place] chest [id number] Routine Ultrasound 08/19/23 07:50 Completed Pending at discharge Category Date Time Status Blood Culture Stat Lab 08/16/23 00:59 Results Radiology Impressions Chest CTA 08/16/23 08:11 IMPRESSION: 1. Lingular and bilateral lower lobe consolidations, concerning for infection/aspiration. 2. Mediastinal lymphadenopathy, likely reactive. 3. Bronchial wall thickening and mucous plugging, as can be seen in the setting of bronchitis. 4. Small bilateral pleural effusions. Laboratory Results WBC 4.88 10^3/uL (3.29-11.43) 08/20/23 02:48 RBC 3.61 10^6/uL (3.85-5.65) L 08/20/23 02:48 Hgb 11.20 g/dL (11.27-16.99) L 08/20/23 02:48 Hct 35.0 % (36-47) L 08/20/23 02:48 MCV 97.0 fl (85-98) 08/20/23 02:48 MCH 31.0 pg (27-33) 08/20/23 02:48 MCHC 32.0 g/dL (30-55) 08/20/23 02:48 RDW 13.4 % (12.1-15.1) 08/20/23 02:48 Plt Count 180 10^3/cmm (157-399) 08/20/23 02:48 MPV 9.7 fL (7.4-10.4) 08/20/23 02:48 Neut % (Auto) 59.3 % 08/20/23 02:48 Lymph % (Auto) 28.3 % 08/20/23 02:48 [place] % (Auto) 9.8 % 08/20/23 02:48 Eos % (Auto) 1.8 % 08/20/23 02:48 Baso % (Auto) 0.2 % 08/20/23 02:48 Neut # (Auto) 2.89 10^3/uL (1.8-7.7) 08/20/23 02:48 Lymph # (Auto) 1.4 10^3/uL (0.8-4.8) 08/20/23 02:48 [place] # (Auto) 0.5 10^3/uL (0.2-0.9) 08/20/23 02:48 Eos # (Auto) 0.1 10^3/uL (0.0-0.8) 08/20/23 02:48 Baso # (Auto) 0.0 10^3/uL (0.0-0.1) 08/20/23 02:48 Nucleated RBC % (auto) 0 % 08/20/23 02:48 Nucleated RBCs # 0.0 /100WBC 08/20/23 02:48 Sodium 144 mmol/L (136-145) 08/20/23 02:48 Potassium 3.7 mmol/L (3.5-5.1) 08/20/23 02:48 Chloride 105 mmol/L (98-107) 08/20/23 02:48 Carbon Dioxide 27 mmol/L (22-29) 08/20/23 02:48 Anion Gap 15.7 (5-19) 08/20/23 02:48 BUN 18 mg/dL (8-23) 08/20/23 02:48 Creatinine 0.8 mg/dL (0.5-0.9) 08/20/23 02:48 GFR Calculation Not Reportable 08/20/23 02:48 Glucose 122 mg/dL (65-115) H 08/20/23 02:48 Calculated Osmolality 301 mOsm/kg (285-295) H 08/20/23 02:48 Lactic Acid 2.9 mmol/L (0.5-2.2) H 08/16/23 00:59 Lactic Acid (Sepsis) 1.6 mmol/L (0.5-2.2) 08/16/23 03:00 Calcium 9.0 mg/dL (8.5-10.5) 08/20/23 02:48 Magnesium 1.7 mg/dL (1.7-2.3) 08/19/23 05:37 Total Bilirubin 0.5 mg/dL (0.15-1.2) 08/19/23 05:37 AST 16 U/L (0-32) 08/19/23 05:37 ALT 19 U/L (0-33) 08/19/23 05:37 Alkaline Phosphatase 70 U/L (35-105) 08/19/23 05:37 Total Protein 6.0 g/dL (6.6-8.7) L 08/19/23 05:37 Albumin 3.3 g/dL (3.5-5.2) L 08/19/23 05:37 Globulin 2.7 g/dL (1.3-4.6) 08/19/23 05:37 Procalcitonin 0.11 ng/mL (0-0.5) 08/16/23 00:54 Urine Color Yellow (Yellow) 08/16/23 01:15 Urine Appearance Clear (CLEAR) 08/16/23 01:15 Urine pH 6 (5-7) 08/16/23 01:15 Ur Specific [place] 1.015 (1.005-1.030) 08/16/23 01:15 Urine Protein Neg (Negative) 08/16/23 01:15 Urine Glucose (UA) Norm (Normal) 08/16/23 01:15 Urine Ketones Negative (Negative) 08/16/23 01:15 Urine Blood Trace (Negative) H 08/16/23 01:15 Urine Nitrate Negative (Negative) 08/16/23 01:15 Urine Bilirubin Neg (Negative) 08/16/23 01:15 Urine Urobilinogen Neg mg/dL (Negative) 08/16/23 01:15 Ur Leukocyte Esterase Negative (Negative) 08/16/23 01:15 Urine RBC 0-4 /hpf (0-2) H 08/16/23 01:15 Urine WBC 0-4 /hpf (0-5) H 08/16/23 01:15 Ur Squamous Epith Cells None /hpf (0-5) 08/16/23 01:15 Amorphous Sediment Not Reportable 08/16/23 01:15 Urine Bacteria Trace /hpf (NONE) 08/16/23 01:15 Vancomycin Trough 8.0 ug/mL (10-15) L 08/19/23 11:26 Adenovirus (PCR) Not detected (NOT DETECT) 08/16/23 11:14 C. pneumoniae DNA (PCR) Not detected (NOT DETECT) 08/16/23 11:14 Coronavirus 229E (PCR) Not detected (NOT DETECT) 08/16/23 11:14 Human Metapneumovir PCR Not detected (NOT DETECT) 08/16/23 11:14 Influenza A (H1) PCR Not detected (NOT DETECT) 08/16/23 11:14 Influ A (H1/09) PCR Not detected (NOT DETECT) 08/16/23 11:14 Influenza A (H3) PCR Not detected (NOT DETECT) 08/16/23 11:14 Influenza Type A Ag negative (Negative) 08/15/23 23:35 Influenza Type A (PCR) Not detected (NOT DETECT) 08/16/23 11:14 Influenza Type B Ag negative (Negative) 08/15/23 23:35 Influenza Type B (PCR) Not detected (NOT DETECT) 08/16/23 11:14 M. pneumoniae (PCR) Not detected (NOT DETECT) 08/16/23 11:14 Parainfluenza 1 (PCR) Not detected (NOT DETECT) 08/16/23 11:14 Parainfluenza 2 (PCR) Not detected (NOT DETECT) 08/16/23 11:14 Parainfluenza 3 (PCR) Not detected (NOT DETECT) 08/16/23 11:14 Parainfluenza 4 (PCR) Not detected (NOT DETECT) 08/16/23 11:14 RSV Type A (PCR) Not detected (NOT DETECT) 08/16/23 11:14 RSV Type B (PCR) Not detected (NOT DETECT) 08/16/23 11:14 Entero/Rhino (PCR) Not detected (NOT DETECT) 08/16/23 11:14 SARS-CoV-2 (PCR) Not detected (NOT DETECT) 08/16/23 11:14 SARS-CoV-2 Ag (Rapid) negative (Negative) 08/15/23 23:35 MRSA (PCR) Not detected (NOT DETECTED) 08/16/23 12:20 Vitals Last Vital Signs Temp 98.0 F 08/20/23 11:01 Pulse 57 L 08/20/23 11:01 Resp 17 08/20/23 11:01 BP 123/74 08/20/23 11:01 Pulse Ox 90 08/20/23 11:01 O2 Del Method Room Air 08/20/23 11:01 O2 Flow Rate 1 08/19/23 08:00 Discharge Plan Discharge Patient Disposition: Home Health Service Condition: Stable Prescriptions: New amoxicillin-pot clavulanate 875-125 mg tablet 1 tab PO Q12H Qty: 10 0RF levofloxacin 750 mg tablet 750 mg PO Q24H 5 Days Qty: 5 0RF Continued multivitamin Tablet 2 tab PO TID ascorbic acid (vitamin C) [Vitamin C] 500 mg Tablet 1,000 mg PO TID cholecalciferol (vitamin D3) [Vitamin D3] 125 mcg (5,000 unit) Tablet 125 mcg PO DAILY Vitamin With Lots Of Herbs 2 tab PO TID vitamin E 670 mg (1,000 unit) Capsule 1 cap PO DAILY zinc acetate 50 mg (zinc) Capsule 50 mg PO DAILY omega-3 fatty acids 1,000 mg Capsule 2,000 mg PO TID Curcumin Caps 1 cap PO DAILY Discharge Orders: Discharge Order (Routine); Ordered 08/20/23 Ordered By: Francisco Blanco Referrals: [facility] [Outside] Jaycee Reed MD [Primary Care Provider] - 4-7 days Discharge Diet: Regular Discharge Activity: Resume usual activity and Increase activity as tolerated Patient Instructions: Amoxicillin/Clavulanate Potassium (By mouth), Levofloxacin (By mouth), Pneumonitis (DC), Opioid Safety Activity Restrictions/Additional Instructions: Please take Augmentin and Levaquin which are the antibiotics for next 5 days. Augmentin with twice daily and Levaquin be once daily. This follow-up with a primary care provider within next 1 week. Please make sure that you are maintaining your oral hydration with up to 2 L of liquid daily. Discharge Attestations Time Spent in Discharge Care*: greater than 30 min Specific Discharge Activities: educating patient, educating and/or supporting family/caregiver, discussing with pcp/other providers, discussing with correctional case manager/social workers/dc planners, documenting/other paperwork and evaluating patient/reviewing data Status at Discharge: Cognitive status at discharge: cognitively intact , Behavioral status at discharge: cooperative , Functional status at discharge: independent ambulation , Overall status at discharge: patient is back to baseline Quality Metrics Clinical Quality Measures [ No reported AMI, CVA or VTE this stay] Coding Level of Care Code 49904 Total time (in minutes) for Discharge: 60 Diagnoses Pneumonia J18.9 Laterality: left Lung location: lower lobe of lung Pneumonia type: due to unspecified organism Hypotension I95.9 Nausea & vomiting R11.2 Vomiting type: unspecified Diffuse large b-cell lymphoma, lymph nodes of multiple sites C83.38
[2023-08-20 13:41] LABS: Estmated Average Glucose 128; Hemoglobin A1C 6.1 % (4.0-6.0)
[2023-08-20 13:59] LABS: Chol HDL Ratio 3.51 mg/dL (0.0-4.40); Cholesterol 193 mg/dL (0-200); HDL Cholesterol 55 mg/dL (60-100); Iron 42 ug/dL (37-145); LDL Cholesterol Calculated 114 mg/dL (50-129); Percent Saturation 21.7 % (20-50); Total Iron Binding Capacity 193 mcg/dl; Triglycerides 120 mg/dL (0-150); Unsaturated Iron Binding 151 ug/dL (112-347); VLDL Cholestrol Calculation 24 mg/dL (0-30)
[2023-08-20 14:03] LABS: Vitamin B12 451 pg/mL (232-1245)
[2023-08-20 15:10] LABS: Free T4 Free Thyroxine 1.16 ng/dL (0.82-1.77); T3 Free 2.3 PG/ML (2.0-4.4)
== END 2023-08-20 15:31 | disposition home health service (06) | DRG 194 ==
LOC: ER 08-16 03:30 → MEDSURG 08-16 03:32
PROVIDERS: Internal Medicine; Admitting Provider Internal Medicine; Emergency Provider Emergency Medicine; PCP Family Medicine; Visit Provider Student in an Organized Health Care Education/Training Program
DX: J18.9 Pneumonia, unspecified organism (principal); E87.20 Acidosis, unspecified; Z20.822 Contact with and (suspected) exposure to COVID-19; M19.90 Unspecified osteoarthritis, unspecified site; I95.9 Hypotension, unspecified; R11.2 Nausea with vomiting, unspecified; R09.02 Hypoxemia; E87.6 Hypokalemia; Z85.72 Personal history of non-Hodgkin lymphomas
CPT/HCPCS: 36415; 71045; 71275; 76604; 80048; 80053; 80061; 80202; 81001; 82607; 83036; 83540; 83550; 83605; 83735; 84145; 84439; 84443; 84481; 85025; 86403; 87040; 87070; 87205; 87426; 87486; 87581; 87633; 87641; 87804; 94760; 96372; 96374; 96375; 99285; G0378; J0696; J1650; J1940; J2405; J2543; J3370; J7030; Q9967

== ENCOUNTER 2023-10-02 08:28 | Emergency (ER) | payer MEDICARE, OTHER, SELFPAY ==
[2023-10-02 08:50] VITALS: BP 138/77; PULSE 78; TEMP 36.3; O2SAT 99; BMI 22.6
[2023-10-02 09:06] VITALS: BP 132/82; PULSE 76; RESP 16; O2SAT 97
--- NOTE | 2023-10-02 09:10 | W.ED.ABDPA2 ---
HPI - Abdominal Pain General: Chief Complaint: Abdominal Pain Stated Complaint: trouble going to the bathroom Time Seen by Provider: 10/02/23 09:00 History of Present Illness: 78-year-old female presents emergency department for reported constipation. She says she has the urge to have a bowel movement but cannot get it to come out. She says she traveled to [place] and back on Tuesday and has changed her diet such that she has not been getting very much fiber the last few days due to her travels. She did not have anything at the house to use for constipation so she presented to Emergency. Denies abdominal pain, fevers, vomiting. Last bowel movement was sometime in the last 48 hours. Review of Systems General: Reports: 10 or more systems reviewed and unremarkable except in HPI and below PFSH ED PFSH: Medical History Nephrolithiasis Degenerative arthritis Non Hodgkin's lymphoma Transformed diffuse large B-cell lymphoma Surgical History History of local excision of skin lesion Benign lesion arm, cheek, and scalp History of thoracentesis 08/1999 History of tonsillectomy 1949 Family History Mother Stroke Other Dementia Diabetes Suicide Denies family history of CAD (coronary artery disease) Clotting disorder Hyperlipidemia Psychiatric illness Chronic kidney disease (CKD) Anesthesia complication Bleeding disorder Lung disease Cancer Hypertension Social History Smoking and tobacco/nicotine status: never used tobacco/nicotine Alcohol intake: never Physical Exam Const: COMMON NORMALS: no limitations, alert and well nourished EXAM LIMITATIONS: no altered mental status HENMT: COMMON NORMALS: normocephalic, atraumatic and external ears normal HEAD & SCALP: normocephalic and atraumatic EXTERNAL EAR: Yes external ears normal MOUTH: no muffled voice Eye: COMMON NORMALS: conjunctivae normal and no scleral icterus CONJUNCTIVA: Yes conjunctivae normal Neck/C-Spine: GENERAL: Yes normal visual inspection and Yes trachea midline Resp: COMMON NORMALS: normal respiratory effort and No use of accessory muscles Cardio: COMMON NORMALS: regular rate and regular rhythm RATE: regular rate RHYTHM: regular rhythm GI: COMMON NORMALS: Soft to palpation and non-tender INSPECTION: Yes normal to inspection AUSCULTATION: Yes normoactive bowel sounds PALPATION: Yes Soft to palpation, No Tenderness to palpation present (GI), No Guarding due to palpation present (GI), No Rigid due to palpation and No Palpable mass present Neuro: COMMON NORMALS: moves all extremities, no focal motor deficits and no sensory deficits noted SENSORIUM/ORIENTATION: Yes alert SPEECH: speech normal Psych: COMMON NORMALS: mental status grossly normal, Normal thought process present, cooperative, normal affect and speech normal SPEECH: Yes normal speech THOUGHT PROCESS: Normal thought process present Course Vital Signs: Vital signs: Vital Signs Temperature 97.4 F L 10/02/23 08:50 Pulse Rate 76 10/02/23 09:06 Respiratory Rate 16 10/02/23 09:06 Blood Pressure 132/82 10/02/23 09:06 Pulse Oximetry 97 10/02/23 09:06 Oxygen Delivery Me thod Room Air 10/02/23 09:06 MDM - Abdominal Pain Medical Decision Making Patient presents with constipation . She probably has stool in her rectal vault and due to her age likely has decreased rectal tone. Additionally, she has not been having her usual fiber intake because of travel. Were going to try her on some glycerin suppositories x 2 in the emergency department. These were provided to the patient. I am also going to provide her with prescription for enemas and MiraLAX/docusate sodium to use for intermittent constipation at home. Do not suspect acute abdomen or bowel obstruction at this time. No evidence of diverticulitis or proctitis. No radiology studies performed this visit Discharge Plan Discharge Condition: Stable Prescriptions: No Action multivitamin Tablet 2 tab PO TID ascorbic acid (vitamin C) [Vitamin C] 500 mg Tablet 1,000 mg PO TID cholecalciferol (vitamin D3) [Vitamin D3] 125 mcg (5,000 unit) Tablet 125 mcg PO DAILY Vitamin With Lots Of Herbs 2 tab PO TID vitamin E 670 mg (1,000 unit) Capsule 1 cap PO DAILY zinc acetate 50 mg (zinc) Capsule 50 mg PO DAILY omega-3 fatty acids 1,000 mg Capsule 2,000 mg PO TID Curcumin Caps 1 cap PO DAILY amoxicillin-pot clavulanate 875-125 mg tablet 1 tab PO Q12H Qty: 10 0RF Referrals: Jaycee Reed MD [Primary Care Provider] - Coding Level of Care Code ED Coffee Maker for Rem[facility] Orantes
--- NOTE | 2023-10-02 10:04 | PC.PHAR ---
pt states she takes care of her own medications-pt states she takes no prescription medications states just takes otc meds entered
[2023-10-02 10:14] VITALS: BP 113/76; PULSE 72; RESP 16; O2SAT 99
--- NOTE | 2023-10-02 10:14 | PC.NURSE ---
PATIENT ABLE TO HAVE SUCCESSFUL BOWEL MOVEMENT PRIOR TO DISCHARGE.
== END 2023-10-02 10:16 | disposition home or self-care (01) ==
PROVIDERS: Emergency Provider Emergency Medicine; PCP Family Medicine
DX: K59.00 Constipation, unspecified (principal); Z85.72 Personal history of non-Hodgkin lymphomas
CPT/HCPCS: 99284

== ENCOUNTER 2024-04-23 10:45 | Observation (INO) | payer MEDICARE, OTHER, SELFPAY ==
[2024-04-23] VITALS (29 sets, daily range): BP systolic 88–140; BP diastolic 52–93; PULSE 63–142; RESP 12–26; TEMP 36.3–36.8; O2SAT 94–99; BMI 21.7
--- NOTE | 2024-04-23 10:54 | ECG_ITS ---
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 Measurements Intervals [place] Rate: 161 P: 0 NC: 0 QRS: 50 QRSD: 114 T: 5 QT: 264 QTc: 432 Interpretive Statements ATRIAL FLUTTER/TACHYCARDIA WITH RAPID VENTRICULAR RESPONSE INCOMPLETE RIGHT BUNDLE BRANCH BLOCK [90+ ms QRS DURATION, TERMINAL R IN V1/V2, 40+ ms S IN I/aVL/V4/V5/V6] MODERATE ST DEPRESSION [0.05+ mV ST DEPRESSION] CRITICAL TEST RESULT Compared to ECG 03/04/2021 11:05:08 Incomplete right bundle-branch block now present ST (T wave) deviation now present Sinus bradycardia no longer present Electronically Signed On 04-25-2024 01:01:13 CDT by Bere Santos M.D. [id number]
--- NOTE | 2024-04-23 11:07 | ECG_ITS ---
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 Measurements Intervals [place] Rate: 94 P: 0 [place]: 0 QRS: 50 QRSD: 89 T: 67 QT: 325 QTc: 408 Interpretive Statements SINUS RHYTHM WITH PACs in bigeminal pattern Electronically Signed On 04-23-2024 14:06:53 CDT by Maximino Teejda M.D. [id number]
--- NOTE | 2024-04-23 11:29 | XRR_ITS ---
PROCEDURE INFORMATION: Exam: XR Chest Exam date and time: 04/23/2024 11:38 AM Age: 78 years old Clinical indication: Cough and dyspnea; Patient HX: HX of lymphoma; Additional info: Dyspnea/cough TECHNIQUE: Imaging protocol: Radiologic exam of the chest. Views: 1 view. COMPARISON: CR XR chest 2V* [id number] 12/23/2023 2:54 PM FINDINGS: Lungs: Lungs are hyperinflated. No consolidated infiltrates are appreciated. Pleural spaces: Unremarkable. No pleural effusion. No pneumothorax. Heart/Mediastinum: Unremarkable. No cardiomegaly. Bones/joints: Unremarkable. XR/XR chest 1V portable [id number] IMPRESSION: 1. Emphysema.
[2024-04-23 11:42] LABS: Basophils % 0.4 %; Eosinophils # 0.1 10^3/uL (0.0-0.8); Eosinophils % 1.5 %; Hematocrit 41.8 % (36-47); Lymphocytes # 1.6 10^3/uL (0.8-4.8); Lymphocytes % 32.5 %; Mean Corpuscular HGB Conc 31.3 g/dL (30-55); Mean Corpuscular Hemoglobin 30.4 pg (27-33); Mean Platelet Volume 9.1 fL (7.4-10.4); Monocytes # 0.4 10^3/uL (0.2-0.9); Monocytes % 7.7 %; Neutrophils # 2.76 10^3/uL (1.8-7.7); Neutrophils % 57.5 %; Nucleated Red Blood Cells % 0 %; Platelet Count 153 10^3/cmm (157-399); Red Blood Count 4.31 10^6/uL (3.85-5.65); Red Cell Distribution Width 13.6 % (12.1-15.1)
[2024-04-23 12:02] LABS: Troponin(5th) Baseline 16 ng/L (0-10)
[2024-04-23] MEDS: metoprolol tartrate 25 mg Tablet PO (12:03)
--- NOTE | 2024-04-23 12:06 | PC.PHAR ---
patient doesnt have any current non otc medications, she onlt takes otc herbs and vitamins
[2024-04-23 12:09] LABS: Alanine Aminotransferase 10 U/L (0-33); Albumin Level 3.8 g/dL (3.5-5.2); Alkaline Phosphatase 96 U/L (35-105); Aspartate Amino Transferase 14 U/L (0-32); Blood Urea Nitrogen 16 mg/dL (8-23); Calcium 8.7 mg/dL (8.5-10.5); Carbon Dioxide 25 mmol/L (22-29); Chloride 103 mmol/L (98-107); Globulin 2.7 g/dL (1.3-4.6); Glucose 160 mg/dL (65-115); NT Pro B Type Natriuretic Pept 496 pg/mL (0-450); Osmolality Calculated 291 mOsm/kg (285-295); Sodium 138 mmol/L (136-145); Thyroid Stimulating Hormone 3.54 uIU/mL (0.27-4.20); Total Bilirubin 0.3 mg/dL (0.15-1.2); Total Protein 6.5 g/dL (6.6-8.7)
--- NOTE | 2024-04-23 12:18 | USCV_ITS ---
Ira Frost Age: 78 Gender: F : 1945 Exam Date: 04/23/2024 14:32 Ordering Phys: Mega Bhandari DO Technologist: [place] [facility] [place]: ? mi BP: 137 / 75 HR: 65 Rhythm: Sinus Technical Quality: Adequate MEASUREMENTS (Male / Female) Normal Values 2D ECHO LV Diastolic Diameter PLAX 4.1 cm 4.2 - 5.9 / 3.9 - 5.3 cm IVS Diastolic Thickness 1.1 cm 0.6 - 1.0 / 0.6 - 0.9 cm IVS Systolic Thickness 1.7 cm LVPW Diastolic Thickness 1.1 cm 0.6 - 1.0 / 0.6 - 0.9 cm LVPW Systolic Thickness 1.3 cm LVOT Diameter 2.0 cm LV Ejection Fraction 2D Teich 70.9 % LV Ejection Fraction MOD 4C 67.0 % LV Ejection Fraction MOD 2C 72.1 % LV Ejection Fraction 2C AL 70.5 % LA Diameter 2.8 cm RA Systolic Volume 4C AL 46.4 ml RA Systolic Volume 4C MOD 43.5 ml LA Sys Volume AL 32.3 cm cubed LA Sys Volume Index AL 19.1 cm cubed/m squared Aorta at Sinotubular Diameter 2.3 cm IVC Diameter 1.3 cm M-MODE LA Ao Ratio MM 1.1 AV Cusp Separation MM 1.8 cm DOPPLER AV Peak Velocity 129.0 cm/s LVOT Peak Velocity 86.0 cm/s AV Area Cont Eq vti 2.4 cm squared AV Area Cont Eq pk 2.1 cm squared MV Peak Velocity 64.0 cm/s MV Area PHT 2.4 cm squared Mitral E to A Ratio 1.1 TV Peak Velocity 167.5 cm/s TR Peak Velocity 274.0 cm/s TR Peak Gradient 30.0 mmHg TV Peak E Velocity 63.0 cm/s Right Atrial Pressure 3.0 mmHg Pulmonary Artery Systolic Pressu 33.0 mmHg PV Peak Velocity 79.0 cm/s FINDINGS Left Ventricle Normal left ventricular size and systolic function, EF of 67%.No regional wall motion abnormalities. Right Ventricle The right ventricle is normal in size and function. Right Atrium The right atrium is normal in size. Left Atrium The left atrium is normal in size. Mitral Valve Mild mitral valve regurgitation. Aortic Valve Minimally thickened aortic valve.trace to mild aortic valve regurgitation. Tricuspid Valve Estimated pulmonary artery peak systolic pressure 33 mmHg.Trace tricuspid valve regurgitation. Pulmonic Valve Mild pulmonary valve regurgitation. Pericardium No pericardial effusion. Aorta Normal aortic annulus size. IVC Normal inferior vena cava. CONCLUSIONS Normal left ventricular size and systolic function, EF of 67%.No regional wall motion abnormalities. Mild mitral valve regurgitation. Estimated pulmonary artery peak systolic pressure 33 mmHg.Trace tricuspid valve regurgitation. Mild pulmonary valve regurgitation. There is no pericardial effusion. There are no intracardiac masses. Compared to the study from 04/28/2017, there may not be a significant change Dr Bere Santos MD FAC (Electronically Signed) Final Date: 24 April 2024 13:34 S
--- NOTE | 2024-04-23 13:12 | PM.HP ---
Providers/Chief Complaint Admitting Physician: Kaia Burgess MD Primary Care Provider: Jaycee Reed MD Chief Complaint: High HR sent from Dr Arce History of Present Illness Ira Frost is a 78 year old female presenting from [facility] with tachycardic irregular heart rhythm. She reported feeling unwell starting yesterday, with what she believed to be a fever. She noted her usual temperature is 97?F, but yesterday it aurea to 99?F. She experienced skin sensitivity typical of a fever and general malaise, which led her to believe she might be developing pneumonia, similar to an incident earlier this year. However, at the walk-in clinic she was found to have atrial fibrillation with rapid ventricular response and was directed to the emergency room for further evaluation and management. Yesterday she had a fluttery sensation in the chest noted throughout the day. Her chest felt a bit unusual but denies any actual chest pain. No reports of any runny nose, sore throat, cough, difficulty breathing or other respiratory symptoms. No GI complaints. No headache. She took some extra vitamin C and other vitamins as she usually does when she feels like she might be getting ill and often is better the next day. She did not feel any better this morning prompting her visit to [facility]. They are her EKG showed heart rate in the 140s to 160s. On arrival to the emergency room, EKG showed atrial fibrillation with heart rate at 94. Subsequent EKG showed spontaneous conversion to sinus rhythm in the 60s. Baseline troponin was 16. proBNP minimally elevated for her age at 496, blood glucose was found to be 160 but electrolytes/chemistries were otherwise unremarkable. CBC also unremarkable. TSH was normal at 3.54. Mrs. Frost is generally healthy, without a history of hypertension, diabetes, cardiovascular disease, stroke or kidney disease, and does not take prescription medications regularly. Instead, she relies on vitamins. She has been out of her fish oil lately but otherwise taking them as prescribed. She has a brother with a known history of atrial fibrillation who has undergone ablation, though he reportedly does not suffer from any additional cardiac issues. In talking with her, I did learned that she has recently had a long trip to [place] to see the [facility], returning last Tuesday. She denies any pain in her legs or swelling. No pleuritic pain or other obvious symptoms of blood clot. While the patient?s rhythm returned to normal in the ER, the decision has been made for overnight monitoring and medication initiation to prevent further episodes and potential clot formation arising from atrial fibrillation. She is quite symptomatic when in atrial fibrillation with rapid ventricular response and lives alone. Review of Systems General: Reports: Other (ROS as per HPI or as otherwise noted here) Narrative: - Cardiovascular: Reports fluttery sensation in the chest. Denies chest pain or pressure. No recent dizziness. - Gastrointestinal: Denies nausea, vomiting, diarrhea or abdominal pain. - Respiratory: Denies shortness of breath, cough, or runny nose. No pleuritic pain. - Musculoskeletal: Denies leg pain or swelling. No longer having issues with Jara's Cyst right knee. Arthritis okay. - Neurological: Denies weakness or neurological symptoms. No falls. - Integumentary: Reports skin sensitivity associated with fever. No rashes or sores. - Hematological: No bleeding reported. Medications/Allergies Home Medications Medication Instructions Recorded Confirmed Last Taken Type Vitamin With Lots Of Herbs 2 tab PO TID 03/04/21 04/23/24 04/22/24 History ascorbic acid (vitamin C) 500 mg 1,000 mg PO TID 03/04/21 04/23/24 04/22/24 History tablet (Vitamin C) cholecalciferol (vitamin D3) 125 125 mcg PO DAILY 03/04/21 04/23/24 04/22/24 History mcg (5,000 unit) tablet (Vitamin D3) multivitamin 2 tab PO TID 03/04/21 04/23/24 04/22/24 History Curcumin Caps 1 cap PO DAILY 08/16/23 04/23/24 04/22/24 History omega-3 fatty acids 1,000 mg 2,000 mg PO TID 08/16/23 04/23/24 04/22/24 History capsule vitamin E 670 mg (1,000 unit) 1 cap PO DAILY 08/16/23 04/23/24 04/22/24 History capsule zinc acetate 50 mg (zinc) capsule 50 mg PO DAILY 08/16/23 04/23/24 04/22/24 History glycerin (adult) 1 supp [place] BID PRN constipation #12 10/02/23 04/23/24 04/22/24 Rx ea magnesium oxide 400 mg PO BID 10/02/23 04/23/24 04/22/24 History Allergies Allergy/AdvReac Type Severity Reaction Status Date / Time meperidine [From Demerol] Allergy Unknown Verified 04/23/24 11:05 PFSH Acute PFSH: Medical History (Updated 04/23/24 @ 14:39 by Kaia Burgess MD) History of goiter details unknown, age 15, treated with unknown medication Synovial cyst of popliteal space [Jara], right knee no longer an issue Pneumonia 08/2023 Port-A-Cath in place Removed in 01/2020 Nephrolithiasis Degenerative arthritis Non Hodgkin's lymphoma 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 Treated with CVP in 1999. In 2016, after transformation to DLBCL, treated with R-CHOP in 2016 followed by BEAM conditioning and autologous stem cell transplant in 2016. Expectant management in 07/2022. Surgical History (Updated 04/23/24 @ 14:24 by Kaia Burgess MD) History of cataract surgery Bilateral History of local excision of skin lesion Benign lesion arm, cheek, and scalp History of thoracentesis 08/1999 History of tonsillectomy 1949 Family History Mother Stroke Other Dementia Diabetes Suicide Denies family history of CAD (coronary artery disease) Clotting disorder Hyperlipidemia Psychiatric illness Chronic kidney disease (CKD) Anesthesia complication Bleeding disorder Lung disease Cancer Hypertension Social History (Updated 04/23/24 @ 14:24 by Kaia Burgess MD) Smoking and tobacco/nicotine status: never used tobacco/nicotine Alcohol intake: never Additional social history: family nearby Household members: none Vitals/I&O/Wt Last Vital Signs Temp 97.3 F L 04/23/24 11:02 Pulse 89 04/23/24 11:42 Resp 16 04/23/24 11:42 BP 110/75 04/23/24 11:42 Pulse Ox 96 04/23/24 11:42 O2 Del Method Room Air 04/23/24 11:42 Weight last 48 hrs Weight 61.235 kg Physical Exam Narrative: Constitutional: Awake and alert, cooperative HEENT: Normocephalic, atraumatic, pupils are equally reactive, nasopharynx is clear, oropharynx with moist mucous membranes Neck: Supple Respiratory: Clear to auscultation bilaterally without any rales rhonchi or wheezes noted Cardiovascular: Currently in sinus rhythm. No murmurs. No jugular venous distention Abdomen: Soft, nontender, nondistended with positive bowel sounds Extremities: No pitting edema, no acute synovitis. No calf tenderness. Skin: Dry, no acute rashes or bruises noted Neuro: Speech clear, face symmetric, moves all extremities Psych: Normal affect, oriented x3 Data 04/23/24 11:35 04/23/24 11:35 Other Labs: Radiology Impressions Chest X-Ray 04/23/24 11:29 IMPRESSION: 1. Emphysema. Laboratory Results WBC 4.80 10^3/uL (3.29-11.43) 04/23/24 11:35 RBC 4.31 10^6/uL (3.85-5.65) 04/23/24 11:35 Hgb 13.10 g/dL (11.27-16.99) 04/23/24 11:35 Hct 41.8 % (36-47) 04/23/24 11:35 MCV 97.0 fl (85-98) 04/23/24 11:35 MCH 30.4 pg (27-33) 04/23/24 11:35 MCHC 31.3 g/dL (30-55) 04/23/24 11:35 RDW 13.6 % (12.1-15.1) 04/23/24 11:35 Plt Count 153 10^3/cmm (157-399) L 04/23/24 11:35 MPV 9.1 fL (7.4-10.4) 04/23/24 11:35 Neut % (Auto) 57.5 % 04/23/24 11:35 Lymph % (Auto) 32.5 % 04/23/24 11:35 [place] % (Auto) 7.7 % 04/23/24 11:35 Eos % (Auto) 1.5 % 04/23/24 11:35 Baso % (Auto) 0.4 % 04/23/24 11:35 Neut # (Auto) 2.76 10^3/uL (1.8-7.7) 04/23/24 11:35 Lymph # (Auto) 1.6 10^3/uL (0.8-4.8) 04/23/24 11:35 [place] # (Auto) 0.4 10^3/uL (0.2-0.9) 04/23/24 11:35 Eos # (Auto) 0.1 10^3/uL (0.0-0.8) 04/23/24 11:35 Baso # (Auto) 0.0 10^3/uL (0.0-0.1) 04/23/24 11:35 Nucleated RBC % (auto) 0 % 04/23/24 11:35 Nucleated RBCs # 0.0 /100WBC 04/23/24 11:35 Sodium 138 mmol/L (136-145) 04/23/24 11:35 Potassium 4.0 mmol/L (3.5-5.1) 04/23/24 11:35 Chloride 103 mmol/L (98-107) 04/23/24 11:35 Carbon Dioxide 25 mmol/L (22-29) 04/23/24 11:35 Anion Gap 14.0 (5-19) 04/23/24 11:35 BUN 16 mg/dL (8-23) 04/23/24 11:35 Creatinine 0.7 mg/dL (0.5-0.9) 04/23/24 11:35 GFR Calculation Not Reportable 04/23/24 11:35 Glucose 160 mg/dL (65-115) H 04/23/24 11:35 Calculated Osmolality 291 mOsm/kg (285-295) 04/23/24 11:35 Calcium 8.7 mg/dL (8.5-10.5) 04/23/24 11:35 Total Bilirubin 0.3 mg/dL (0.15-1.2) 04/23/24 11:35 AST 14 U/L (0-32) 04/23/24 11:35 ALT 10 U/L (0-33) 04/23/24 11:35 Alkaline Phosphatase 96 U/L (35-105) 04/23/24 11:35 Troponin T Baseline 16 ng/L (0-10) H 04/23/24 11:35 NT-Pro-B Natriuret Pep 496 pg/mL (0-450) H 04/23/24 11:35 Total Protein 6.5 g/dL (6.6-8.7) L 04/23/24 11:35 Albumin 3.8 g/dL (3.5-5.2) 04/23/24 11:35 Globulin 2.7 g/dL (1.3-4.6) 04/23/24 11:35 TSH 3.54 uIU/mL (0.27-4.20) 04/23/24 11:35 A&P Assessment and plan (1) New onset atrial fibrillation: The patient's atrial fibrillation was identified at [facility] and confirmed on arrival to ED. She has converted to sinus rhythm spontaneously. Currently would identify this as paroxysmal atrial fibrillation, likely first occurrence yesterday based on available history. She does have a family history with a brother who has atrial fibrillation requiring ablation. To prevent recurrence and manage heart rate, metoprolol will be initiated at lower dosage due to a history of occasional dizziness and independent lifestyle. Reviewed with her monitoring blood pressures, being careful with position changes and other potential effects of medication. To mitigate stroke risk, given a CHADS2-Vasc score of 3, will initiate anticoagulation with Eliquis. Reviewed with her that this is a blood thinner and the benefit is decrease risk of stroke should she have recurring episodes of atrial fibrillation. The patient will remain under overnight observational monitoring and undergo echocardiography for further assessment. Serial cardiac enzymes will also be assessed. Given recent prolonged travel will also check D-dimer. She has normal oxygen saturation on room air and no lower extremity edema or calf tenderness but given history of lymphoma is at an increased risk of thromboembolic event. Platelet count today very slightly low though this has been noted previously including earlier this year. (2) Subjective fever: Subjective low grade fever. No acute infectious process is currently identified, but arrhythmia could be the result of an infectious process. Denies weight changes and night sweats which might be a harbinger of B symptoms. Continued monitoring of vitals and symptomatology during hospital stay is planned. (3) Elevated blood sugar: Without a history of diabetes mellitus. Hemoglobin A1c in August this year was 6.1. Will check hemoglobin A1c along with lipid panel. (4) Diffuse large b-cell lymphoma, lymph nodes of multiple sites: Chronic diagnosis. In remission since completing extensive treatment regimen in 2017. For expectant management only currently with no scheduled follow-up to oncology. Plan VTE prophylaxis: Eliquis initiated secondary to atrial fibrillation, new diagnosis, likely intermittent Antibiotics: None Pending studies: Echocardiogram, serial cardiac enzymes, D-dimer Telemetry: Ordered secondary to arrhythmia at presentation Farris: not currently indicated Line(s): peripheral IVs Disposition plan: Home with outpatient follow up to primary care provider anticipated with new prescriptions for metoprolol and Eliquis. Code Status: Full Code Supportive care otherwise Findings, concerns and plans were discussed with patient and she was given an opportunity to ask questions Attestations Medical Necessity Statement*: Currently anticipate a stay less than two midnights. The decision-making process for this 78-year-old female centered around her confirmed atrial fibrillation and its potential systemic implications. After initial EKG confirmation of an irregular, rapid rhythm which resolved in situ, a cautious approach involving rate control and stroke prophylaxis with medication was discussed. Given her normal baseline blood pressure, she will begin a conservative dosage of metoprolol to avoid hypotension and dizziness, given her independence and recent travel activity. The CHADS score indicates a requirement for oral anticoagulation, justified by age-related risk factors for stroke. The overarching goal is to prevent further atrial fibrillation episodes and associated complications while ensuring safe discharge planning conditioned on stable rhythm and vitals. Additional tests will assess hemodynamic status, looking for underlying thromboembolic disease, given recent long-distance travel, with findings aiding comprehensive treatment planning. Diagnoses New onset atrial fibrillation I48.91 Subjective fever R50.9 Elevated blood sugar R73.9 Diffuse large b-cell lymphoma, lymph nodes of multiple sites C83.38
--- NOTE | 2024-04-23 13:30 | ECG_ITS ---
[facility] Test Date: 2024-04-23 Pat Name: Ira Frost Department: Room: Gender: Female Reconciler: : 1945 Requested By: Mega Magdaleno Order Number: [id number] Carter MD: Maximino Tejeda M.D. Measurements Intervals [place] Rate: 64 P: 70 NH: 140 QRS: 66 QRSD: 87 T: 65 QT: 375 QTc: 388 Interpretive Statements SINUS RHYTHM Compared to ECG 04/23/2024 11:07:23 Atrial fibrillation no longer present Electronically Signed On 04-23-2024 14:13:17 CDT by Maximino Tejeda M.D. [email or web address]
--- NOTE | 2024-04-23 13:31 | ED_ITS ---
HPI - Arrhythmia/Palpitations 2 General: Chief Complaint: Arrhythmia/Palpitations Stated Complaint: High HR sent from Dr Arce Time Seen by Provider: 04/23/24 11:03 History of Present Illness: 78-year-old female presents to the [facility] ency room with complaint of palpitations generally not feeling well poor exercise tolerance mild shortness of breath with exertion no orthopnea. She has not had any significant chest pain. Patient had a stress test in March 2021. Which was read as normal. She has a history of B-cell lymphoma. She is being monitored for this now. No recent fever sweats chills no significant chest pain or shortness of breath or cough Related Data Home Medications Medication Instructions Recorded Confirmed Vitamin With Lots Of Herbs 2 tab PO TID 03/04/21 04/23/24 ascorbic acid (vitamin C) 500 mg 1,000 mg PO TID 03/04/21 04/23/24 tablet (Vitamin C) cholecalciferol (vitamin D3) 125 125 mcg PO DAILY 03/04/21 04/23/24 mcg (5,000 unit) tablet (Vitamin D3) multivitamin 2 tab PO TID 03/04/21 04/23/24 Curcumin Caps 1 cap PO DAILY 08/16/23 04/23/24 omega-3 fatty acids 1,000 mg 2,000 mg PO TID 08/16/23 04/23/24 capsule vitamin E 670 mg (1,000 unit) 1 cap PO DAILY 08/16/23 04/23/24 capsule zinc acetate 50 mg (zinc) capsule 50 mg PO DAILY 08/16/23 04/23/24 magnesium oxide 400 mg PO BID 10/02/23 04/23/24 Previous Rx's Medication Instructions Recorded glycerin (adult) 1 supp [place] BID PRN constipation #12 10/02/23 ea Allergies Allergy/AdvReac Type Severity Reaction Status Date / Time meperidine [From Demerol] Allergy Unknown Verified 04/23/24 11:05 Review of Systems 2 Const: Denies: fever(s) or chills Card: Reports: palpitations, irregular heart rhythm and swelling of feet/ankles; Denies: chest pain Resp: Reports: dyspnea GI: Denies: abdominal pain : Denies: dysuria, urinary frequency or urinary urgency Musc: Denies: neck pain or back pain Skin/Breast: Denies: rash PFSH ED 2 PFSH: Medical History Pneumonia 08/2023 Port-A-Cath in place Removed in 01/2020 Nephrolithiasis Degenerative arthritis Non Hodgkin's lymphoma 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 Treated with CVP in 1999. In 2017, after transformation to DLBCL, treated with R-CHOP in 2017 followed by BEAM conditioning and autologous stem cell transplant in 2016. Expectant management in 07/2022. Surgical History History of local excision of skin lesion Benign lesion arm, cheek, and scalp History of thoracentesis 08/1999 History of tonsillectomy 1949 Family History Mother Stroke Other Dementia Diabetes Suicide Denies family history of CAD (coronary artery disease) Clotting disorder Hyperlipidemia Psychiatric illness Chronic kidney disease (CKD) Anesthesia complication Bleeding disorder Lung disease Cancer Hypertension Social History Smoking and tobacco/nicotine status: never used tobacco/nicotine Alcohol intake: never Physical Exam 2 Const: GENERAL APPEARANCE: cooperative ORIENTATION/CONSCIOUSNESS: Yes awake, Yes oriented to person, Yes oriented to place and Yes oriented to time HENMT: COMMON NORMALS: normocephalic, atraumatic and hearing grossly normal bilaterally HEAD & SCALP: normocephalic and atraumatic Resp: COMMON NORMALS: normal respiratory effort, No retractions, No use of accessory muscles and clear to auscultation bilaterally AUSCULTATION: clear to auscultation bilaterally Cardio: COMMON NORMALS: No murmurs present (Cardio) RATE: tachycardic R HYTHM: abnormal rhythm irregularly irregular GI: COMMON NORMALS: Soft to palpation and No hepatosplenomegaly present A USCULTATION: Yes normoactive bowel sounds PALPATION: Yes Soft to palpation, No Tenderness to palpation present (GI), No Guarding due to palpation present (GI) and Yes No hepatosplenomegaly present Extremity: COMMON NORMALS: normal to inspection, capillary refill normal, no clubbing, cyanosis or edema, no calf tenderness and no pedal edema Neuro: SENSORIUM/ORIENTATION: Yes oriented to person, Yes oriented to place and Yes oriented to time Skin: COMMON NORMALS: no rashes or lesions noted GENERAL SKIN EXAM: no rashes or lesions noted Course 2 Vital Signs: Vital signs: Vital Signs Temperature 97.3 F L 04/23/24 11:02 Pulse Rate 89 04/23/24 11:42 Respiratory Rate 16 04/23/24 11:42 Blood Pressure 110/75 04/23/24 11:42 Pulse Oximetry 96 04/23/24 11:42 Oxygen Delivery Me thod Room Air 04/23/24 11:42 MDM - Arrhythmia/Palpitations Medical Decision Making Patient presents emergency room with a rapid heart rate initially in triage she had a rate of 161 machine the patient was down to around 100 but she was still irregularly irregular shortly after my initial contact with her she converted back to a normal sinus rhythm repeat EKG confirmed it. She is feeling a little bit better. She does not look as if she has had any decompensation. Laboratory tests are unremarkable will admit the patient for further evaluation initiation of appropriate medications for rate control consideration of anticoagulation. Discussed with hospitalist orders written Medical Records I reviewed the patient's medical records. Lab Data I reviewed the patient's lab results. 04/23/24 11:35 04/23/24 11:35 Radiology Impressions Chest X-Ray 04/23/24 11:29 IMPRESSION: 1. Emphysema. Laboratory Results WBC 4.80 10^3/uL (3.29-11.43) 04/23/24 11:35 RBC 4.31 10^6/uL (3.85-5.65) 04/23/24 11:35 Hgb 13.10 g/dL (11.27-16.99) 04/23/24 11:35 Hct 41.8 % (36-47) 04/23/24 11:35 MCV 97.0 fl (85-98) 04/23/24 11:35 MCH 30.4 pg (27-33) 04/23/24 11:35 MCHC 31.3 g/dL (30-55) 04/23/24 11:35 RDW 13.6 % (12.1-15.1) 04/23/24 11:35 Plt Count 153 10^3/cmm (157-399) L 04/23/24 11:35 MPV 9.1 fL (7.4-10.4) 04/23/24 11:35 Neut % (Auto) 57.5 % 04/23/24 11:35 Lymph % (Auto) 32.5 % 04/23/24 11:35 [place] % (Auto) 7.7 % 04/23/24 11:35 Eos % (Auto) 1.5 % 04/23/24 11:35 Baso % (Auto) 0.4 % 04/23/24 11:35 Neut # (Auto) 2.76 10^3/uL (1.8-7.7) 04/23/24 11:35 Lymph # (Auto) 1.6 10^3/uL (0.8-4.8) 04/23/24 11:35 [place] # (Auto) 0.4 10^3/uL (0.2-0.9) 04/23/24 11:35 Eos # (Auto) 0.1 10^3/uL (0.0-0.8) 04/23/24 11:35 Baso # (Auto) 0.0 10^3/uL (0.0-0.1) 04/23/24 11:35 Nucleated RBC % (auto) 0 % 04/23/24 11:35 Nucleated RBCs # 0.0 /100WBC 04/23/24 11:35 Sodium 138 mmol/L (136-145) 04/23/24 11:35 Potassium 4.0 mmol/L (3.5-5.1) 04/23/24 11:35 Chloride 103 mmol/L (98-107) 04/23/24 11:35 Carbon Dioxide 25 mmol/L (22-29) 04/23/24 11:35 Anion Gap 14.0 (5-19) 04/23/24 11:35 BUN 16 mg/dL (8-23) 04/23/24 11:35 Creatinine 0.7 mg/dL (0.5-0.9) 04/23/24 11:35 GFR Calculation Not Reportable 04/23/24 11:35 Glucose 160 mg/dL (65-115) H 04/23/24 11:35 Calculated Osmolality 291 mOsm/kg (285-295) 04/23/24 11:35 Calcium 8.7 mg/dL (8.5-10.5) 04/23/24 11:35 Total Bilirubin 0.3 mg/dL (0.15-1.2) 04/23/24 11:35 AST 14 U/L (0-32) 04/23/24 11:35 ALT 10 U/L (0-33) 04/23/24 11:35 Alkaline Phosphatase 96 U/L (35-105) 04/23/24 11:35 Troponin T Baseline 16 ng/L (0-10) H 04/23/24 11:35 NT-Pro-B Natriuret Pep 496 pg/mL (0-450) H 04/23/24 11:35 Total Protein 6.5 g/dL (6.6-8.7) L 04/23/24 11:35 Albumin 3.8 g/dL (3.5-5.2) 04/23/24 11:35 Globulin 2.7 g/dL (1.3-4.6) 04/23/24 11:35 TSH 3.54 uIU/mL (0.27-4.20) 04/23/24 11:35 All radiology interpretation(s) finalized by discharge Discharge Plan Discharge Patient Disposition: Admitted As Inpatient Clinical Impression: New onset atrial fibrillation, Diffuse large b-cell lymphoma, lymph nodes of multiple sites Condition: Stable Prescriptions: No Action multivitamin Tablet 2 tab PO TID ascorbic acid (vitamin C) [Vitamin C] 500 mg Tablet 1,000 mg PO TID cholecalciferol (vitamin D3) [Vitamin D3] 125 mcg (5,000 unit) Tablet 125 mcg PO DAILY Vitamin With Lots Of Herbs 2 tab PO TID vitamin E 670 mg (1,000 unit) Capsule 1 cap PO DAILY zinc acetate 50 mg (zinc) Capsule 50 mg PO DAILY omega-3 fatty acids 1,000 mg Capsule 2,000 mg PO TID Curcumin Caps 1 cap PO DAILY glycerin (adult) Suppository 1 supp [place] BID PRN (Reason: constipation) Qty: 12 0RF magnesium oxide 400 mg magnesium Tablet 400 mg PO BID Referrals: Jaycee Reed MD [Primary Care Provider] - Coding Level of Care Code ED Facilities Engineering Manager for [facility]
[2024-04-23 13:47] LABS: Bilirubin Urine Negative (Negative); Blood Urine Negative (Negative); Glucose Urine UA Negative (Normal); Ketones Urine Negative (Negative); Leukocyte Esterase Urine 1+ (Negative); Nitrate Urine Negative (Negative); Protein Urine Negative (Negative); Specific Gravity, Urine 1.005 (1.005-1.030); Urine Appearance Clear (CLEAR); Urine Color Yellow (Yellow); Urobilinogen Urine 0.2 mg/dL (Negative)
[2024-04-23 13:50] LABS: Add Urine Microscopic? YES; Bacteria Urine None Seen /hpf; Hyaline Casts Urine 1.21 /lpf; RBC Urine 0-2 /hpf (0-2); Squamous Epithelial Cell Urine 0-5 /hpf (0-5); WBC Urine 0-5 /hpf (0-5)
[2024-04-23 14:00] LABS: Add Urine Culture? No
[2024-04-23 14:28] LABS: Troponin 5 2HR 18.88 ng/L (0-10); Troponin 5 2HR Delta 2.88 ABS# (0-10)
--- NOTE | 2024-04-23 14:55 | PC.NURSE ---
pt arrived on the floor at approx 1430 and hooked up to telemetry. Telemetry shoes a heart rate of 63 and in sinus rhythm. Blood pressure is 135/75 and resp is 19. O2 is sitting at 96 on room air.
[2024-04-23 15:27] LABS: Magnesium 2.1 mg/dL (1.7-2.3)
[2024-04-23 15:43] LABS: D Dimer 1.12 ug/mLFEU (0-0.59)
[2024-04-23] MEDS: magnesium oxide 400 mg tablet PO (17:27)
--- NOTE | 2024-04-23 17:30 | ECG_ITS ---
[facility] Test Date: 2024-04-23 Pat Name: Ira Frost Department: Room: 102 Gender: Female Chore Tender: : 1945 Requested By: Mega Magdaleno Order Number: [id number] Carter MD: Bere Santos M.D. Measurements Intervals [place] Rate: 58 P: 76 VA: 142 QRS: 66 QRSD: 98 T: 70 QT: 410 QTc: 405 Interpretive Statements SINUS BRADYCARDIA Compared to ECG 04/23/2024 13:15:12 Sinus rhythm no longer present Electronically Signed On 04-26-2024 00:58:03 CDT by Bere Santos M.D. [email or web address]
[2024-04-23 18:01] LABS: Troponin 5 6HR 17.05 ng/L (0-10); Troponin 5 6HR Delta 1.05 ng/L (0-12)
--- NOTE | 2024-04-23 18:11 | PC.NURSE ---
Per conversation with Dr. Burgess, metoprolol 12.5 is to be held if blood pressures fall below 90/60. Patient is currently in sinus rhythem. Pressure is 139/77 pulse is 78
[2024-04-23] MEDS: apixaban 5 mg Tablet PO (20:59)
[2024-04-23] MEDS: metoprolol tartrate 25 mg Tablet 12.5 MG PO (20:59)
[2024-04-24] VITALS: BP 138/78; PULSE 61; RESP 17; TEMP 36.5; O2SAT 96
[2024-04-24 03:56] LABS: Thyroid Stimulating Hormone 5.75 uIU/mL (0.27-4.20)
[2024-04-24 04:00] VITALS: BP 104/56; PULSE 62; RESP 19; TEMP 36.9; O2SAT 96
[2024-04-24 04:06] LABS: Estmated Average Glucose 120; Hemoglobin A1C 5.8 % (4.0-6.0)
[2024-04-24 06:00] VITALS: PULSE 59
[2024-04-24 07:27] VITALS: BP 123/69; PULSE 80; RESP 77; TEMP 36.6; O2SAT 96
--- NOTE | 2024-04-24 08:15 | CT_ITS ---
WS: [id number] CT CHEST ANGIOGRAPHY WITH REFORMATS HISTORY: elevated dimer, new afib TECHNIQUE: Contiguous axial images are obtained through the chest during arterial injection of intrav enous contrast. Images are reconstructed to evaluate the pulmonary arteries. MIP imaging also reviewe d. All CT scans at [facility] use at least one of these dose optimization techniques: automat ed exposure control; mA and/or kV adjustment per patient size (includes targeted exams where dose is matched to clinical indication); or iterative reconstruction. CONTRAST: Omnipaque 350; 100 mL IV. DLP: 263.41 mGy.cm COMPARISON: 08/16/2023 Good contrast opacification of the pulmonary artery. No defects or pulmonary emboli. Mild atheroscler osis thoracic aorta. Mild cardiac enlargement. No pericardial effusions. Numerous mediastinal and hil ar lymph nodes are identified. These lymph nodes have been mildly prominent over several prior years. Patient does have a history of lymphoma. Largest lymph nodes at the AP window and para-aortic measur ing up to 14 mm in diameter. Dependent changes at the lung bases. No pneumonia. Pleural effusions described on the prior examinati on of 08/16/2023 have resolved. No change in the upper abdomen. Slightly lobulated LEFT adrenal gland i s unchanged. Mild increase in thoracic kyphosis. CT/CT angio chest PE protcl [id number] IMPRESSION: 1. No pulmonary embolism. 2. Dependent changes at the lung bases. 3. Resolved bilateral pleural effusions. 4. Indeterminate mediastinal and hilar lymphadenopathy. Similar to the most re cent examinations. May be reactive.
[2024-04-24] MEDS: magnesium oxide 400 mg tablet PO (08:57)
[2024-04-24] MEDS: metoprolol tartrate 25 mg Tablet 12.5 MG PO (08:58)
[2024-04-24] MEDS: apixaban 5 mg Tablet PO (08:58)
--- NOTE | 2024-04-24 09:38 | PC.CHAP ---
Pastoral Care Encounter/Spiritual Assessment Type of Contact [] Declined bleacher lard visit [] Patient/Family/Request visit [] Outpatient visit [] Follow-up visit [] Physician referral [] Code/Alert [x] Routine visit [] Staff referral [] Actively dying [] Patient sleeping [] Family support [] [] Out of room [] Palliative care [] [] Receiving care in room [] Pre-surgical visit [] Trauma [] Long length of stay [] ICU visit [] Other: Relational/Emotional Strength [x] Patient feels connected with others/family/visitors/staff [] Distress [] Loneliness/isolation [] Abandonment Spirituality of Patient [x] Person of Yuli [] Attends Episcopal of their Yuli [x] Believes in Prayer [] Reads Bible or Pentecostal materials [] There are Spiritual issues to be addressed Supervisor [employer] Interventions [x] Prayer [x] Active listening [] Non-anxious presence [x] Spiritual/emotional support [] Crisis/trauma care [] Spiritual counseling [] Bereavement support [] Provided bereavement packet [] Provided Bible/devotional materials [] Provided toy/stuffed animal, coloring book to patient or family member [] Provided Communion [] Anointing/[place] [] Salvation [x] Completed spiritual assessment [] Other: Impact on Illness or Injury [] Angry [] Fearful [] Anxious [] Often cries [] Exhaustion [] Unable to work [] Unable to attend sabianist [] Unable to walk/stand [] Unable to read [] Unable to drive [] Unable to eat/drink [] Unable to sleep [] Unable to be with family [] Patient intubated [] Other: Summary Time spent with patient 5 min
[2024-04-24 12:00] VITALS: BP 139/73; PULSE 63; RESP 22; TEMP 36.7; O2SAT 96
--- NOTE | 2024-04-24 12:58 | P.DS_ITS ---
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 She reported feeling unwell starting yesterday, with what she believed to be a fever. She noted her usual temperature is 97?F, but yesterday it aurea to 99?F. She experienced skin sensitivity typical of a fever and general malaise, which led her to believe she might be developing pneumonia, similar to an incident earlier this year. However, at the walk-in clinic she was found to have atrial fibrillation with rapid ventricular response and was directed to the emergency room for further evaluation and management. Yesterday she had a fluttery sensation in the chest noted throughout the day. Her chest felt a bit unusual but denies any actual chest pain. No reports of any runny nose, sore throat, cough, difficulty breathing or other respiratory symptoms. No GI complaints. No headache. She took some extra vitamin C and other vitamins as she usually does when she feels like she might be getting ill and often is better the next day. She did not feel any better this morning prompting her visit to [facility]. They are her EKG showed heart rate in the 140s to 160s. On arrival to the emergency room, EKG showed atrial fibrillation with heart rate at 94. Subsequent EKG showed spontaneous conversion to sinus rhythm in the 60s. Baseline troponin was 16. proBNP minimally elevated for her age at 496, blood glucose was found to be 160 but electrolytes/chemistries were otherwise unremarkable. CBC also unremarkable. TSH was normal at 3.54. Mrs. Frost is generally healthy, without a history of hypertension, diabetes, cardiovascular disease, stroke or kidney disease, and does not take prescription medications regularly. Instead, she relies on vitamins. She has been out of her fish oil lately but otherwise taking them as prescribed. She has a brother with a known history of atrial fibrillation who has undergone ablation, though he reportedly does not suffer from any additional cardiac issues. In talking with her, I did learned that she has recently had a long trip to [place] to see the [facility], returning last Tuesday. She denies any pain in her legs or swelling. No pleuritic pain or other obvious symptoms of blood clot. While the patient?s rhythm returned to normal in the ER, the decision has been made for overnight monitoring and medication initiation to prevent further episodes and potential clot formation arising from atrial fibrillation. She is quite symptomatic when in atrial fibrillation with rapid ventricular response and lives alone. Hospital Course Hospital Course Patient was admitted to the hospital further evaluation and management of new onset of atrial fibrillation. She received a dose of metoprolol in the ER after which her heart rate settled down and she converted back into normal sinus rhythm. She was monitored overnight and heart rate remained stable. She did have mildly elevated D-dimer on admission. Given her history of malignancy, new onset of A-fib with mildly elevated D-dimer CTA was done and pulmonary embolism was ruled out. Echocardiogram was done though results are awaited. Troponin cycled during hospitalization remained flat. She has been discharged in hemodynamically stable condition on oral Eliquis for stroke prevention along with metoprolol 12.5 mg twice daily. She has to follow- up with a primary care provider within next 1 week. Physical Exam Narrative: Constitutional: Awake and alert, cooperative HEENT: Normocephalic, atraumatic, pupils are equally reactive, nasopharynx is clear, oropharynx with moist mucous membranes Neck: Supple Respiratory: Clear to auscultation bilaterally without any rales rhonchi or wheezes noted Cardiovascular: Currently in sinus rhythm. No murmurs. No jugular venous distention Abdomen: Soft, nontender, nondistended with positive bowel sounds Extremities: No pitting edema, no acute synovitis. No calf tenderness. Skin: Dry, no acute rashes or bruises noted Neuro: Speech clear, face symmetric, moves all extremities Psych: Normal affect, oriented x3 Discharge Data Studies Completed and Pending Completed Studies During Hospitalization Category Date Time Status CTA chest [CT angio chest PE protcl [id number]] Routine Cat Scan 04/24/24 08:15 Completed XR chest 1V portable [id number] Stat Exams 04/23/24 11:29 Completed Pending at discharge Category Date Time Status US echo complete [CV. echo complete* [id number]] Stat Ultrasound 04/23/24 12:18 Taken Radiology Impressions Chest X-Ray 04/23/24 11:29 IMPRESSION: 1. Emphysema. Chest CTA 04/24/24 08:15 IMPRESSION: 1. No pulmonary embolism. 2. Dependent changes at the lung bases. 3. Resolved bilateral pleural effusions. 4. Indeterminate mediastinal and hilar lymphadenopathy. Similar to the most recent examinations. May be reactive. Laboratory Results WBC 4.80 10^3/uL (3.29-11.43) 04/23/24 11:35 RBC 4.31 10^6/uL (3.85-5.65) 04/23/24 11:35 Hgb 13.10 g/dL (11.27-16.99) 04/23/24 11:35 Hct 41.8 % (36-47) 04/23/24 11:35 MCV 97.0 fl (85-98) 04/23/24 11:35 MCH 30.4 pg (27-33) 04/23/24 11:35 MCHC 31.3 g/dL (30-55) 04/23/24 11:35 RDW 13.6 % (12.1-15.1) 04/23/24 11:35 Plt Count 153 10^3/cmm (157-399) L 04/23/24 11:35 MPV 9.1 fL (7.4-10.4) 04/23/24 11:35 Neut % (Auto) 57.5 % 04/23/24 11:35 Lymph % (Auto) 32.5 % 04/23/24 11:35 [place] % (Auto) 7.7 % 04/23/24 11:35 Eos % (Auto) 1.5 % 04/23/24 11:35 Baso % (Auto) 0.4 % 04/23/24 11:35 Neut # (Auto) 2.76 10^3/uL (1.8-7.7) 04/23/24 11:35 Lymph # (Auto) 1.6 10^3/uL (0.8-4.8) 04/23/24 11:35 [place] # (Auto) 0.4 10^3/uL (0.2-0.9) 04/23/24 11:35 Eos # (Auto) 0.1 10^3/uL (0.0-0.8) 04/23/24 11:35 Baso # (Auto) 0.0 10^3/uL (0.0-0.1) 04/23/24 11:35 Nucleated RBC % (auto) 0 % 04/23/24 11:35 Nucleated RBCs # 0.0 /100WBC 04/23/24 11:35 D-Dimer 1.12 ug/mLFEU (0-0.59) H 04/23/24 11:35 Sodium 138 mmol/L (136-145) 04/23/24 11:35 Potassium 4.0 mmol/L (3.5-5.1) 04/23/24 11:35 Chloride 103 mmol/L (98-107) 04/23/24 11:35 Carbon Dioxide 25 mmol/L (22-29) 04/23/24 11:35 Anion Gap 14.0 (5-19) 04/23/24 11:35 BUN 16 mg/dL (8-23) 04/23/24 11:35 Creatinine 0.7 mg/dL (0.5-0.9) 04/23/24 11:35 GFR Calculation Not Reportable 04/23/24 11:35 Glucose 160 mg/dL (65-115) H 04/23/24 11:35 Estimat Average Glucose 120 04/24/24 02:26 Hemoglobin A1c 5.8 % (4.0-6.0) 04/24/24 02:26 Calculated Osmolality 291 mOsm/kg (285-295) 04/23/24 11:35 Calcium 8.7 mg/dL (8.5-10.5) 04/23/24 11:35 Magnesium 2.1 mg/dL (1.7-2.3) 04/23/24 11:35 Total Bilirubin 0.3 mg/dL (0.15-1.2) 04/23/24 11:35 AST 14 U/L (0-32) 04/23/24 11:35 ALT 10 U/L (0-33) 04/23/24 11:35 Alkaline Phosphatase 96 U/L (35-105) 04/23/24 11:35 Troponin T Baseline 16 ng/L (0-10) H 04/23/24 11:35 Troponin T 120 Minute 18.88 ng/L (0-10) H 04/23/24 13:50 Delta Troponin T 2.88 ABS# (0-10) 04/23/24 13:50 Troponin T Hi Sens 6Hr 17.05 ng/L (0-10) H 04/23/24 17:30 Troponin T Hi Sens 6Hr Delta 1.05 ng/L (0-12) 04/23/24 17:30 NT-Pro-B Natriuret Pep 496 pg/mL (0-450) H 04/23/24 11:35 Total Protein 6.5 g/dL (6.6-8.7) L 04/23/24 11:35 Albumin 3.8 g/dL (3.5-5.2) 04/23/24 11:35 Globulin 2.7 g/dL (1.3-4.6) 04/23/24 11:35 TSH 5.75 uIU/mL (0.27-4.20) H 04/24/24 02:26 Urine Color Yellow (Yellow) 04/23/24 12:44 Urine Appearance Clear (CLEAR) 04/23/24 12:44 Urine pH 6.0 (5-7) 04/23/24 12:44 Ur Specific [place] 1.005 (1.005-1.030) 04/23/24 12:44 Urine Protein Negative (Negative) 04/23/24 12:44 Urine Glucose (UA) Negative (Normal) 04/23/24 12:44 Urine Ketones Negative (Negative) 04/23/24 12:44 Urine Blood Negative (Negative) 04/23/24 12:44 Urine Nitrate Negative (Negative) 04/23/24 12:44 Urine Bilirubin Negative (Negative) 04/23/24 12:44 Urine Urobilinogen 0.2 mg/dL (Negative) 04/23/24 12:44 Ur Leukocyte Esterase 1+ (Negative) A 04/23/24 12:44 Urine RBC 0-2 /hpf (0-2) 04/23/24 12:44 Urine WBC 0-5 /hpf (0-5) 04/23/24 12:44 Ur Squamous Epith Cells 0-5 /hpf (0-5) 04/23/24 12:44 Amorphous Sediment Not Reportable 04/23/24 12:44 Urine Bacteria None seen /hpf (NONE) 04/23/24 12:44 Hyaline Casts 1.21 /lpf 04/23/24 12:44 Vitals Last Vital Signs Temp 98.1 F 04/24/24 12:00 Pulse 63 04/24/24 12:00 Resp 22 H 04/24/24 12:00 BP 139/73 04/24/24 12:00 Pulse Ox 96 04/24/24 12:00 O2 Del Method Room Air 04/24/24 12:00 Discharge Plan Discharge Patient Disposition: Home Condition: Stable Prescriptions: New Eliquis 5 mg Tablet 5 mg PO BID@0900,2100 Qty: 60 0RF metoprolol tartrate 25 mg Tablet 12.5 mg PO BID@0900,2100 Qty: 30 0RF Continued multivitamin Tablet 2 tab PO TID ascorbic acid (vitamin C) [Vitamin C] 500 mg Tablet 1,000 mg PO TID cholecalciferol (vitamin D3) [Vitamin D3] 125 mcg (5,000 unit) Tablet 125 mcg PO DAILY Vitamin With Lots Of Herbs 2 tab PO TID vitamin E 670 mg (1,000 unit) Capsule 1 cap PO DAILY zinc acetate 50 mg (zinc) Capsule 50 mg PO DAILY omega-3 fatty acids 1,000 mg Capsule 2,000 mg PO TID Curcumin Caps 1 cap PO DAILY glycerin (adult) Suppository 1 supp OK BID PRN (Reason: constipation) Qty: 12 0RF magnesium oxide 400 mg magnesium Tablet 400 mg PO BID Discharge Orders: Discharge Order (Routine); Ordered 04/24/24 Ordered By: Francisco Blanco Referrals: Jn Miranda MD [Physician] - 04/30/24 10:00 am (This appointment is scheduled with Dr. Miranda as Dr. Reed is out of office. Thank you! ) Discharge Diet: As Directed Discharge Activity: Resume usual activity Patient Instructions: Metoprolol (By mouth) (Lopressor, Toprol XL), Apixaban (By mouth) (Eliquis), A-fib (Atrial Fibrillation) (DC), Opioid Safety Discharge Attestations Time Spent in Discharge Care*: greater than 30 min Specific Discharge Activities: educating patient, educating and/or supporting family/caregiver, discussing with pcp/other providers, discussing with registered nurse hh case manager/social workers/dc planners, documenting/other paperwork and evaluating patient/reviewing data Status at Discharge: Cognitive status at discharge: cognitively intact , Behavioral status at discharge: cooperative , Functional status at discharge: independent ambulation , Overall status at discharge: patient is back to baseline Quality Metrics Clinical Quality Measures [ No reported AMI, CVA or VTE this stay] Coding Level of Care Code 18514 Total time (in minutes) for Discharge: 60 Diagnoses New onset atrial fibrillation I48.91 Subjective fever R50.9 Elevated blood sugar R73.9 Diffuse large b-cell lymphoma, lymph nodes of multiple sites C83.38
[2024-04-24 13:54] VITALS: BP 139/73; PULSE 63; RESP 22; TEMP 36.7; O2SAT 96
--- NOTE | 2024-04-24 14:05 | PC.NURSE ---
Discharge Note Patient discharged to home via POV accompanied by self. Discharge instructions reviewed with patient and/or territory service representative. Mobile pharmacy medications and/or prescriptions provided. Belongings/home medications returned.
== END 2024-04-24 14:06 | disposition home or self-care (01) ==
LOC: ER 13:36 → CSU 13:46
PROVIDERS: Admitting Provider Hospitalist; Emergency Provider Family Medicine; PCP Family Medicine; Visit Provider Student in an Organized Health Care Education/Training Program
DX: I48.91 Unspecified atrial fibrillation (principal); R50.9 Fever, unspecified; R73.9 Hyperglycemia, unspecified; C83.38 Diffuse large B-cell lymphoma, lymph nodes of multiple sites; R79.1 Abnormal coagulation profile; R00.0 Tachycardia, unspecified
CPT/HCPCS: 36415; 71045; 71275; 80053; 81001; 83036; 83735; 83880; 84443; 84484; 85025; 85378; 93005; 93306; 99285; A9270; G0378

== ENCOUNTER 2024-06-05 14:00 | Outpatient (CLI) | payer MEDICARE, OTHER, SELFPAY ==
--- NOTE | 2024-06-05 14:09 | USCV_ITS ---
Ira Frost Age: 78 Gender: F : 1945 Exam Date: 06/05/2024 14:49 Ordering Phys: Jn Miranda MD Technologist: CT Exam Location: [facility] [place] Indication: BP: 128 / 81 HR: 70 Rhythm: Sinus Technical Quality: Adequate MEASUREMENTS (Male / Female) Normal Values 2D ECHO LVOT Diameter 2.0 cm LV Ejection Fraction MOD 4C 73.2 % LV Ejection Fraction MOD 2C 67.4 % LV Ejection Fraction 2C AL 68.1 % LA Diameter 3.3 cm RA Systolic Volume 4C AL 31.9 ml RA Systolic Volume 4C MOD 32.5 ml LA Sys Volume AL 51.0 cm cubed LA Sys Volume Index AL 29.6 cm cubed/m squared Aorta at Sinotubular Diameter 2.1 cm IVC Diameter 1.7 cm M-MODE LA Ao Ratio MM 1.3 AV Cusp Separation MM 1.9 cm DOPPLER AV Peak Velocity 341.0 cm/s LVOT Peak Velocity 113.0 cm/s AV Area Cont Eq vti 2.8 cm squared AV Area Cont Eq pk 1.1 cm squared MV Peak Velocity 71.0 cm/s MV Area PHT 3.1 cm squared Mitral E to A Ratio 1.3 TV Peak Velocity 228.0 cm/s TR Peak Velocity 270.0 cm/s TR Peak Gradient 29.2 mmHg TR Mean Velocity 177.0 cm/s TR Mean Gradient 15.5 mmHg TR Velocity Time Integral 73.5 cm TV Peak E Velocity 75.0 cm/s PV Peak Velocity 96.0 cm/s FINDINGS Left Ventricle Normal LV size ejection fraction of 73%. No gross wall motion abnormalities noted Right Ventricle The right ventricle is normal in size and function. Right Atrium The right atrium is normal in size. Left Atrium The left atrium is normal in size. Mitral Valve Mild mitral valve regurgitation. Aortic Valve Minimally thickened aortic valve with trace to mild aortic regurgitation Tricuspid Valve Mild tricuspid valve regurgitation. Estimated pulmonary artery peak systolic pressure 32 mmHg Pulmonic Valve No gross abnormalities noted Pericardium Normal pericardium without effusion. Aorta Normal ascending aorta dimension. IVC Normal inferior vena cava. CONCLUSIONS Normal LV size ejection fraction of 73%. No gross wall motion abnormalities noted. Mild mitral valve regurgitation. Minimally thickened aortic valve with trace to mild aortic regurgitation. Mild tricuspid valve regurgitation. Estimated pulmonary artery peak systolic pressure 32 mmH. There is no pericardial effusion. There are no intracardiac masses. Compared to the study from 04/28/2017, there may not be a significant change Dr Bere Santos MD [facility] (Electronically Signed) Final Date: 07 June 2024 08:28 S
== END 2024-06-05 14:01 | disposition home or self-care (01) ==
LOC: RAD 14:01
PROVIDERS: PCP Family Medicine; Visit Provider Family Medicine
DX: I48.91 Unspecified atrial fibrillation (principal)
CPT/HCPCS: 93306

== ENCOUNTER 2024-06-27 01:17 | Emergency (ER) | payer MEDICARE, OTHER, SELFPAY ==
[2024-06-27 01:19] VITALS: BP 151/80; PULSE 69; RESP 18; TEMP 36.6; O2SAT 97; BMI 20.9
[2024-06-27 01:23] VITALS: BP 151/80; PULSE 65; O2SAT 99
--- NOTE | 2024-06-27 01:23 | XRR_ITS ---
PROCEDURE INFORMATION: Exam: XR Abdomen Exam date and time: 06/27/2024 2:07 AM Age: 78 years old Clinical indication: Abdominal pain; Generalized; Additional info: Abd pain TECHNIQUE: Imaging protocol: Radiologic exam of the abdomen. Views: Frontal supine view of the abdomen. 1 View. COMPARISON: CT chest abdpel w/*[id number] 06/15/2019 2:19 PM FINDINGS: Gastrointestinal tract: Moderate to severe colonic stool burden. Vasculature: Few calcified pelvic phleboliths. Bones/joints: Diffuse degenerative change of the visualized osseous structures. XR/XR abdomen 1V* [id number] IMPRESSION: Constipation without acute finding.
--- NOTE | 2024-06-27 01:24 | ED_ITS ---
HPI - Nausea/Vomiting/Diarrhea 2 General: Chief complaint: Nausea/Vomiting/Diarrhea Stated complaint: DIARRHEA Time Seen by Provider: 06/27/24 01:19 History of Present Illness: 78-year-old female presents emergency ro om by ambulance with diarrhea that started tonight. She been constipated so she took an enema and then she was having diarrhea and she has been leaking so she called an ambulance. No abdominal pain. No nausea or vomiting. No fevers. No altered mental status. Related Data Home Medications Medication Instructions Recorded Confirmed Vitamin With Lots Of Herbs 2 tab PO TID 03/04/21 04/23/24 ascorbic acid (vitamin C) 500 mg 1,000 mg PO TID 03/04/21 04/23/24 tablet (Vitamin C) cholecalciferol (vitamin D3) 125 125 mcg PO DAILY 03/04/21 04/23/24 mcg (5,000 unit) tablet (Vitamin D3) multivitamin 2 tab PO TID 03/04/21 04/23/24 Curcumin Caps 1 cap PO DAILY 08/16/23 04/23/24 omega-3 fatty acids 1,000 mg 2,000 mg PO TID 08/16/23 04/23/24 capsule vitamin E 670 mg (1,000 unit) 1 cap PO DAILY 08/16/23 04/23/24 capsule zinc acetate 50 mg (zinc) capsule 50 mg PO DAILY 08/16/23 04/23/24 magnesium oxide 400 mg PO BID 10/02/23 04/23/24 Previous Rx's Medication Instructions Recorded glycerin (adult) 1 supp ME BID PRN constipation #12 10/02/23 ea apixaban 5 mg tablet (Eliquis) 5 mg PO BID@0900,2100 #60 tabs 04/24/24 metoprolol tartrate 25 mg tablet 12.5 mg (1/2 x 25 mg) PO 04/24/24 BID@0900,2100 #30 tabs glycerin (adult) 1 supp ME DAILY PRN constipation 06/27/24 #12 ea polyethylene glycol 3350 17 17 g PO DAILY #510 grams 06/27/24 gram/dose oral powder (Miralax) Allergies Allergy/AdvReac Type Severity Reaction Status Date / Time meperidine [From Demerol] Allergy Unknown Verified 06/27/24 01:23 Review of Systems 2 Narrative: Constitutional symptoms: Negative except as documented in HPI. Skin symptoms: Negative except as documented in HPI. Eye symptoms: Negative except as documented in HPI. ENMT symptoms: Negative except as documented in HPI. Respiratory symptoms: Negative except as documented in HPI. Cardiovascular symptoms: Negative except as documented in HPI. Gastrointestinal symptoms: Negative except as documented in HPI. Genitourinary symptoms: Negative except as documented in HPI. Musculoskeletal symptoms: Negative except as documented in HPI. Neurologic symptoms: Negative except as documented in HPI. Psychiatric symptoms: Negative except as documented in HPI. Endocrine symptoms: Negative except as documented in HPI. 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 Treated with CVP in 1999. In 2016, after transformation to DLBCL, treated with R-CHOP in 2016 followed by BEAM conditioning and autologous stem cell transplant in 2016. Expectant management in 07/2022. Surgical History (Updated 04/23/24 @ 14:24 by Kaia Burgess MD) History of cataract surgery Bilateral History of local excision of skin lesion Benign lesion arm, cheek, and scalp History of thoracentesis 08/1999 History of tonsillectomy 1949 Family History Mother Stroke Other Dementia Diabetes Suicide Denies family history of CAD (coronary artery disease) Clotting disorder Hyperlipidemia Psychiatric illness Chronic kidney disease (CKD) Anesthesia complication Bleeding disorder Lung disease Cancer Hypertension Social History (Updated 04/23/24 @ 14:24 by Kaia Burgess MD) Smoking and tobacco/nicotine status: never used tobacco/nicotine Alcohol intake: never Additional social history: family nearby Household members: none Physical Exam 2 Narrative: EXAM NARRATIVE: General: Alert, no acute distress. Skin: Warm, dry. Head: Normocephalic, atraumatic. Neck: Supple, trachea midline. Eye: Extraocular movements are intact. Ears, nose, mouth and throat: mucosa moist. Cardiovascular: Regular, Normal peripheral perfusion. Respiratory: Lungs are clear to auscultation, respirations are non-labored, breath sounds are equal, Symmetrical chest wall expansion. Gastrointestinal: Soft, Nontender, Non distended Musculoskeletal: Normal ROM, no deformity. Neurological: Alert and oriented, No focal neurological deficit observed. Psychiatric: Cooperative, appropriate mood & affect. Course 2 Vital Signs: Vital signs: Vital Signs Temperature 97.8 F 06/27/24 01:19 Pulse Rate 87 06/27/24 03:23 Respiratory Rate 18 06/27/24 01:19 Blood Pressure 140/72 06/27/24 03:23 Pulse Oximetry 94 06/27/24 03:23 Oxygen Delivery Me thod Room Air 06/27/24 03:23 MDM - Nausea/Vomiting/Diarrhea Medical Decision Making Abdominal x-ray: Constipation. This was reviewed and interpreted by myself the emergency room physician. I also reviewed the radiology report. Abdominal CT: Stercoral proctocolitis. This was reviewed and interpreted by myself the emergency room physician. I also reviewed the radiology report. Lab Review: Laboratory results were reviewed and interpreted by myself the emergency room physician. Lab work is fairly unremarkable although she does have an elevation in her BUN. Giving some fluids. I reviewed the patient's medical record. Assessment and plan: Constipation ?Enema, fluids and mag citrate in the emergency room. - Discharged home - Discussed plan with patient. Answered any questions. - Evaluation and treatment of this problem were appropriate in the emergency setting. Lab Data 06/27/24 02:35 06/27/24 02:35 Radiology Impressions Abdomen X-Ray 06/27/24 01:23 IMPRESSION: Constipation without acute finding. Abdomen/Pelvis CT 06/27/24 03:06 IMPRESSION: Stercoral proctocolitis, difficult to exclude neoplasm. Consider GI consultation. COMMENTS: Consistent with the [employer]'s Incidental Findings Committee white paper (J Am Pankaj Radiol 2018): Any incidental renal lesion less than 1 cm or classified as too small to characterize, or any incidental cystic renal lesion characterized as simple-appearing, is likely benign. No follow-up imaging is recommended for these lesions per consensus recommendations based on imaging criteria. Laboratory Results WBC 10.01 10^3/uL (3.29-11.43) 06/27/24 02:35 RBC 4.24 10^6/uL (3.85-5.65) 06/27/24 02:35 Hgb 12.90 g/dL (11.27-16.99) 06/27/24 02:35 Hct 40.7 % (36-47) 06/27/24 02:35 MCV 96.0 fl (85-98) 06/27/24 02:35 MCH 30.4 pg (27-33) 06/27/24 02:35 MCHC 31.7 g/dL (30-55) 06/27/24 02:35 RDW 14.7 % (12.1-15.1) 06/27/24 02:35 Plt Count 158 10^3/cmm (157-399) 06/27/24 02:35 MPV 8.7 fL (7.4-10.4) 06/27/24 02:35 Neut % (Auto) 83.5 % 06/27/24 02:35 Lymph % (Auto) 11.6 % 06/27/24 02:35 [place] % (Auto) 4.1 % 06/27/24 02:35 Eos % (Auto) 0.4 % 06/27/24 02:35 Baso % (Auto) 0.1 % 06/27/24 02:35 Neut # (Auto) 8.36 10^3/uL (1.8-7.7) H 06/27/24 02:35 Lymph # (Auto) 1.2 10^3/uL (0.8-4.8) 06/27/24 02:35 [place] # (Auto) 0.4 10^3/uL (0.2-0.9) 06/27/24 02:35 Eos # (Auto) 0.0 10^3/uL (0.0-0.8) 06/27/24 02:35 Baso # (Auto) 0.0 10^3/uL (0.0-0.1) 06/27/24 02:35 Nucleated RBC % (auto) 0 % 06/27/24 02:35 Nucleated RBCs # 0.0 /100WBC 06/27/24 02:35 Sodium 140 mmol/L (136-145) 06/27/24 02:35 Potassium 4.2 mmol/L (3.5-5.1) 06/27/24 02:35 Chloride 100 mmol/L (98-107) 06/27/24 02:35 Carbon Dioxide 29 mmol/L (22-29) 06/27/24 02:35 Anion Gap 15.2 (5-19) 06/27/24 02:35 BUN 35 mg/dL (8-23) H 06/27/24 02:35 Creatinine 0.8 mg/dL (0.5-0.9) 06/27/24 02:35 GFR Calculation Not Reportable 06/27/24 02:35 Glucose 109 mg/dL (65-115) 06/27/24 02:35 Calculated Osmolality 299 mOsm/kg (285-295) H 06/27/24 02:35 Calcium 9.6 mg/dL (8.5-10.5) 06/27/24 02:35 Total Bilirubin 0.2 mg/dL (0.15-1.2) 06/27/24 02:35 AST 21 U/L (0-32) 06/27/24 02:35 ALT 20 U/L (0-33) 06/27/24 02:35 Alkaline Phosphatase 87 U/L (35-105) 06/27/24 02:35 Total Protein 6.9 g/dL (6.6-8.7) 06/27/24 02:35 Albumin 4.3 g/dL (3.5-5.2) 06/27/24 02:35 Globulin 2.6 g/dL (1.3-4.6) 06/27/24 02:35 All radiology interpretation(s) finalized by discharge Discharge Plan Discharge Patient Disposition: Home Clinical Impression: Constipation Condition: Stable Prescriptions: New polyethylene glycol 3350 [Miralax] 17 gram/dose powder 17 g PO DAILY Qty: 510 0RF Rx Instructions: Take 1-2 scoops daily for the next 3 months to keep stools soft glycerin (adult) Suppository 1 supp ME DAILY PRN (Reason: constipation) Qty: 12 0RF No Action multivitamin Tablet 2 tab PO TID ascorbic acid (vitamin C) [Vitamin C] 500 mg Tablet 1,000 mg PO TID cholecalciferol (vitamin D3) [Vitamin D3] 125 mcg (5,000 unit) Tablet 125 mcg PO DAILY Vitamin With Lots Of Herbs 2 tab PO TID vitamin E 670 mg (1,000 unit) Capsule 1 cap PO DAILY zinc acetate 50 mg (zinc) Capsule 50 mg PO DAILY omega-3 fatty acids 1,000 mg Capsule 2,000 mg PO TID Curcumin Caps 1 cap PO DAILY glycerin (adult) Suppository 1 supp ME BID PRN (Reason: constipation) Qty: 12 0RF magnesium oxide 400 mg magnesium Tablet 400 mg PO BID metoprolol tartrate 25 mg Tablet 12.5 mg PO BID@0900,2100 Qty: 30 0RF Eliquis 5 mg Tablet 5 mg PO BID@0900,2100 Qty: 60 0RF Discharge Orders: Discharge ED (Routine); Ordered 06/27/24 Ordered By: Martha Harrison Referrals: Jaycee Reed MD [Primary Care Provider] - Discharge Diet: Advance as tolerated Patient Instructions: Constipation (ED), Opioid Safety, Pain Management Activity Restrictions/Additional Instructions: Thank you for choosing [facility] for your healthcare needs today. Please realize this is an emergency room and that we are providing you with a medical screening exam and this may not be complete and all inclusive of all the testing and or work up that you may need to determine your ailment or severity of your illness. You have been screened and evaluated and felt safe for discharge. Health conditions do change or evolve sometimes and as such it is important that you follow up with your Primary Doctor to be re checked, 3-5 days is a general good time frame for follow up. 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
[2024-06-27 02:45] LABS: Basophils % 0.1 %; Eosinophils % 0.4 %; Hematocrit 40.7 % (36-47); Lymphocytes # 1.2 10^3/uL (0.8-4.8); Lymphocytes % 11.6 %; Mean Corpuscular HGB Conc 31.7 g/dL (30-55); Mean Corpuscular Hemoglobin 30.4 pg (27-33); Mean Platelet Volume 8.7 fL (7.4-10.4); Monocytes # 0.4 10^3/uL (0.2-0.9); Monocytes % 4.1 %; Neutrophils # 8.36 10^3/uL (1.8-7.7); Neutrophils % 83.5 %; Nucleated Red Blood Cells % 0 %; Platelet Count 158 10^3/cmm (157-399); Red Blood Count 4.24 10^6/uL (3.85-5.65); Red Cell Distribution Width 14.7 % (12.1-15.1); White Blood Count 10.01 10^3/uL (3.29-11.43)
[2024-06-27 03:01] LABS: Alanine Aminotransferase 20 U/L (0-33); Albumin Level 4.3 g/dL (3.5-5.2); Alkaline Phosphatase 87 U/L (35-105); Anion Gap 15.2 (5-19); Aspartate Amino Transferase 21 U/L (0-32); Blood Urea Nitrogen 35 mg/dL (8-23); Calcium 9.6 mg/dL (8.5-10.5); Carbon Dioxide 29 mmol/L (22-29); Chloride 100 mmol/L (98-107); Creatinine Clr Calc Pharmacy 53.2604; Globulin 2.6 g/dL (1.3-4.6); Glucose 109 mg/dL (65-115); Osmolality Calculated 299 mOsm/kg (285-295); Potassium 4.2 mmol/L (3.5-5.1); Sodium 140 mmol/L (136-145); Total Bilirubin 0.2 mg/dL (0.15-1.2); Total Protein 6.9 g/dL (6.6-8.7)
--- NOTE | 2024-06-27 03:06 | CTR_ITS ---
PROCEDURE INFORMATION: Exam: CT Abdomen And Pelvis With Contrast Exam date and time: 06/27/2024 3:19 AM Age: 78 years old Clinical indication: Constipation; Additional info: Abdominal pain TECHNIQUE: Imaging protocol: Computed tomography of the abdomen and pelvis with contrast. Radiation optimization: All CT scans at this facility use at least one of these dose optimization techniques: automated exposure control; mA and/or kV adjustment per patient size (includes targeted exams where dose is matched to clinical indication); or iterative reconstruction. Contrast material: OMNI 350; Contrast volume: 100 ml; Contrast route: INTRAVENOUS (IV); COMPARISON: CR (ABDOMEN, ) 06/27/2024 2:07 AM RADIATION DOSE METRICS: Total DLP (mGy-cm): 444.43 FINDINGS: Lungs: Basilar scarring/atelectasis. Heart: Base of heart is unremarkable as visualized. Diaphragm: Sliding-type hiatal hernia. Liver: Normal. No mass. Gallbladder and biliary ducts: Normal. No calcified stones. No ductal dilation. Pancreas: Normal. No ductal dilation. Spleen: Normal. No splenomegaly. Adrenal glands: Normal. No mass. Kidneys and ureters: Too small characterize is a anterior right renal hypodensity (series 3, images 31-34). Stomach and bowel: Prominent rectal stool burden. Diffuse mild circumferential rectal wall thickening. Stranding of the mesorectal fat. Diverticulosis without evidence of diverticulitis. Appendix: No evidence of appendicitis. Intraperitoneal space: Pelvic ascites which collects about the presacral fat. Stable misting of the mesentery. Vasculature: Minimal calcified atherosclerotic disease. Lymph nodes: Unremarkable. No enlarged lymph nodes. Urinary bladder: Unremarkable as visualized. Reproductive: Unremarkable as visualized. Bones/joints: Transitional lumbosacral anatomy. Degenerative change of the visualized osseous structures. Posterior disc protrusions causing [id number] spinal canal stenosis at the lower lumbar spine. Soft tissues: Unremarkable. CT/CT abdomen pelvis w con* [id number] IMPRESSION: Stercoral proctocolitis, difficult to exclude neoplasm. Consider GI consultation. COMMENTS: Consistent with the [place] [employer]'s Incidental Findings Committee white paper (J Am Pankaj Radiol 2018): Any incidental renal lesion less than 1 cm or classified as too small to characterize, or any incidental cystic renal lesion characterized as simple-appearing, is likely benign. No follow-up imaging is recommended for these lesions per consensus recommendations based on imaging criteria.
[2024-06-27] MEDS: iohexol 350 mg/mL 500 mL Btl (per mL) IV (03:20)
[2024-06-27 03:23] VITALS: BP 140/72; PULSE 87; O2SAT 94
[2024-06-27] MEDS: ondansetron 2 mg/ML SDV 2 mL 4 MG IVP (04:43)
[2024-06-27] MEDS: mineral oil ENEMA 133 mL PR (04:50)
[2024-06-27 05:00] VITALS: BP 143/92; PULSE 90; O2SAT 98
[2024-06-27] MEDS: sodium chloride 0.9% 1,000 ML 999 ML IV (05:12)
[2024-06-27] MEDS: magnesium citrate Btl 296 mL PO (05:55)
[2024-06-27 06:50] VITALS: BP 126/73; PULSE 85; O2SAT 95
== END 2024-06-27 06:47 | disposition home or self-care (01) ==
PROVIDERS: Emergency Provider Emergency Medicine; PCP Family Medicine
DX: K59.00 Constipation, unspecified (principal); Z79.01 Long term (current) use of anticoagulants; Z85.72 Personal history of non-Hodgkin lymphomas
CPT/HCPCS: 36415; 74018; 74177; 80053; 85025; 96374; 99285; J2405; J7030

== ENCOUNTER → 2024-06-28 14:56 | Outpatient (BNVA) | payer MEDICARE, OTHER, SELFPAY | PROVIDERS: PCP Family Medicine; Referring Provider Family Medicine; Visit Provider Internal Medicine Cardiovascular Disease | DX: I48.91 Unspecified atrial fibrillation (principal); R73.9 Hyperglycemia, unspecified; K59.09 Other constipation; Z95.828 Presence of other vascular implants and grafts; C83.38 Diffuse large B-cell lymphoma, lymph nodes of multiple sites; Z79.01 Long term (current) use of anticoagulants | CPT/HCPCS: 99204 ==

== ENCOUNTER 2024-07-17 08:48 | Outpatient (CLI) | payer MEDICARE, OTHER, SELFPAY ==
--- NOTE | 2024-07-17 | ECG_ITS ---
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 Interpretive Statements Lung unchanged pre/post procedure; Intraprocedure shortess of breath; Symptoms resoled by discharge PROCEDURE: At the baseline, the EKG revealed normal sinus rhythm with normal ST Ts. The baseline heart was 64 bpm with a blood pressue of 127/74 mm of Hg Lexiscan was infused over a period of 20 seconds. A total of 0.4 milligrams of Lexiscan was infused. The stress phase was continued for a total of 5 minutes. Heart rate at the end of the stress phase was 101 bpm with a blood pressure 138/78 mm of Hg. The EKG at the peak infusion revealed no significant changes. Sestamibi was injected 20 seconds after the Lexiscan infusion. Heart rate at the end of the recovery phase was 89 bpm with a blood pressure of 134/79 mm of Hg. CONCLUSION: 1. No significant EKG changes with the LexiScan infusion 2. No LexiScan induced chest pain or cardiac arrhythmia 3. Normal blood pressure and heart rate response 4. Sestamibi/sestamibi perfusion scan pending; see separate report. Electronically Signed On 07-19-2024 18:34:00 BUSINESS LIBRARIAN by Bere Santos M.D. [email or web address]
--- NOTE | 2024-07-17 08:43 | NMCV_ITS ---
NM ander perf SPECT r/s* [id number] Ira Frost Age: 79 Gender: F : 1945 Exam Date: 07/17/2024 09:44 Ordering Phys: Bere Santos MD ([email or web address]) Technologist: SANDRO Sotelo Exam Location: [facility] Indications: A-fib STRESS TEST Please see separate stress test report in [facility] for full findings IMAGE PROTOCOL Rest/Stress 1 Lexiscan Day Radiopharmaceutical Dose (mCi) Administration Site Administered by Rest: Tc-99m 10.8 IV Erica Colten, PHYSICAL THERAPY TECHNICIAN Sestamibi Stress:Tc-99m 32.6 IV Erica Coltne, PHYSICAL THERAPY TECHNICIAN Sestamibi Rest: 17-Jul-2024 60 Discovery 630 Stress: 17-Jul-2024 30 Discovery 630 0.4mg Lexiscan. Images obtained in supine and prone position. SPECT RESULTS Technical Quality: Good Raw Data Analysis: Subdiaphragmatic activity Image Corrections: No attenuation or motion correction applied Summed Stress Score: 0 Summed Rest Score: 1 Summed Difference Score: 0 PERFUSION FINDINGS Uniform myocardial tracer uptake with no significant perfusion abnormalities. FUNCTIONAL RESULTS (calculated via Gated SPECT) Stress Image LV EF (%): 76 Stress EDV (mL):62 TID: 0.7 Stress ESV (mL):15 FUNCTIONAL FINDINGS: Segmental wall motion analysis revealing no gross wall motion abnormalities IMPRESSIONS 1. Myocardial perfusion imaging revealing uniform tracer uptake with no significant perfusion abnormalities 2. Normal LV ejection fraction of 76%. 3. LV wall motion analysis revealing no gross wall motion abnormalities. 4. Normal LV volume Low probability for coronary ischemia, based on the above findings Dr Bere Santos MD FACC (Electronically Signed) Final Date: 17 July 2024 20:41 S
[2024-07-17 08:52] VITALS: BMI 21.7
[2024-07-17] MEDS: regadenoson 0.4 Mg/5 ml Syringe IVP (10:10)
[2024-07-17] MEDS: aminophylline 25 mg/mL SDV 20 mL IVP (10:16)
[2024-07-17 10:23] VITALS: BP 134/77; PULSE 88
== END 2024-07-17 08:49 | disposition home or self-care (01) ==
LOC: CDL 08:49
PROVIDERS: PCP Family Medicine; Visit Provider Internal Medicine Cardiovascular Disease
DX: Z98.61 Coronary angioplasty status (principal); R06.02 Shortness of breath
CPT/HCPCS: 36415; 78452; 93017; 96374; A9500; J0280; J2785

== ENCOUNTER 2024-09-19 09:20 | Outpatient (CLI) | payer MEDICARE, OTHER, SELFPAY ==
--- NOTE | 2024-09-19 09:25 | MM_ITS ---
WS: [id number] BILATERAL SCREENING DIGITAL TOMOSYNTHESIS MAMMOGRAM WITH CAD HISTORY: SCREENING COMPARISON: 05/26/2023, 03/08/2023, 01/15/2022, cyst aspiration 07/13/2023 Bilateral CC and MLO views with tomosynthesis and synthetic mammography submitted. Computer aided detection analyzed. Breast composition: The breasts are heterogeneously dense, which may obscure small masses. No suspicious masses, microcalcifications or architectural distortion. Well-circumscribed mass near 12:00 middle depth LEFT breast measures 9 x 7 x 10 mm. There is an adjacent biopsy clip. This was a cyst that underwent aspiration that has returned. There are additional scattered calcifications. No suspicious masses. MM/MM scr BI tomosynthesis 08100 IMPRESSION: BI-RADS: 2 - Benign FOLLOW UP: 1 Year Follow-up
== END 2024-09-19 09:21 | disposition home or self-care (01) ==
LOC: RAD 09:21
PROVIDERS: PCP Family Medicine; Visit Provider Family Medicine
DX: Z12.31 Encounter for screening mammogram for malignant neoplasm of breast (principal); R92.333 Mammographic heterogeneous density, bilateral breasts; N63.25 Unspecified lump in the left breast, overlapping quadrants; N60.02 Solitary cyst of left breast; R92.1 Mammographic calcification found on diagnostic imaging of breast
CPT/HCPCS: 77063; 77067

== ENCOUNTER → 2025-01-02 09:52 | Outpatient (BNVA) | payer MEDICARE, OTHER, SELFPAY | PROVIDERS: PCP Family Medicine; Visit Provider Nurse Practitioner Family | DX: I48.91 Unspecified atrial fibrillation (principal); Z95.828 Presence of other vascular implants and grafts | CPT/HCPCS: 99214 ==